=== PATIENT | female | born 1930 | race Caucasian/White ===

== ENCOUNTER 2016-12-17 07:30 | Inpatient (IN) | payer MEDICARE, OTHER ==
--- NOTE | 2016-11-11 16:07 | NUR ---
PMH, allergies, meds reviewed and documented. Preop and DOS instructions given including handouts of medications to stop before surgery, shower instructions with CHG soap, Surgical Services pamphlet, Guidebook, and my contact information.
--- NOTE | 2016-11-19 16:23 | NUR ---
JOINT REPLACEMENT PREOP CLASS PATIENT ATTENDED JOINT REPLACEMENT PREOP CLASS. CASE MANAGEMENT CONTACT INFORMATION PROVIDED. EDUCATION WAS PROVIDED REGARDING WHAT TO EXPECT BEFORE, DURING AND AFTER SURGERY. INCLUDING: OVERVIEW OF ANATOMY AND PHYSIOLOGY HOSPITAL TREATMENT SCHEDULE THERAPY DEMONSTRATION CASE MANAGEMENT RESPONSIBILITIES DISCHARGE PLANNING EQUIPMENT NEEDS JOINT REPLACEMENT WORKBOOK ANTI-COAGULATION SURGERY STRONG NUTRITIONAL PROTOCOL DISCHARGE INSTRUCTIONS [facility] PATIENT PORTAL, WITH INSTRUCTIONS CJR AND PREOP SURVERY PREOP BATHING- CHG GIVEN ALL PATIENT'S QUESTIONS ANSWERED TO THEIR SATISFACTION. PATIENTS AND COACHES ENCOURAGED TO CALL WITH ANY ADDITIONAL QUESTIONS OR CONCERNS. CM FOLLOWING FOR TRANSITIONAL CARE PLANNING NEEDS DURING HOSPITALIZATION.
[2016-12-17] VITALS (40 sets, daily range): BP systolic 122–213; BP diastolic 75–118; PULSE 63–100; RESP 11–18; TEMP 96.7–97.8; O2SAT 92–99; Ht 157.5 cm; Wt 76.7 kg
[~2016-12-17] VITALS: Ht 157.5 cm; Wt 76.7 kg
[~2016-12-17 07:30] MED LIST: ACET-62 PO; ACETAMINOPHEN 500 MG TABLET PO ONE; ASPI81TA2 PO; BETA1TAB22 PO; CALC-984 PO; CARV25TA PO; CLON0.1T PO; DEXAMETHASONE 4mg/ml - 1ml INJECTION IV ONE; FAMOTIDINE 20mg IVPB 50 ML IV ONE; FISH1CAP28 PO; FLUT9.9S EA NOSTRIL; FURO-153 PO; LEVO50TA11 PO; LIDOCAINE 1% (10mg/ml) 2ml SDV SQ ONE; LOSA50TA2 PO; LR 1,000 ML IV SCH; MAGN500C4 PO; MECL-103 PO; METOCLOPRAMIDE 10mg/2ml INJECTION IV ONE; MULT1TAB69 PO; NOZIN NASAL SWAB NS ONE; OMEP20CA10 PO; ONDANSETRON 4mg/2ml INJECTION IV ONE; POTA10TA16 PO
[2016-12-17] MEDS ORDERED: EPINEPHRINE 0.25 MG, BUPIVACAINE 0.25% 75 MG, MORPHINE SULFATE 15 MG in NORMAL SALINE 3... INJ ONE (08:00)
[2016-12-17] MEDS ORDERED: VANCOMYCIN 1 GRAM INJECTION ONE (08:41)
[2016-12-17 08:42] LABS: BASOPHILS % (AUTO) 0.5 % (0-2); EOSINOPHILS # (AUTO) 0.3 T/MM3 (0-0.5); EOSINOPHILS % (AUTO) 5.3 % (0-4); HCT - HEMATOCRIT 37.6 % (36-46); HGB - HEMOGLOBIN 12.2 GM/DL (12-16); IMMATURE GRANULOCYTE # (AUTO) 0.02 T/MM3 (0.00-0.03); IMMATURE GRANULOCYTE % (AUTO) 0.4 % (0.0-0.5); LYMPHOCYTES # (AUTO) 1.9 T/MM3 (1-4.8); LYMPHOCYTES % (AUTO) 35.2 % (23-45); MEAN CORPUSCULAR HGB CONC(MCHC 32.4 GM/DL (31-37); MEAN CORPUSCULAR VOLUME 89.5 UM3 (80-100); MEAN PLATELET VOLUME 9.2 UM3 (9.4-12.4); MONOCYTES # (AUTO) 0.5 T/MM3 (0-0.8); MONOCYTES % (AUTO) 8.8 % (0-9.0); NEUTROPHILS #(AUTO)-ABSOLUTE 2.7 T/MM3 (1.8-7.7); NEUTROPHILS % (AUTO) 49.8 % (33-66); WBC - WHITE BLOOD COUNT 5.5 T/MM3 (4.5-11.0)
[2016-12-17 08:51] LABS: ANION GAP 13 MEQ/L (5-15); BUN/CREATININE RATIO 47 RATIO (6-26); CALCIUM 10.3 MG/DL (8.4-10.2); CHLORIDE 102 MEQ/L (98-107); CO2 - CARBON DIOXIDE 28 MEQ/L (22-30); CREATININE 1.1 MG/DL (0.7-1.2); GLOMERULAR FILTRATION RATE 47; GLUCOSE 104 MG/DL (65-110); POTASSIUM 4.4 MEQ/L (3.6-5); SODIUM 143 MEQ/L (134-144)
--- NOTE | 2016-12-17 09:17 | NUR ---
STATUS ESTEFANIA YEN, CIRCULATING RN, NOTIFIED OF PATIENT BUN OF 52. DR. CHAMORRO TO BE NOTIFIED.
[2016-12-17] MEDS ORDERED: NORMAL SALINE 1,000 ML IV ONE (09:30)
--- NOTE | 2016-12-17 09:59 | NUR ---
CM CM ATTEMPTED VISIT. PT IS AT PROCEDURE. NO FAMILY PRESENT IN THE ROOM. CM CONTACT INFORMATION AND ADVANCED DIRECTIVE INFORMATION IS LEFT AT THE BEDSIDE.
--- NOTE | 2016-12-17 10:22 | ANESPREOP ---
Anesthesia Record Date and Time DATE: 12/17/16 TIME: 10:20 Proposed Surgical Procedure LT TKA NPO since: mn Allergies: Coded Allergies: labetalol (Verified Allergy, Unknown, RASH, 12/17/16) adhesive tape (Verified Adverse Reaction, Intermediate, RASH, 12/17/16) codeine (Verified Adverse Reaction, Intermediate, HYPERACTIVE, 12/17/16) Ht/Wt/BMI Height: 5 ' 2.00 " Weight: 72.600 kg BMI: 29.3 kg/m2 Vital Signs Date Time Temp Pulse Resp B/P Pulse Ox O2 Delivery O2 Flow Rate FiO2 12/17/16 09:35 63 12/17/16 08:31 97.8 15 178/78 94 Room Air Medications Inpatient Medications Current Medications Medications (Trade) Dose Ordered Sig/Patrick Start Time Stop Time Status Last Admin Dose Admin Lactated Ringer's (Lactated Ringers) 1,000 ml @ 50 mls/hr Q20H 12/17/16 07:00 12/17/16 09:31 DC Acetaminophen (Acetaminophen) 500 Mg Tablet, 2 TAB PO BID PRN for PAIN, ( Reported) Do not exceed 3,200 mg of acetaminophen in a 24 hours period. Last Taken: on 12/16/16 2130 Aspirin (Aspirin) 81 Mg Tab.chew, 1 TAB PO WS, (Reported) Last Taken: on 12/08/16 Calcium Carbonate/Vitamin D3 (Calcium 600 + Vit D 400 Caplet) 1 Each Tablet, 1 TAB PO DAILY, (Reported) Last Taken: on 12/16/16 1800 Carvedilol (Coreg) 25 Mg Tablet, 1 TAB PO BIDWM , (Reported) BEST WITH FOOD. Last Taken: on 12/17/16 0700 Clonidine HCl (Clonidine HCl) 0.1 Mg Tablet, 0.5 TAB PO BID, (Reported) 1 TAB IN AM AND 0.5 TAB PO IN PM Last Taken: on 12/17/16 0700 Fluticasone Propionate (Flonase Allergy Relief 50 mcg/actuation Nasal) 9.9 Ml [place].susp, 2 SPRAY EA NOSTRIL DAILY PRN for ALLERY SYMPTOMS, (Reported) Last Taken: on 12/16/16 1400 Furosemide (Lasix) 40 Mg Tablet, 0.5 TAB PO BID , (Reported) ONE HALF TABLET IN AM AND ONE HALF TABLET AT NOON Last Taken: on 12/16/16 1200 Levothyroxine Sodium (Levothyroxine Sodium) 50 Mcg Tablet, 50 MCG PO ACB, (Reported) Once daily before breakfast. Last Taken: on 12/15/16 Losartan Potassium (Cozaar) 50 Mg Tablet, 50 MG PO BID, (Reported) 1 TAB PO IN AM, AND 0.5 TAB IN PM Last Taken: on 12/16/16 1800 Magnesium Oxide (Magnesium) 500 Mg Capsule, 500 MG PO DAILY, (Reported) ON FRI, FRI, FRIDAY Last Taken: on 12/16/16 0700 Meclizine HCl (Meclizine HCl) 25 Mg Tablet, 1 TAB PO Q6HR PRN for dizziness, (Reported) Last Taken: on Unknown Date & Time Multivitamin (Multivitamins) 1 Each Tablet, 1 TAB PO DAILY, (Reported) Last Taken: on 12/16/16 1800 [place]-3 Fatty Acids/Fish Oil (Rosebush 3 1,000 mg Softgel) 1 Each Capsule, 2 CAP PO DAILY, (Reported) Last Taken: on 12/16/16 0700 Omeprazole (Omeprazole) 20 Mg Capsule.dr, 1 CAP PO ACB, (Reported) Last Taken: on 12/17/16 0700 Potassium Chloride (Klor-Con M10) 10 Meq Tablet , 2 TAB PO BID, (Reported) Last Taken: on 12/16/16 0700 Vit A/Vit C/Vit E/Zinc/Copper (Preservision Areds Tablet) 1 Each Tablet, 1 TAB PO DAILY, (Reported) Last Taken: on 12/16/16 1800 Currently on Beta Debbie: Yes Beta Debbie Last Taken: 12/17/16 0700 Medical/Surgical History Anesthesia PMH: Reports: *Hypertension, Arthritis (USES WALKER AT HOME), Cancer (SKIN CANCER-EXCISION), Other ([place]), Reflux (well controlled with meds), Thyroid Disease (LOW, SYNTHROID HOME USE) Smoking Status: Never smoker Use Chewing Tobacco?: No Second Hand Exposure: No Substance Use Type: does not use Alcohol Intake: none HX of Last Menstrual Period: POST MENOPAUSAL Past Surgical History Orthopedic Surgeries: Yes - RIGHT TOTAL SHOULDER Abdominal Surgeries: No Genitourinary Surgeries: Yes - BLADDER SLING Cardiac Surgeries: No Endocrine Surgeries: No Reproductive Surgeries: Yes - VAG HYSTERECTOMY; BREAST BIOPSIES Neurological Surgeries: Yes - LADI CTR Ear Surgeries: Yes - FOR DEAFNESS, LT EAR Nose Surgeries: No Throat Surgeries: No Other Surgeries: - CATARACT LADI; Anesthesia Adverse Reactions: FOUND none Family Hx of Anesthesia Advers: none Hx of Motion Sickness: No Pertinent Findings Laboratory Tests 12/17/16 08:35 Physical Exam Respiratory: Bilat breath sounds equal, Lungs clear Cardiovascular: FOUND Regular rate, rhythm Airway Assessment Mallampati Score: I TMD: 3 Fingerbreadths Neck Extension: Fair Teeth: Chipped Teeth/Crowns Overall Assessment: No Airway Concerns ASA: 3 Plan SAB with sedation vs. GA. Adductor canal block for post operative pain. Anesthesia Plan: TIVA, LMA, GETA Regional: Spinal Discussion Discussed risks/options/alternatives of anesthesia and questions answered. Patient consents. Nursing pain assessment noted. Present: Family Member Attestation Statement Prior to the delivery of any anesthetic medication, I examined the patient, developed the plan, obtained the patient's consent and discussed the risk and benefits of the procedure with the patient/guardian. DIEGO MARSHALL CRNA December 17, 2016 10:22
--- NOTE | 2016-12-17 10:25 | NUR ---
CM PER PT PRE-OP PREFERENCES, IRU SCREEN IS PLACED. CM SPOKE WITH SIOBHAN AT [facility] FOR POSSIBLE SNF PLACEMENT. PER SIOBHAN THEY ARE FULL AND WILL NOT BE ABLE TO TAKE PT FOR SNF PLACEMENT.
[2016-12-17] MEDS ORDERED: CEFAZOLIN 2 GM VIAL IV ONE (11:00)
[2016-12-17] MEDS ORDERED: TRANEXAMIC ACID 1,000 MG in NORMAL SALINE 100 ML IV ONE ×2 (11:00→12:00)
[2016-12-17] MEDS ORDERED: MIDAZOLAM 2mg/2ml INJECTION ONE (11:30)
[2016-12-17] MEDS ORDERED: CEFAZOLIN 1 GRAM INJECTION ONE (12:03)
--- NOTE | 2016-12-17 12:09 | PDHPBRIEF ---
History and Physical Update Date DATE: 12/17/16 TIME: 12:08 I evaluated this patient and found no changes in the history and clinical exam findings. The recommendations and treatment plan is also unchanged from the previous documentation. NICHOLE WEATHERS December 17, 2016 12:09
[2016-12-17] MEDS ORDERED: PROPOFOL 500mg 50 ML IV ONE (12:51)
[2016-12-17] MEDS ORDERED: ROPIVACAINE 0.5% (5mg/ml) 30ml INJ ONE (13:01)
--- NOTE | 2016-12-17 13:23 | PDOPERATE ---
Operative Report Date of Operation 12/17/16 Side: Right Preoperative Diagnosis: knee primary DJD Postoperative Diagnosis Same as preoperative diagnosis. Operation/Procedure: total knee arthroplasty (right) Surgeon Elsy Crowder MD Locksmith Apprentice RAHUL Chapman Complications None. Regional Block: Spinal Estimated Blood Loss See Anesthesia Record. Fluids Please See Anesthesia Record. Description of Operation Ms. Osorio and her right knee were identified and marked in the the preoperative holding area. She was then brought back to the operating suite and proper anesthesia was administered. She was then positioned supine on the operating table. The right lower extremity was then prepped and draped in my normal sterile fashion. Timeout was performed with all operating room personnel. She had a fixed valgus deformity. The leg was exsanguinated and tourniquet inflated 250 mmHg. A standard anterior incision followed by a medial parapatellar approach was utilized. She had damage in both compartments but more severely in the lateral tibial plateau. A distal femoral cut was made in 5 of valgus using intramedullary guide. The femur was sized at a 4 and rotation set using the epicondylar axis. Distal femoral cuts were performed. A proximal tibial cut was made using extramedullary guide. Remaining osteophytes and meniscus were removed. Gaps were checked and they were well balanced and rectangular after a lateral release of the IT band posterior lateral capsule. She was still tight so another 2 mm taken off the tibial cut. Trial components were placed with a 9 mm spacer. This allowed for full range of motion and the patella tracked well. The knee was stable throughout range of motion. The patella was resurfaced with the knee in extension to a size 29. The tibia rotation was then marked and the tibia stamped at the proper rotation at a size 4. The bone was prepared for cementing and all components cemented into place and allowed to cure in extension. Betadine solution was used for 3 minutes during the curing period and then fully irrigated out with 1 L of normal saline. The tourniquet was deflated and hemostasis obtained with electrocautery. After the cement had cured the knee was taken through range of motion check for balance and stability which were good. Vancomycin powder was placed into the wound. The arthrotomy was closed with #1 Vicryl. The remainder of the wound was then closed by my health care legal assistant utilizing 2-0 vycral in the subcutaneous tissue. 4-0 monocryl was used in the subcuticular layer followed by dermabond and a sterile dressing. After closure the patient will be transferred to the recovery room under the care of anesthesia. WAYLON CROWDER MD December 17, 2016 13:12
[2016-12-17] MEDS ORDERED: LORAZEPAM 1 MG TABLET PO PRN (13:45)
[2016-12-17] MEDS ORDERED: HYDROMORPHONE 2mg/ml INJECTION IV PRN (13:45)
[2016-12-17] MEDS ORDERED: ONDANSETRON 4mg/2ml INJECTION IV PRN (13:45)
[2016-12-17] MEDS ORDERED: DiphenhydrAMINE 25 MG CAPSULE PO PRN (13:45)
[2016-12-17] MEDS ORDERED: SENNOSIDES 8.6 MG TABLET PO PRN (13:45)
[2016-12-17] MEDS ORDERED: DiphenhydrAMINE 50 MG/ML INJECTION IV PRN (13:45)
[2016-12-17] MEDS ORDERED: FLUTICASONE NASAL SPRAY 50 MCG EA NOSTRIL PRN (13:45)
[2016-12-17] MEDS ORDERED: NOZIN NASAL SWAB NS ONE (13:45)
[2016-12-17] MEDS ORDERED: TRAMADOL 50 MG TABLET PO PRN (13:45)
[2016-12-17] MEDS ORDERED: MECLIZINE 25 MG TABLET PO PRN (13:45)
[2016-12-17] MEDS ORDERED: PRN ORDERS MC (13:45)
[2016-12-17] MEDS: NOZIN NASAL SWAB NS SCH ×2 (14:00→21:10)
--- NOTE | 2016-12-17 14:13 | ANESPD ---
Peripheral Nerve Blockade Physician: Esau Crowder MD Date: 12/17/16 Discussion Discussed risks/options/alternatives of anesthesia and questions answered. Patient consents. Nursing pain assessment noted. Block Start: 13:56 Block Stop: 14:01 Block Employed: Adductor Canal Indication: post-operative pain Approach: right side confirmed Position: supine Patient: Consent, risks/benefits discussed, Informed, post block act. discussed Monitors: EKG, SpO2, NIBP IV Sedation: No Sedation: Awake Initial Vital Signs First Documented Vital Signs Date Time Temp Pulse Resp B/P Pulse Ox O2 Delivery O2 Flow Rate FiO2 12/17/16 08:31 97.8 70 15 178/78 94 Room Air 12/17/16 13:35 6.00 Post Vital Signs Vital Signs Date Time Temp Pulse Resp B/P Pulse Ox O2 Delivery O2 Flow Rate FiO2 12/17/16 14:10 73 12 189/93 98 Nasal Cannula 2.00 12/17/16 14:05 96.8 Ultrasound Used?: Yes Injectate Ropivacaine (%): 0.5 Ropivacaine (mL): 20 Was Epi 1:200,000 Used?: No Injection Injection made incrementally with constant monitoring and aspiration every [3] ml. GUNNER LY December 17, 2016 14:13
--- NOTE | 2016-12-17 14:24 | ANESPO ---
Post-Op Note Date 12/17/16 Time: 14:20 Status Pt Participated in Evaluation: Pt participated in person Vital Signs Date Time Temp Pulse Resp B/P Pulse Ox O2 Delivery O2 Flow Rate FiO2 12/17/16 14:20 96.8 66 11 189/93 97 Nasal Cannula 2.00 Respiratory Function: Airway patent, Regular respirations Mental Status: Alert/oriented Pain Level Intensity: 5 Hydration: IV infusing Complications during Recovery None apparent Follow-Up Instructions Instructions Per Surgeon DIEGO MARSHALL CRNA December 17, 2016 14:24
--- NOTE | 2016-12-17 14:25 | NUR ---
ARRIVAL TO FLOOR THE PT ARRIVED BACK TO THE FLOOR AT THIS TIME. PT WAS TRANSFERRED FROM THE CART TO THE BED BY SLIDING BOARD WITH X3 ASSIST. THE PT DENIES PAIN AT THIS TIME. POST OP VITAL SIGNS STARTED, PT HAS ELEVATED BLOOD PRESSURE AT THIS TIME. DR. CHAMORRO AT BEDSIDE, UPDATED ON PT'S BLOOD PRESSURE. THIS RN INSTRUCTED TO CONTACT DIEGO MARSHALL CRNA FOR FURTHER INSTRUCTION. DIEGO MARSHALL CRNA NO LONGER IN THE BUILDING. THIS RN PAGED RAHUL RUSS AND RECEIVED ORDERS TO CONSULT THE HOSPITALIST AT THIS TIME FOR PT'S HTN. NO FURTHER ORDERS RECEIVED.
--- NOTE | 2016-12-17 14:35 | DI ---
Indication: ITS.REASON: POSTOP right knee replacement PROCEDURE: KNEE RIGHT 2 VIEW: Encounter: Initial Comparison: None Findings: Postoperative changes of right total knee replacement are seen. There is expected postoperative subcutaneous gas. No evidence of hardware failure or acute fracture. No retained radiopaque surgical instruments or sponges. Overlying material causing artifact. Impression: New right total knee prosthesis without evidence of immediate complication. .
[2016-12-17] MEDS: NORMAL SALINE 1,000 ML IV SCH (14:36)
--- NOTE | 2016-12-17 16:16 | NUR ---
PHYSICIAN NOTIFICATION INFORMED DR. ROBBINS OF PT'S ELEVATED BLOOD PRESSURES POST SURGERY. DR. ROBBINS CAME TO THE FLOOR AT THIS TIME TO SEE THE PT AND PLACED ORDERS FOR A ONE TIME DOSE OF ROXICODONE.
[2016-12-17] MEDS ORDERED: OXYCODONE I.R. 5 MG TABLET PO ONE (16:45)
--- NOTE | 2016-12-17 17:14 | CONSPD ---
TOMAS MELENDEZ PELLET PREPARATION OPERATOR 12/17/16 1634: Consultation Info Date DATE: 12/17/16 TIME: 16:33 Date of Consultation: December 17, 2016 Attending Physician: Dr. Husain Reason for Consultation: Elevated BP HPI - Adult Date DATE: 12/17/16 TIME: 16:33 General Chief Complaint: Elevated BP History of Present Illness Alessandra Osorio is an 86 y/o woman s/p Rt TKA per Dr. Crowder, seen in consultation for elevated postop BP. Her SBP exceeded 200 and she received hydralazine x2 in PACU. She carries a hx of uncontrolled HTN and is on multiple classes of antiHTN (Coreg, Clonidine, Lasix). She sees Dr. Liu for cardiac care. She otherwise reports being in her normal state of health - chronic knee pain but denies any recent illnesses, fever/chills, cough/congestion, dizziness, weakness , appetite changes, abdominal pain or GI complaints, dysuria, rashes, leg swelling. She notes a hx of constipation. She had a spinal and had b/l distal paresthesias, but these are resolving. Pain is under fair control, 4-5/10. Past Medical History Past Medical History Patient's Medical History: (1) Diastolic CHF, chronic (2) Hypertension (3) Hyperlipemia (4) Pulmonary HTN (5) Gout (6) GERD (gastroesophageal reflux disease) (7) Hypothyroidism (8) Obesity (BMI 30-39.9) Surgical History Patient's Surgical History: 05/09/15 Echo EF 63%, mild LVH, diastolic dysfunction, mild AV scl, tr AI/MR, thick MV, mod MAC, mild TR/PI, PAP 40 mmHg 05/09/15 Holter - sinus, ST, rare PACs & PVCs 05/04/15 Renal duplex normal 04/26/15 Stress test Normal Breast bx 1956 & 2000 - benign 1969 Vaginal hysterectomy, cystocele/rectocele MMK 1988 Rt shoulder hemiarthroplasty B/L cataracts Left ear Current Medications Home Meds Active Scripts Docusate Sodium (Colace) 100 Mg Capsule, 100 MG PO BID, #60 CAP Prov:NICHOLE WEATHERS 12/18/16 Polyethylene Glycol 3350 (Healthylax) 17 Gm Powd.pack, 17 G PO DAILY for 30 Days Prov:NICHOLE WEATHERS 12/18/16 Magnesium Hydroxide (Milk of Magnesia) 400 Mg/5 Ml Oral.susp, 30 ML PO 0800 for 30 Days Prov:JASIELNICHOLE PATEL RAHUL 12/18/16 Tramadol HCl (Ultram) 50 Mg Tablet, 50-100 MG PO Q6H Y for PAIN, #50 TAB Prov:JASIELNICHOLE PATEL RAHUL 12/18/16 Aspirin *EC* (Aspirin EC) 325 Mg Tablet.dr, 325 MG PO BID, #84 TAB Take this for blood clot prevention for 6 weeks. Prov:JASIELNICHOLE PATEL Regla KAY 12/18/16 Acetaminophen (Tylenol) 325 Mg Tablet, 650 MG PO QID, #50 TAB Prov:JASIEL,NICHOLE KAY 12/18/16 Reported Medications Losartan Potassium (Cozaar) 50 Mg Tablet, 50 MG PO BID, TAB 1 TAB PO IN AM, AND 0.5 TAB IN PM 11/28/16 Levothyroxine Sodium (Levothyroxine Sodium) 50 Mcg Tablet, 50 MCG PO ACB, TAB Once daily before breakfast. 11/11/16 Fluticasone Propionate (Flonase Allergy Relief 50 mcg/actuation Nasal) 9.9 Ml [place].susp, 2 SPRAY EA NOSTRIL DAILY Y for ALLERY SYMPTOMS 11/11/16 Vit A/Vit C/Vit E/Zinc/Copper (Preservision Areds Tablet) 1 Each Tablet, 1 TAB PO DAILY 11/11/16 [place]-3 Fatty Acids/Fish Oil ([place] 3 1,000 mg Softgel) 1 Each Capsule, 2 CAP PO DAILY 11/11/16 Magnesium Oxide (Magnesium) 500 Mg Capsule, 500 MG PO DAILY, CAP ON FRI, FRI, Friday11/11/16 Furosemide (Lasix) 40 Mg Tablet, 0.5 TAB PO BID, TAB ONE HALF TABLET IN AM AND ONE HALF TABLET AT NOON 11/11/16 Carvedilol (Coreg) 25 Mg Tablet, 1 TAB PO BIDWM, TAB BEST WITH FOOD. 11/11/16 Clonidine HCl (Clonidine HCl) 0.1 Mg Tablet, 0.5 TAB PO BID, TAB 1 TAB IN AM AND 0.5 TAB PO IN PM 11/11/16 Calcium Carbonate/Vitamin D3 (Calcium 600 + Vit D 400 Caplet) 1 Each Tablet, 1 TAB PO DAILY 04/08/15 Multivitamin (Multivitamins) 1 Each Tablet, 1 TAB PO DAILY 04/08/15 Omeprazole (Omeprazole) 20 Mg Capsule.dr, 1 CAP PO ACB 04/08/15 Potassium Chloride (Klor-Con M10) 10 Meq Tablet, 2 TAB PO BID 04/08/15 Meclizine HCl (Meclizine HCl) 25 Mg Tablet, 1 TAB PO Q6HR Y for dizziness, TAB 0300,0900,1500,2100 04/08/15 Discontinued Reported Medications Acetaminophen (Acetaminophen) 500 Mg Tablet, 2 TAB PO BID Y for PAIN, TAB Do not exceed 3,200 mg of acetaminophen in a 24 hours period. 11/11/16 Aspirin (Aspirin) 81 Mg Tab.chew, 1 TAB PO WS, TAB 04/08/15 Allergies: Coded Allergies: labetalol (Verified Allergy, Unknown, RASH, 12/18/16) adhesive tape (Verified Adverse Reaction, Intermediate, RASH, 12/18/16) codeine (Verified Adverse Reaction, Intermediate, HYPERACTIVE, 12/18/16) Family History Family History: Father - of aneurism at age 88 Mother - at age 86, unknown cause Sister - at age 65, heart disease and renal failure Social History Smoking Status: Never smoker Does patient use chewing tobac: No Second Hand Exposure: No Substance Use Type: does not use Sexuality: male partner Advance Directives: No DPOA for Healthcare Only Social History Comments PCP - Dr. Nava CV - Dr. Liu Review of Systems Constitutional: DENIES: appetite decrease, chills, dizziness, fever, weakness Eyes Vision: DENIES: vision changes ENMT Sinuses: NOT FOUND: congestion, rhinorrhea Mouth/Throat: DENIES: sore throat Cardiovascular DENIES: chest pain, dyspnea on exertion Vascular: DENIES: pedal edema Pulmonary Respiratory: DENIES: cough, dyspnea GI Upper Abdomen: DENIES: nausea, vomiting Lower Abdomen: constipation General: DENIES: dysuria Musculoskeletal General: see HPI Integumentary Skin: DENIES: rash Neurological General: DENIES: headache, seizures Psychiatric Psychiatric: DENIES: anxiety Hematologic/Lymphatic DENIES: anemia All Other Systems All Other Systems: Reviewed (remainder of 10-point ROS Neg.) Physical Exam General General Nourishment: well nourished, well developed, obese Vital Signs Vital Signs Date Time Temp Pulse Resp B/P Pulse Ox O2 Delivery O2 Flow Rate FiO2 12/17/16 16:05 68 18 98 Nasal Cannula 1.50 12/17/16 16:00 211/94 12/17/16 14:31 97.6 Height (Feet): 5 Height (Inches): 2.00 Eyes Brief: FOUND: PERRL, NOT FOUND: scleral icterus ENMT Brief: NOT FOUND: lesions, mucosa moist (slightly dry) Neck Brief: NOT FOUND: adenopathy, nuchal rigidity Respiratory Auscultation: FOUND: normal, NOT FOUND: rales, rhonchi, wheezes Cardiovascular Auscultation: FOUND: S1, S2, regular Peripheral Pulses: 2+: Dorasalis Pedis (L), Dorsalis Pedis (R), Radial (L), Radial (R) Edema: 0: Anasarca, Arm (L), Arm (R), Face, Leg (L), Leg (R) Abdomen Inspection: NOT FOUND: distention Palpation: FOUND: soft, NOT FOUND: involuntary guarding, rebound, tender, voluntary guarding Auscultation: FOUND: normo active Lymphatic (brief) Lymphatic Brief: NOT FOUND: adenopathy Musculoskeletal (brief) Musculoskeletal Brief: FOUND: other (dressing + polar pack on right knee) Integumentary (brief) Integumentary Brief: FOUND: dry, pink, warm Neurologic (brief) Neurological Brief: FOUND: sensory (intact to light touch - plantar surfaces of feet), NOT FOUND: facial droop, ptosis Neurologic RN Documented GCS Eye Opening: Verbal: Motor: Total: Psychiatric (brief) FOUND: alert, attentive, normal affect, oriented Laboratory Laboratory Tests Test 12/17/16 08:35 White Blood Count 5.5T/MM3 Red Blood Count 4.20M/MM3 Hemoglobin 12.2GM/DL Hematocrit 37.6% Mean Corpuscular Volume 89.5UM3 Mean Corpuscular Hemoglobin 29.0UUG Mean Corpuscular Hemoglobin Concent 32.4GM/DL RDW Standard Deviation 43.2FL Platelet Count 297T/MM3 Mean Platelet Volume 9.2UM3 Immature Granulocyte % (Auto) 0.4% Neutrophils (%) (Auto) 49.8% Lymphocytes (%) (Auto) 35.2% Monocytes (%) (Auto) 8.8% Eosinophils (%) (Auto) 5.3% Basophils (%) (Auto) 0.5% Absolute Immature Granulocyte (auto 0.02T/MM3 Absolute Neutrophils (auto) 2.7T/MM3 Absolute Lymphocytes (auto) 1.9T/MM3 Absolute Monocytes (auto) 0.5T/MM3 Absolute Eosinophils (auto) 0.3T/MM3 Absolute Basophils (auto) 0.0T/MM3 Turbidity < 20 Sodium Level 143MEQ/L Potassium Level 4.4MEQ/L Chloride Level 102MEQ/L Carbon Dioxide Level 28MEQ/L Anion Gap 13MEQ/L Blood Urea Nitrogen 52.0MG/DL Creatinine 1.1MG/DL Glomerular Filtration Rate Calc 47 BUN/Creatinine Ratio 47RATIO Glucose Level 104MG/DL Calculated Osmolality 289MOSM/KG Calcium Level 10.3MG/DL Icterus Index < 2 Chemistry Specimen Hemolysis < 15 Impression/Recommendation Problems: (1) Hypertension Status: Chronic Assessment & Plan: Acute post op elevations (2) Degenerative arthritis of right knee Status: Chronic Qualifiers: Osteoarthritis type: primary Qualified Codes: M17.11 - Unilateral primary osteoarthritis, right knee Assessment & Plan: s/p right TKA 12/17/16 Dr. Crowder (3) Gout Status: Chronic (4) Diastolic CHF, chronic Status: Chronic (5) Pulmonary HTN Status: Chronic (6) GERD (gastroesophageal reflux disease) Status: Chronic (7) Hyperlipemia Status: Chronic (8) Hypothyroidism Status: Chronic (9) Obesity (BMI 30-39.9) Status: Chronic Impression Acute postop elevations in BP with underlying hx of HTN - sees Dr. Liu Preop assessments reviewed - labs on 11/27/16 showed BUN 39 and cr 1.27 eGFR was 40; K 5.2; EKG NSR; CXR showed clear lungs Recommendation Patient was seen and examined along with Dr. Husain. Plan was discussed and formulated with Dr. Husain: 1. BP has marginally improved, with most systolics <200 mmHg or just above. 2. Start with trying to achieve better pain control - Roxicodone x1. 3. Monitor breathing and sats with combination of narcotics + propofol, suspect at-risk for sleep apnea/hypoxia d/t body habitus 4. If BP does not decrease with additional pain control, will increase evening Cozaar to 50 mg. IV Hydralazine PRN. Could also consider clonidine patch. Coreg dose is at upper dose limits and she's due to get evening dose soon. HR is in the 70s. 5. Recheck BMP in am to check electrolytes given she's been NPO and on diuretics /ARB, plus likely hx of CKD. 6. Postop orders per attending. 7. Discharge plans briefly discussed - pt would like to go to IRU if possible. Thank you for this consult - we will follow Mrs. Osorio along with you during her hospital course. AMRITA HUSAIN MD 12/23/16 0944: Past Medical History Current Medications Home Meds Active Scripts Docusate Sodium (Colace) 100 Mg Capsule, 100 MG PO BID, #60 CAP Prov:NICHOLE WEATHERS 12/18/16 Polyethylene Glycol 3350 (Healthylax) 17 Gm Powd.pack, 17 G PO DAILY for 30 Days Prov:NICHOLE WEATHERS 12/18/16 Magnesium Hydroxide (Milk of Magnesia) 400 Mg/5 Ml Oral.susp, 30 ML PO 0800 for 30 Days Prov:NICHOLE WEATHERS 12/18/16 Tramadol HCl (Ultram) 50 Mg Tablet, 50-100 MG PO Q6H Y for PAIN, #50 TAB Prov:NICHOLE WEATHERS 12/18/16 Aspirin *EC* (Aspirin EC) 325 Mg Tablet.dr, 325 MG PO BID, #84 TAB Take this for blood clot prevention for 6 weeks. Prov:NICHOLE WEATHERS 12/18/16 Acetaminophen (Tylenol) 325 Mg Tablet, 650 MG PO QID, #50 TAB Prov:NICHOLE WEATHERS 12/18/16 Reported Medications Losartan Potassium (Cozaar) 50 Mg Tablet, 50 MG PO BID, TAB 1 TAB PO IN AM, AND 0.5 TAB IN PM 11/28/16 Levothyroxine Sodium (Levothyroxine Sodium) 50 Mcg Tablet, 50 MCG PO ACB, TAB Once daily before breakfast. 11/11/16 Fluticasone Propionate (Flonase Allergy Relief 50 mcg/actuation Nasal) 9.9 Ml [place].susp, 2 SPRAY EA NOSTRIL DAILY Y for ALLERY SYMPTOMS 11/11/16 Vit A/Vit C/Vit E/Zinc/Copper (Preservision Areds Tablet) 1 Each Tablet, 1 TAB PO DAILY 11/11/16 [place]-3 Fatty Acids/Fish Oil ([place] 3 1,000 mg Softgel) 1 Each Capsule, 2 CAP PO DAILY 11/11/16 Magnesium Oxide (Magnesium) 500 Mg Capsule, 500 MG PO DAILY, CAP ON FRI, FRI, Friday11/11/16 Furosemide (Lasix) 40 Mg Tablet, 0.5 TAB PO BID, TAB ONE HALF TABLET IN AM AND ONE HALF TABLET AT NOON 11/11/16 Carvedilol (Coreg) 25 Mg Tablet, 1 TAB PO BIDWM, TAB BEST WITH FOOD. 11/11/16 Clonidine HCl (Clonidine HCl) 0.1 Mg Tablet, 0.5 TAB PO BID, TAB 1 TAB IN AM AND 0.5 TAB PO IN PM 11/11/16 Calcium Carbonate/Vitamin D3 (Calcium 600 + Vit D 400 Caplet) 1 Each Tablet, 1 TAB PO DAILY 04/08/15 Multivitamin (Multivitamins) 1 Each Tablet, 1 TAB PO DAILY 04/08/15 Omeprazole (Omeprazole) 20 Mg Capsule.dr, 1 CAP PO ACB 04/08/15 Potassium Chloride (Klor-Con M10) 10 Meq Tablet, 2 TAB PO BID 04/08/15 Meclizine HCl (Meclizine HCl) 25 Mg Tablet, 1 TAB PO Q6HR Y for dizziness, TAB 0300,0900,1500,2100 04/08/15 Discontinued Reported Medications Acetaminophen (Acetaminophen) 500 Mg Tablet, 2 TAB PO BID Y for PAIN, TAB Do not exceed 3,200 mg of acetaminophen in a 24 hours period. 11/11/16 Aspirin (Aspirin) 81 Mg Tab.chew, 1 TAB PO WS, TAB 04/08/15 Allergies: Coded Allergies: labetalol (Verified Allergy, Unknown, RASH, 12/18/16) adhesive tape (Verified Adverse Reaction, Intermediate, RASH, 12/18/16) codeine (Verified Adverse Reaction, Intermediate, HYPERACTIVE, 12/18/16) Impression/Recommendation Impression Seen and examined by me same day as nurse practitioner Tomas Melendez. Agree with her above histories system reviews physical exam assessment and plan. Minor modifications to medications of her home regimen an initial short acting anti- adrenergic medications will be given. TOMAS MELENDEZ APRN December 17, 2016 16:34 AMRITA HUSAIN MD December 23, 2016 09:44
--- NOTE | 2016-12-17 17:30 | NUR ---
PT NOTE: Attempted PT eval, pt feeling nauseous. Will attempt evaluation in AM. Call [phone] with questions.
[2016-12-17] MEDS: ONDANSETRON 4mg/2ml INJECTION IV PRN (17:34)
[2016-12-17] MEDS: POTASSIUM CHLORIDE 10 MEQ TABLET PO SCH (17:35)
[2016-12-17] MEDS: ACETAMINOPHEN 325 MG TABLET PO SCH ×2 (17:35→21:10)
[2016-12-17] MEDS: CARVEDILOL 25 MG TABLET PO SCH (17:41)
[2016-12-17] MEDS: FUROSEMIDE 20 MG TABLET PO SCH (17:41)
--- NOTE | 2016-12-17 18:30 | NUR ---
PHYSICIAN NOTIFICATION NOTIFIED DR. ROBBINS THAT PT'S BLOOD PRESSURE REMAINS ELEVATED AFTER ADMINISTRATION OF ROXICODONE. RECEIVED ORDER TO GIVE THE SCHEDULED CATAPRES DOSE AT 2100 EARLY AND TO RE-EVALUATE IN ONE HOUR. WILL CONTINUE TO MONITOR.
--- NOTE | 2016-12-17 18:35 | NUR ---
NAUSEA/EMESIS PT NAUSEATED AT THIS TIME. PT HAD OUTPUT OF 85 CC OF CLEAR EMESIS. PT REPORTS FEELING BETTER AFTER VOMITING. WILL CONTINUE TO MONITOR.
[2016-12-17] MEDS: CLONIDINE 0.1 MG TABLET PO SCH (18:48)
[2016-12-17] MEDS: CEFAZOLIN 2 G in NORMAL SALINE 100 ML IV SCH (19:30)
--- NOTE | 2016-12-17 19:43 | NUR ---
PHYSICIAN NOTIFICATION INFORMED DR. ROBBINS OF PT STATUS AND UPDATED PT BLOOD PRESSURES POST ADMINISTRATION OF THE CATAPRES. RECEIVED INSTRUCTION TO CONTINUE TO MONITOR PT STATUS AND FOR CALL PARAMETERS FOLLOWS: CALL DOCTOR AFTER TWO CONSECTUTIVE READINGS WITH A SYSTOLIC PRESSURE >200.
[2016-12-17] MEDS: LOSARTAN 50 MG TABLET PO SCH (21:09)
[2016-12-17] MEDS: ASPIRIN *EC* 325mg TABLET PO SCH (21:10)
[2016-12-17] MEDS ORDERED: SENNOSIDES 8.6 MG TABLET PO SCH (22:00)
[2016-12-18] MEDS: NORMAL SALINE 1,000 ML IV SCH (02:01)
[2016-12-18] MEDS: CEFAZOLIN 2 G in NORMAL SALINE 100 ML IV SCH (03:26)
[2016-12-18] MEDS: ONDANSETRON 4mg/2ml INJECTION IV PRN (03:45)
[2016-12-18 03:51] VITALS: BP 150/78; PULSE 108; RESP 18; TEMP 97.2; O2SAT 93
--- NOTE | 2016-12-18 04:26 | NUR ---
SHIFT SUMMARY PT IS ALERT AND ORIENTED X3. PT HAS BEEN WEANED TO ROOM AIR AND MAINTAINS O2 IN THE LOW 90S. BP HAS CAME DOWN SINCE EARLIER IN THE SHIFT WITH A DOSE OF PRN HYDRALAZINE GIVEN. PT HAS DENIED NEED FOR PRN PAIN MEDICATION, SCHEDULED TYLENOL HAS BEEN SUFFICIENT AT THIS TIME. A DOSE OF ZOFRAN WAS GIVEN TO DECREASE NAUSEA. PT TRANSFERS TO THE [facility] WITH 1 ASSIST, WITH ADEQUATE URINE OUTPUT. WILL CONTINUE TO MONITOR.
[2016-12-18 04:48] LABS: HCT - HEMATOCRIT 35.2 % (36-46); HGB - HEMOGLOBIN 11.7 GM/DL (12-16); MEAN CORPUSCULAR HGB 28.9 UUG (26-34); MEAN CORPUSCULAR HGB CONC(MCHC 33.2 GM/DL (31-37); MEAN CORPUSCULAR VOLUME 86.9 UM3 (80-100); MEAN PLATELET VOLUME 9.7 UM3 (9.4-12.4); RED BLOOD COUNT 4.05 M/MM3 (4.00-5.20); WBC - WHITE BLOOD COUNT 11.2 T/MM3 (4.5-11.0)
[2016-12-18 04:54] LABS: ANION GAP 16 MEQ/L (5-15); BUN/CREATININE RATIO 39 RATIO (6-26); CHLORIDE 104 MEQ/L (98-107); CO2 - CARBON DIOXIDE 25 MEQ/L (22-30); CREATININE 0.9 MG/DL (0.7-1.2); GLOMERULAR FILTRATION RATE 59; GLUCOSE 132 MG/DL (65-110); POTASSIUM 3.6 MEQ/L (3.6-5); SODIUM 145 MEQ/L (134-144)
[2016-12-18] MEDS: NOZIN NASAL SWAB NS SCH ×2 (05:56→14:54)
[2016-12-18] MEDS ORDERED: OMEPRAZOLE 20 MG CAPSULE PO SCH (06:30)
[2016-12-18] MEDS ORDERED: LEVOTHYROXINE 50 MCG TABLET PO SCH (06:30)
[2016-12-18 07:37] VITALS: BP 135/71; PULSE 99; RESP 18; TEMP 98.3; O2SAT 90
[2016-12-18] MEDS ORDERED: SCOPOLAMINE 1.5 MG PATCH TD ONE (07:45)
[2016-12-18 07:54] VITALS: PULSE 99; RESP 18
--- NOTE | 2016-12-18 07:56 | PDORTHOPN ---
Subjective Date DATE: 12/18/16 TIME: 07:45 Subjective Alessandra looks good this AM Pain is "less than I thought it was going to be". Has some n/v with moving too much. Denies CP, cough or SOA. Using a low dose of oxygen. Objective Vital Signs Vital signs Vital Signs 12/17/16 12/17/16 12/18/16 12/18/16 20:49 23:36 03:51 07:37 Temp 96.7 97.2 98.3 Pulse 90 100 108 99 Resp 18 18 18 18 B/P 181/91 152/75 150/78 135/71 Pulse Ox 96 97 93 90 O2 Delivery Nasal Cannula Room Air Nasal Cannula O2 Flow Rate 1.00 1.00 0.50 12/18/16 07:54 Pulse 99 Resp 18 Height (Feet): 5 Height (Inches): 2.00 Weight (Kilograms): 76.700 General General Appearance: No Acute Distress Respiratory (Brief) Respiratory Brief: FOUND: non-labored Cardiovascular (Brief) Cardiac: FOUND: calf soft, nontender, pedal pulses intact Surgical Site Incision: FOUND: Mepilex dressing intact, no drainage Neurologic (Brief) Neurological Brief: FOUND: extremities w/o deficits, neuro intact Psychiatric (Brief) Psychiatric Brief: FOUND: alert, no acute distress Laboratory Laboratory Laboratory Tests 12/17/16 08:35 12/18/16 04:14 Laboratory Tests 12/17/16 08:35 12/18/16 04:14 Assessment & Plan Problems: (1) Degenerative arthritis of right knee Status: Chronic Qualifiers: Osteoarthritis type: primary Qualified Codes: M17.11 - Unilateral primary osteoarthritis, right knee Assessment & Plan: Current anti-coagulation protocol for VTE prophylaxis. SCD's and early mobilization for added DVT coverage. BPs improved. Hospitalist consult noted. WBC elevation is likely a stress response. Pt is afebrile and has no S/SX of infection. Scopolamine patch for n/v. IRU consult in place. PT/OT services to improve independent function. Discharge Planning per Case Management. Hospital Course Summary Disclaimer The visit summary below is not to be considered part of the above Progress Note. NICHOLE WEATHERS December 18, 2016 07:56 Hospital Course Summary Disclaimer The visit summary below is not to be considered part of the above Progress Note. NICHOLE WEATHERS December 18, 2016 07:56
--- NOTE | 2016-12-18 08:20 | NUR ---
CM CM IN TO VISIT WITH PT. SHE IS ALERT AND ORIENTED. HER FIRST CHOICE IS TO GO TO IRU. SHE IS MADE AWARE THAT IRU SCREEN WAS PLACED. SHE IS MADE AWARE THAT [facility] IS FULL AND CAN'T ACCOMMODATE SNF STAY. HER SECOND CHOICE IS [facility]. SHE GIVES PERMISSION FOR REFERRAL TO [facility] IS [facility] IS FULL. PT IS GIVEN CM CONTACT INFORMATION. Addendum: 12/18/16 at 0821 by LOS UPTON RN Amended: Links added.
--- NOTE | 2016-12-18 08:28 | NUR ---
CM REFERRALS FOR [facility] AND [facility] ARE LEFT IN VM FOR JOHNATHAN. PORTALS ARE OPENED.
[2016-12-18 08:45] VITALS: BP 150/68; PULSE 86
[2016-12-18] MEDS: CLONIDINE 0.1 MG TABLET PO SCH (08:46)
[2016-12-18] MEDS: POTASSIUM CHLORIDE 10 MEQ TABLET PO SCH (08:46)
[2016-12-18] MEDS: CARVEDILOL 25 MG TABLET PO SCH (08:46)
[2016-12-18] MEDS: LOSARTAN 50 MG TABLET PO SCH (08:47)
[2016-12-18] MEDS: FUROSEMIDE 20 MG TABLET PO SCH (08:47)
[2016-12-18] MEDS: ACETAMINOPHEN 325 MG TABLET PO SCH ×2 (08:47→12:24)
[2016-12-18] MEDS: ASPIRIN *EC* 325mg TABLET PO SCH (08:47)
[2016-12-18] MEDS ORDERED: MAGNESIUM OXIDE 400 MG TABLET PO SCH (09:00)
[2016-12-18] MEDS ORDERED: DOCUSATE SODIUM 100 MG CAPSULE PO SCH (09:00)
[2016-12-18] MEDS ORDERED: POLYETHYL.GLYCOL 3350 PACKET 17gm PO SCH (09:00)
[2016-12-18] MEDS ORDERED: CALCIUM 600mg + VIT D 400 TABLET PO SCH (09:00)
--- NOTE | 2016-12-18 09:07 | NUR ---
CM PER PHONE CONVERSATION WITH JOHNATHAN FROM [employer]. [facility] IS FULL. [facility] HAS A SEMI-PRIVATE ROOM AVAILABLE. CM WILL MAKE PT AWARE.
--- NOTE | 2016-12-18 11:19 | PNPDOC ---
PATRIA MELENDEZ RIVET HOLE MACHINE OPERATOR 12/18/16 1114: Subjective Date DATE: 12/18/16 TIME: 11:10 Subjective Alessandra is doing well this morning. Her pain is under fairly good control, though she adds that PT is here so it will probably be more painful soon. She denies any chest pain or difficulty breathing. She is off oxygen and her bp has improved. She feels denies abdominal bloating or pain. She felt a little nauseated before breakfast but that has resolved after eating. She is hopeful to go to IRU. Objective Vital Signs Vital signs Vital Signs Date Time Temp Pulse Resp B/P Pulse Ox O2 Delivery O2 Flow Rate FiO2 12/18/16 08:45 86 150/68 12/18/16 07:54 18 12/18/16 07:37 98.3 90 Nasal Cannula 0.50 Height (Feet): 5 Height (Inches): 2.00 Weight (Kilograms): 76.700 General General Appearance: Alert, Obese, Orientated x 3, Well Nourished, Well Developed, No Acute Distress Eyes (Brief) Eyes: FOUND: PERRL, NOT FOUND: scleral icterus ENMT (Brief) ENMT: FOUND: mucosa moist, NOT FOUND: pharnyx erythema Respiratory (Brief) Respiratory: FOUND: clear all lozano, equal bilaterally Cardiovascular (Brief) Cardiac: FOUND: regular rate, regular rhythm Abdomen (Brief) Abdominal: FOUND: BS normo active x4, soft, NOT FOUND: distended, tender Extremities (Brief) Extremity : Extremity Finding: FOUND: pain (knee - postop) Comments dressing to right knee Musculoskeletal (Brief) Musculoskeletal: FOUND: loss of motion (postop limitations) Integumentary (Brief) Integumentary: FOUND: dry, pink, warm Psychiatric (Brief) Psychiatric: FOUND: alert, attentive, normal affect, oriented Laboratory Laboratory Laboratory Tests 12/17/16 08:35 12/18/16 04:14 Laboratory Tests 12/17/16 08:35 12/18/16 04:14 Assessment & Plan Problems: (1) Hypertension Status: Chronic Assessment & Plan: Acute post op elevations (2) Hypernatremia Status: Acute (3) Leukocytosis Status: Acute (4) Normocytic anemia Status: Acute (5) Degenerative arthritis of right knee Status: Chronic Qualifiers: Osteoarthritis type: primary Qualified Codes: M17.11 - Unilateral primary osteoarthritis, right knee Assessment & Plan: s/p right TKA 12/17/16 Dr. Crowder (6) Gout Status: Chronic (7) Diastolic CHF, chronic Status: Chronic (8) Pulmonary HTN Status: Chronic (9) GERD (gastroesophageal reflux disease) Status: Chronic (10) Hyperlipemia Status: Chronic (11) Hypothyroidism Status: Chronic (12) Obesity (BMI 30-39.9) Status: Chronic Plan/Intensity of Service BP much improved - continue routine home meds. Labs reviewed - renal function stable, BUN improved from 52 to 35. Cr. 0.9. Na slightly elevated at 145. Mild leukocytosis - suspect stress response. Pt is afebrile and has been weaned off oxygen. mild postop anemia - monitor. Medically stable for transfer when she meets ortho criteria. Code Status Full Code Hospital Course Summary Disclaimer The hospital course summary below is not to be considered part of the above Progress Note. AMRITA ROBBINS MD 12/18/16 1746: Assessment & Plan Problems: (1) Hypertension Status: Chronic Assessment & Plan: Acute post op elevations (2) Hypernatremia Status: Acute (3) Leukocytosis Status: Acute (4) Normocytic anemia Status: Acute (5) Degenerative arthritis of right knee Status: Chronic Qualifiers: Osteoarthritis type: primary Qualified Codes: M17.11 - Unilateral primary osteoarthritis, right knee Assessment & Plan: s/p right TKA 12/17/16 Dr. Crowder (6) Gout Status: Chronic (7) Diastolic CHF, chronic Status: Chronic (8) Pulmonary HTN Status: Chronic (9) GERD (gastroesophageal reflux disease) Status: Chronic (10) Hyperlipemia Status: Chronic (11) Hypothyroidism Status: Chronic (12) Obesity (BMI 30-39.9) Status: Chronic Assessment & Plan: Read and agree with above note physical findings in assessment and plan from nurse practitioner Patria Melendez. Hypertension appears adequately improve without rebound hypotension. Would continue home medications at current dosages. Consider clonidine as a patch form to reduce rebound hypertension. From a medical standpoint patient is able to discharge when surgery sees PATRIA Cedeño APRN December 18, 2016 11:14 AMRITA ROBBINS MD December 18, 2016 17:46
[2016-12-18 12:04] VITALS: BP 140/69; PULSE 83; RESP 16; TEMP 95.3; O2SAT 97
--- NOTE | 2016-12-18 12:14 | NUR ---
IRU referral received. Met with patient and reviewed programmatic expectations of IRU. Patient acknowledged expectation of need for 3 hours of therapy, 5 days/week. Patient stated she will do whatever she needs to in order to return home. She reports she was Mod I at home prior to surgery. Notes is gone 2-3 days/nights per week for his job and she cannot manage at home in her current condition. PT/OT notes recommend IRU. Reviewed case with Dr. Balderas and he accepted patient for IRU. CM notified.
--- NOTE | 2016-12-18 12:50 | NUR ---
DEMETRIS PT IS MADE AWARE OF HER ACCEPTANCE TO IRU. SHE AND HER SPOUSE ARE IN AGREEMENT TO THIS DC PLAN. NICHOLE SOMMER IS IN ROOM. HE PLAN TO DC PT TODAY. YAMILE ON IRU ARE MADE AWARE.
--- NOTE | 2016-12-18 12:51 | DSPDOC ---
General Date Date DATE: 12/18/16 TIME: 12:49 Attending Physician Esau Crowder MD Admitting Physician Esau Crowder MD Consulting Physician Burke Ford Admitting Diagnosis PRIMARY DEGENERATIVE JOINT DISEASE RIGHT KNEE Discharge Diagnosis Primary DJD right knee Procedures Rr total knee arthroplasty History of Present Illness HPI Elements This patient was admitted for elective surgical tx of end stage degenerative joint disease that failed to respond to conservative treatment. Further details of this is found in the admission H&P. Hospital Course After appropriate preoperative clearance and signing of operative consent, the patient was given IV antibiotics, according to orthopedic protocol. The patient was taken to the operating room and underwent elective right total knee arthroplasty. Following surgery, antibiotics were discontinued less than 24 hours according to joint protocol. Aspirin was initiated and SCDs added for DVT prevention. She developed some hypertension and the hospitalist was consulted to manage this. Her BPs have returned to normal at discharge. The dressing was clean, dry , and intact. Pain control was obtained via multimodal approach. Bowel motivation addressed with scheduled and PRN medications. Early mobilization was initiated through PT services. Discharge arrangements made by a collaborative effort between the patient and Case Management. Follow-up is scheduled in 2-3 weeks. Discharge instructions given by orthopedic providers and nursing staff at discharge. Discharge condition was good. She is going to IRU at [facility] for continued rehab. Problems: (1) Degenerative arthritis of right knee Status: Chronic Assessment & Plan: Current anti-coagulation protocol for VTE prophylaxis. SCD's and early mobilization for added DVT coverage. BPs improved. Hospitalist consult noted. WBC elevation is likely a stress response. Pt is afebrile and has no S/SX of infection. Scopolamine patch for n/v. IRU consult in place. PT/OT services to improve independent function. Discharge Planning per Case Management. Ongoing Care Required?: No Laboratory Laboratory Tests Test 12/18/16 04:14 White Blood Count 11.2T/MM3 Red Blood Count 4.05M/MM3 Hemoglobin 11.7GM/DL Hematocrit 35.2% Mean Corpuscular Volume 86.9UM3 Mean Corpuscular Hemoglobin 28.9UUG Mean Corpuscular Hemoglobin Concent 33.2GM/DL RDW Standard Deviation 40.9FL Platelet Count 328T/MM3 Mean Platelet Volume 9.7UM3 Turbidity < 20 Sodium Level 145MEQ/L Potassium Level 3.6MEQ/L Chloride Level 104MEQ/L Carbon Dioxide Level 25MEQ/L Anion Gap 16MEQ/L Blood Urea Nitrogen 35.0MG/DL Creatinine 0.9MG/DL Glomerular Filtration Rate Calc 59 BUN/Creatinine Ratio 39RATIO Glucose Level 132MG/DL Calculated Osmolality 289MOSM/KG Calcium Level 9.0MG/DL Icterus Index < 2 Chemistry Specimen Hemolysis < 15 Home Meds Reported Medications Losartan Potassium (Cozaar) 50 Mg Tablet, 50 MG PO BID, TAB 1 TAB PO IN AM, AND 0.5 TAB IN PM 11/28/16 Levothyroxine Sodium (Levothyroxine Sodium) 50 Mcg Tablet, 50 MCG PO ACB, TAB Once daily before breakfast. 11/11/16 Fluticasone Propionate (Flonase Allergy Relief 50 mcg/actuation Nasal) 9.9 Ml [place].susp, 2 SPRAY EA NOSTRIL DAILY Y for ALLERY SYMPTOMS 11/11/16 Acetaminophen (Acetaminophen) 500 Mg Tablet, 2 TAB PO BID Y for PAIN, TAB Do not exceed 3,200 mg of acetaminophen in a 24 hours period. 11/11/16 Vit A/Vit C/Vit E/Zinc/Copper (Preservision Areds Tablet) 1 Each Tablet, 1 TAB PO DAILY 11/11/16 [place]-3 Fatty Acids/Fish Oil ([place] 3 1,000 mg Softgel) 1 Each Capsule, 2 CAP PO DAILY 11/11/16 Magnesium Oxide (Magnesium) 500 Mg Capsule, 500 MG PO DAILY, CAP ON FRI, FRI, Friday11/11/16 Furosemide (Lasix) 40 Mg Tablet, 0.5 TAB PO BID, TAB ONE HALF TABLET IN AM AND ONE HALF TABLET AT NOON 11/11/16 Carvedilol (Coreg) 25 Mg Tablet, 1 TAB PO BIDWM, TAB BEST WITH FOOD. 11/11/16 Clonidine HCl (Clonidine HCl) 0.1 Mg Tablet, 0.5 TAB PO BID, TAB 1 TAB IN AM AND 0.5 TAB PO IN PM 11/11/16 Calcium Carbonate/Vitamin D3 (Calcium 600 + Vit D 400 Caplet) 1 Each Tablet, 1 TAB PO DAILY 04/08/15 Aspirin (Aspirin) 81 Mg Tab.chew, 1 TAB PO WS, TAB 04/08/15 Multivitamin (Multivitamins) 1 Each Tablet, 1 TAB PO DAILY 04/08/15 Omeprazole (Omeprazole) 20 Mg Capsule.dr, 1 CAP PO ACB 04/08/15 Potassium Chloride (Klor-Con M10) 10 Meq Tablet, 2 TAB PO BID 04/08/15 Meclizine HCl (Meclizine HCl) 25 Mg Tablet, 1 TAB PO Q6HR Y for dizziness, TAB 04/08/15 Discharge Disposition IRU at [facility]. Estimated Blood Loss NICHOLE WEATHERS December 18, 2016 12:51
[2016-12-18] MEDS ORDERED: DOCU-168 PO (12:55)
[2016-12-18] MEDS ORDERED: MAGN400O4 PO (12:55)
[2016-12-18] MEDS ORDERED: POLY17PO18 PO (12:55)
[2016-12-18] MEDS ORDERED: TRAM50TA53 PO (12:55)
[2016-12-18] MEDS ORDERED: ASPI-917 PO (12:55)
[2016-12-18] MEDS ORDERED: ACET-2321 PO (12:55)
[2016-12-18 15:51] VITALS: BP 122/62; PULSE 82; RESP 18; TEMP 96.1; O2SAT 94
--- NOTE | 2016-12-18 16:11 | NUR ---
DISCHARGE PT DISCHARGED TO IRU. VS STABLE. TOLERATING REGULAR DIET WELL. REPORT CALLED TO RYANN NICHOLS. PACKET GIVEN TO RYANN NICHOLS., PT TRANSFERRED WITH WHEELCHAIR WITH NURSING STAFF. BELONGINGS SENT WITH PT.
[2016-12-19] MEDS ORDERED: MILK OF MAGNESIA 30 ML SUSP PO SCH (08:00)
[2016-12-19] MEDS ORDERED: BISACODYL 10 MG SUPPOSITORY RECTALLY SCH (20:00)
[2016-12-21] MEDS ORDERED: SCOPOLAMINE PATCH REMOVAL TD ONE (07:45)
== END 2016-12-18 16:00 | DRG 470 ==
LOC: SRG 07:59
PROVIDERS: ADMIT Orthopaedic Surgery; ATTEND Orthopaedic Surgery
PROC: 0SRC0J9 Replacement of Right Knee Joint with Synthetic Substitute, Cemented, Open Approach (ICD-10-PCS; principal; 2016-12-17 12:12)
DX: M17.0 Bilateral primary osteoarthritis of knee (principal); Z96.611 Presence of right artificial shoulder joint; I10 Essential (primary) hypertension; I50.9 Heart failure, unspecified; Z79.82 Long term (current) use of aspirin
CPT/HCPCS: 36415; 80048; 85025; 85027

== ENCOUNTER 2016-12-18 16:05 | Inpatient (IN) | payer MEDICARE, OTHER ==
[~2016-12-18] VITALS: Ht 157.5 cm; Wt 74.0 kg
[~2016-12-18 16:05] MED LIST changes: +ACET-2321 PO; -ACETAMINOPHEN 500 MG TABLET PO ONE; +ASPI-917 PO; -DEXAMETHASONE 4mg/ml - 1ml INJECTION IV ONE; +DOCU-168 PO; -FAMOTIDINE 20mg IVPB 50 ML IV ONE; -LIDOCAINE 1% (10mg/ml) 2ml SDV SQ ONE; -LR 1,000 ML IV SCH; +MAGN400O4 PO; -METOCLOPRAMIDE 10mg/2ml INJECTION IV ONE; -NOZIN NASAL SWAB NS ONE; -ONDANSETRON 4mg/2ml INJECTION IV ONE; +POLY17PO18 PO; +TRAM50TA53 PO
--- NOTE | 2016-12-18 16:05 | NUR ---
ADMISSION NOTE PT WAS ADMITTED TO IRU FROM [facility]. PT WAS BROUGHT VIA WHEELCHAIR, ACCOMPANIED BY DAUGHTER AND SON-IN-LAW. 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
[2016-12-18 16:11] VITALS: BP 135/71; PULSE 77; RESP 18; TEMP 97.1; O2SAT 95
--- OUTSIDE RECORDS SUMMARY | 2016-12-18 16:28 | XMS REPORT | Continuity of Care Document ---
Author Author [facility] Organization [facility] Address Unknown Phone Unavailable Support Name Relationship Address Phone WAYLON CROWDER MD Caregiver [address] [place] [address] Unavailable WAYLON CROWDER MD Caregiver [address] [place] [address] Unavailable VAUGHN OLMSTEAD Caregiver [address] [place] [address] Unavailable RAFI MENEZES Next Of Kin [address] [place] [phone] Insurance Providers Guarantor JwLan bucsh E Address [address], [place] [address] Email [email or web address] Payer Everence Policy Number [id number] Subscriber's Name Lan Menezes Relationship 18 Self Group Number [id number] Effective Date 00 Payer Medicare Policy Number [id number] Subscriber's Name Lan Menezes Relationship 18 Self Effective Date 94 Advance Directives Directive Response Recorded Date/Time Ordered Resuscitation Status Full Code 12/16/16 11:27am Resuscitation Documents on File No 12/17/16 9:06am DPOA for Healthcare Only No 12/17/16 5:14pm Living Will No 12/17/16 9:06am Advanced Directive or Resuscitation Comments PAMPHLET PROVIDED 12/17/16 9: 06am Advance Directive Consult Information Given 12/17/16 10:00am Problems Active Problems Medical Problem Onset Date Status Degenerative arthritis of right knee Unknown Chronic Diastolic CHF, chronic Unknown Chronic GERD (gastroesophageal reflux disease) Unknown Chronic Gout Unknown Chronic Hyperlipemia Unknown Chronic Hypernatremia Unknown Acute Hypertension Unknown Chronic Hypothyroidism Unknown Chronic Leukocytosis Unknown Acute Normocytic anemia Unknown Acute Obesity (BMI 30-39.9) Unknown Chronic Pulmonary HTN Unknown Chronic Past Problems Medical Problem Onset Date Dizziness Unknown Dizziness Unknown Dizziness Unknown Hypertension Unknown Hypertension Unknown Hypokalemia Unknown Medications Current Home Medications Medication Dose Units Route Directions Days Qty Instructions Start Date Acetaminophen (Tylenol) 325 Mg Tablet 650 Mg Oral Four Times Daily 50 Tablet 12/18/16 Aspirin (Aspirin Ec) 325 Mg Tablet. 325 Mg Oral Twice A Day 84 Tablet Take this for blood clot prevention for 6 weeks. 12/18/16 Calcium Carbonate/Vitamin D3 (Calcium 600 + Vit D 400 Caplet) 1 Each Tablet 1 Tab Oral Daily 04/08/15 Carvedilol (Coreg) 25 Mg Tablet 1 Tab Oral Twice Daily With Meals BEST WITH FOOD. 11/11/16 Clonidine Hcl 0.1 Mg Tablet 0.5 Tab Oral Twice A Day 1 TAB IN AM AND 0.5 TAB PO IN PM 11/11/16 Docusate Sodium (Colace) 100 Mg Capsule 100 Mg Oral Twice A Day 60 Capsule 12/18/16 Fluticasone Propionate (Flonase Allergy Relief 50 Mcg/Actuation Nasal) 9.9 Ml [place].susp 2 [place] Each Nostril Daily as needed for Allery Symptoms 11/11/16 Furosemide (Lasix) 40 Mg Tablet 0.5 Tab Oral Twice A Day ONE HALF TABLET IN AM AND ONE HALF TABLET AT NOON 11/11/16 Levothyroxine Sodium 50 Mcg Tablet 50 Mcg Oral Before Breakfast Once daily before breakfast. 11/11/16 Losartan Potassium (Cozaar) 50 Mg Tablet 50 Mg Oral Twice A Day 1 TAB PO IN AM, AND 0.5 TAB IN PM 11/28/16 Magnesium Hydroxide (Milk Of Magnesia) 400 Mg/5 Ml Oral.susp 30 Ml Oral 0800 30 Days 12/18/16 Magnesium Oxide (Magnesium) 500 Mg Capsule 500 Mg Oral Daily ON FRI , FRI, Friday11/11/16 Meclizine Hcl 25 Mg Tablet 1 Tab Oral Q6h/0300,0900,1500,2100 as needed for Dizziness 04/08/15 Multivitamin (Multivitamins) 1 Each Tablet 1 Tab Oral Daily 04/08 [place]-3 Fatty Acids/Fish Oil ([place] 3 1,000 Mg Softgel) 1 Each Capsule 2 Cap Oral Daily 11/11/16 Omeprazole 20 Mg Capsule. 1 Cap Oral Before Breakfast 04/08/15 Polyethylene Glycol 3350 (Healthylax) 17 Gm Powd.pack 17 G Oral Daily 30 Days 12/18/16 Potassium Chloride (Klor-Con M10) 10 Meq Tablet 2 Tab Oral Twice A Day 04/08/15 Tramadol Hcl (Ultram) 50 Mg Tablet 50-100 Mg Oral Every 6 Hours as needed for Pain 50 Tablet 12/18/16 Vit A/Vit C/Vit E/Zinc/Copper (Preservision Areds Tablet) 1 Each Tablet 1 Tab Oral Daily 11/11/16 Past Home Medications Medication Directions Ordered Status Acetaminophen 500 Mg Tablet, 2 Tab Oral Twice A Day as needed for Pain Discontinued Aspirin 81 Mg Tab.chew, 1 Tab Oral Give With Supper 04/08/15 Discontinued Social History Social History Problem Response Recorded Date/Time Onset Date Status Reason for Hospitalization TKA 12/18/2016 1:25pm Not Applicable Not Applicable Chewing Tobacco Status No 11/11/2016 3:04pm Not Applicable Not Applicable Hx Substance Use No 11/11/2016 3:04pm Not Applicable Not Applicable Hx Alcohol Use Y TWICE A YEAR 12/17/2016 9:27am Not Applicable Not Applicable Has the pt used tobacco in the last 12 months No 12/17/2016 9:27am Not Applicable Not Applicable Tobacco Usage none 01/30/2015 6:44am Not Applicable Not Applicable Query Response Start Date Stop Date Smoking Status Never smoker Hospital Discharge Instructions Instructions: Care Instructions: Reason for Hospitalization: TKA I was in the hospital because (patient own words): "FIX RIGHT KNEE" Discharge Diet: Resume normal diet as tolerated Discharge Activity: Continue the exercises you were given in the hospital three times a day. Your therapist will provide you with a home therapy program prior to your hospital discharge. As you feel stronger, increase the number of repetitions you do in each session. Please check with us before you swim, use a whirlpool, drive or ride a bicycle. Follow Up Appointments: Follow up as scheduled Pending Lab / Results: No Pending Lab Patient Instructions: Driving may be resumed once you are no longer taking narcotic medications and feel you can safely operate the vehicle. You may wish to practice in an empty parking lot at first. Keep in mind that your reaction time will be delayed for up to 6 weeks after surgery. Contact your surgeon for antibiotics to take before having dental work. Wound/Incision Care: In most cases, a Mepilex dressing will be placed at the time of surgery. This dressing will not need to be covered while showering. Leave dressing in place until your follow-up appointment as long as it remains clean, dry and stuck down well around the edges. Call your Doctor if you encounter a problem with your dressing. Please avoid submerging your incision until it is completely healed, once the Mepilex dressing is removed. This includes bathtubs, swimming pools, and hot tubs. DO NOT USE ALCOHOL, PEROXIDE, OR OINTMENTS of any kind on your incision. Pain Scale Utilized to Educate Patient: 0-10 Pain Scale Pain Management/Treatment: Ice packs may be used, and will also help with the pain. You will be given a prescription for pain. Expected Signs/Symptoms: Some swelling around the incision, as well as in your feet and legs is normal. To help with this, elevate your feet on a footstool when sitting in a chair, and do the ankle pumps and circles whenever you are sitting still. Muscle action helps to move collected fluid out of the tissues and improve circulation. Ice packs may be used, and will also help with the pain. Report any persistent swelling, calf tenderness, increase in pain, or pain in the calf with warmth, or redness to your doctor. Notify Physician If: Report any complications to my office immmediately. This includes excessive bleeding, wound breakdown, redness around the wound, uncontrolled pain, or fever over 101 on 3 different measurements. Eat a balanced diet and get plenty of rest. During Business Hours:: If you have any questions or concerns, please call during regular office hours ([phone]). After Business Hours:: If you have any problems or need to reach a physician after hours or on the weekend please call the hospital's main number [phone] to have your physician paged. Condition at time of discharge: Good Plan of Care Discharge Date 12/18/16 4:00pm Disposition 62 TO REHAB UNIT/FACILITY Instructions/Education Provided [facility] Postop Instructions NMJaspal Crowder General Instructions Prescriptions See Medication Section Additional Instructions/Education FOLLOWUP APT WITH DR CROWDER ON JANUARY 06 AT 9:45 AM Care Plan and Goals See Discharge Instructions Section Functional Status Query Response Date Recorded Mobility Status Ambulatory December 18, 2016 1:25pm Assistive Devices Four Wheeled Walker December 18, 2016 1:25pm Activity Limitations None December 18, 2016 1:25pm Feeding Ability Independent December 18, 2016 1:25pm Toileting Ability Independent December 17, 2016 2:43pm Grooming Ability Independent December 18, 2016 1:25pm Dressing Ability Independent December 18, 2016 1:25pm Driving Ability Independent December 18, 2016 1:25pm Housework Ability Independent December 18, 2016 1:25pm Meal Preparation Ability Independent December 18, 2016 1:25pm Stair Climbing Ability Independent December 18, 2016 1:25pm Ability to complete ADL's impeded by Impaired Mobility December 18, 2016 1:25pm Cognitive/Perceptual Impairments Impaired vision Impaired hearing December 18, 2016 1:25pm Visual Assistive Devices Glasses With patient December 17, 2016 2:43pm Hearing Assistive Devices Left hearing aid Right hearing aid December 17, 2016 2:43pm Allergies, Adverse Reactions, Alerts Allergen Type Severity Reaction Status Last Updated Codeine Adverse Reaction Intermediate HYPERACTIVE Active 12/17/16 Labetalol Allergy Unknown RASH Active 12/17/16 adhesive tape Adverse Reaction Intermediate RASH Active 12/17/16 Immunizations Query Response on File Recorded Date/Time Hx Influenza Vaccination Y fall 201512/17/16 9:27am Hx Pneumococcal Vaccination Yes 12/17/16 9:27am Hx Tetanus, Diptheria, Pertussis [place] 04/16/15 9:40pm Hx Influenza Vaccination Y fall 201512/17/16 9:27am Hx Tetanus Diptheria [place] 04/16/15 9:40pm Hx Tetanus, Diptheria, Pertussis [place] 04/16/15 9:40pm Vital Signs Acute Vital Signs Vital Response Date/Time Temperature (Fahrenheit) 96.1 deg F (96.8 - 99.1) 12/18/2016 3:51pm Temperature (Calculated Celsius) 35.30000 degrees C (36.0 - 37.3) 12/18/2016 3:51pm Temperature Source Oral 12/18/2016 3:51pm Pulse Rate (adult) 82 bpm (60 - 100) 12/18/2016 3:51pm Respiratory Rate 18 breaths/min (10 - 20) 12/18/2016 3:51pm O2 Sat by Pulse Oximetry 94 % (90 - 100) 12/18/2016 3:51pm Oxygen Delivery Method Room Air 12/18/2016 3:51pm Oxygen Delivery Method Nasal Cannula 12/17/2016 4:05pm Oxygen Flow Rate 0.50 L/min 12/18/2016 7:37am Blood Pressure 122/62 mm Hg 12/18/2016 3:51pm Blood Pressure Source Automatic Cuff 12/18/2016 12:04pm Height (Feet) 5 feet 12/18/2016 11:19am Height (Inches) 2.00 inches 12/18/2016 11:19am Weight (Kilograms) 76.700 kg 12/18/2016 7:44am Body Mass Index (BMI) 29.3 12/17/2016 8:30am Results Laboratory Results Test Name Result Units Flags Reference Collection Date/Time Result Date/ Time Comments White Blood Count 11.2 T/MM3 D H 4.5-11.0 12/18/2016 4:14am 12/18/2016 5: 29am Red Blood Count 4.05 M/MM3 4.00-5.20 12/18/2016 4:14am 12/18/2016 5: 29am Hemoglobin 11.7 GM/DL L 12-16 12/18/2016 4:1412/18/2016 5:29am Hematocrit 35.2 % L 36-46 12/18/2016 4:1412/18/2016 5:29am Mean Corpuscular Volume 86.9 UM3 80-100 12/18/2016 4:14am 12/18/2016 5: 29am Mean Corpuscular Hemoglobin 28.9 UUG 26-34 12/18/2016 4:142016 5:29am Mean Corpuscular Hemoglobin Concent 33.2 GM/DL 31-37 12/18/2016 4:1412/18/2016 5:29am RDW Standard Deviation 40.9 FL 36.9-50.2 12/18/2016 4:1412/18/2016 5 :29am Platelet Count 328 T/MM3 130-400 12/18/2016 4:1412/18/2016 5:29am Mean Platelet Volume 9.7 UM3 9.4-12.4 12/18/2016 4:1412/18/2016 5: 29am Neutrophils (%) (Auto) 49.8 % 33-66 12/17/2016 8:35am 12/17/2016 8: 42am Lymphocytes (%) (Auto) 35.2 % 23-45 12/17/2016 8:35am 12/17/2016 8: 42am Monocytes (%) (Auto) 8.8 % 0-9.0 12/17/2016 8:35am 12/17/2016 8:42am Eosinophils (%) (Auto) 5.3 % H 0-4 12/17/2016 8:35am 12/17/2016 8:42am Basophils (%) (Auto) 0.5 % 0-2 12/17/2016 8:3512/17/2016 8:42am Immature Granulocyte % (Auto) 0.4 % 0.0-0.5 12/17/2016 8:352016 8:42am Absolute Neutrophils (auto) 2.7 T/MM3 1.8-7.7 12/17/2016 8:35am 2016 8:42am Absolute Lymphocytes (auto) 1.9 T/MM3 1-4.8 12/17/2016 8:352016 8:42am Absolute Monocytes (auto) 0.5 T/MM3 0-0.8 12/17/2016 8:3512/17/2016 8:42am Absolute Eosinophils (auto) 0.3 T/MM3 0-0.5 12/17/2016 8:352016 8:42am Absolute Basophils (auto) 0.0 T/MM3 0-0.2 12/17/2016 8:3512/17/2016 8:42am Absolute Immature Granulocyte (auto 0.02 T/MM3 0.00-0.03 12/17/2016 8: 3512/17/2016 8:42am Icterus Index < 2 0-7 12/18/2016 4:12/18/2016 4:54am Chemistry Specimen Hemolysis < 15 0-25 12/18/2016 4:12/18/2016 4 :54am 0-25: Specimen Exhibited No Hemolysis. Turbidity < 20 0-20 12/18/2016 4:12/18/2016 4:54am Sodium Level 145 MEQ/L H 134-144 12/18/2016 4:12/18/2016 4:54am Potassium Level 3.6 MEQ/L D 3.6-5 12/18/2016 4:12/18/2016 5:28am Chloride Level 104 MEQ/L 98-107 12/18/2016 4:12/18/2016 4:54am Carbon Dioxide Level 25 MEQ/L 22-30 12/18/2016 4:12/18/2016 4: 54am Anion Gap 16 MEQ/L H 5-15 12/18/2016 4:14am 12/18/2016 4:54am Blood Urea Nitrogen 35.0 MG/DL H 7-17 12/18/2016 4:1412/18/2016 4: 54am Creatinine 0.9 MG/DL D 0.7-1.2 12/18/2016 4:14am 12/18/2016 5:28am BUN/Creatinine Ratio 39 RATIO H 6-26 12/18/2016 4:14am 12/18/2016 4: 54am Glomerular Filtration Rate Calc 59 12/18/2016 4:1412/18/2016 4: 54am Glucose Level 132 MG/DL H 65-110 12/18/2016 4:1412/18/2016 4:54am Calculated Osmolality 289 MOSM/KG H 261-280 12/18/2016 4:14am 2016 4:54am Calcium Level 9.0 MG/DL D 8.4-10.2 12/18/2016 4:14am 12/18/2016 5:28am Name: LAN MENEZES Unit #: [id number] : [id number] Sex: F Admit Date: 12/17/16 Loc / Svc: SRG Discharge Date: DIAGNOSTIC IMAGING REPORT Report #: [id number] [facility]SEF Indication: ITS.REASON: POSTOP right knee replacement PROCEDURE: KNEE RIGHT 2 VIEW: Encounter: Initial Comparison: None Findings: Postoperative changes of right total knee replacement are seen. There is expected postoperative subcutaneous gas. No evidence of hardware failure or acute fracture. No retained radiopaque surgical instruments or sponges. Overlying material causing artifact. Impression: New right total knee prosthesis without evidence of immediate complication. . Procedures Procedure Status Date Provider(s) Total replacement of right knee joint Completed 12/17/16 WAYLON CROWDER MD Encounters Encounter Location Arrival/Admit Date Discharge/Depart Date Attending Provider Admitted Inpatient [facility] 12/17/16 7:59am WAYLON CROWDER MD
[2016-12-18 16:48] VITALS: Ht 157.5 cm; Wt 74.0 kg
--- NOTE | 2016-12-18 17:35 | NUR ---
Call received from Gary KAY prior to patient arrival on unit. Advised that Scopolamine patch was applied today. Patient may wear patch through 12/20. Patch may be removed earlier if patient desires due to side effects. No new patch to be applied after that date. Pharmacy notified and will update medication list.
[2016-12-18] MEDS ORDERED: MECLIZINE 25 MG TABLET PO PRN (18:00)
[2016-12-18] MEDS ORDERED: FLUTICASONE NASAL SPRAY 50 MCG EA NOSTRIL PRN (18:00)
--- NOTE | 2016-12-18 18:58 | NUR ---
SHIFT SUMMARY PT HAS BEEN PLEASANT AND COOPERATIVE. PT ATE DINNER IN HER ROOM. PT IS UP WITH 1 FWW AND GAIT BELT, PT IS SLOW BUT IS ABLE TO AMBULATE TO BATHROOM. PT IS CURRENTLY RESTING IN RECLINER.
[2016-12-18] MEDS: TRAMADOL 50 MG TABLET PO PRN (19:31)
[2016-12-18] MEDS: ASPIRIN *EC* 325mg TABLET PO SCH (20:40)
[2016-12-18] MEDS: POTASSIUM CHLORIDE 10 MEQ TABLET PO SCH (20:41)
[2016-12-18] MEDS: DOCUSATE SODIUM 100 MG CAPSULE PO SCH (20:42)
[2016-12-18] MEDS: CLONIDINE 0.1 MG TABLET PO SCH (20:45)
[2016-12-18] MEDS: LOSARTAN 50 MG TABLET PO SCH (20:46)
[2016-12-18] MEDS: ACETAMINOPHEN 325 MG TABLET PO SCH (20:47)
[2016-12-18] MEDS ORDERED: DOCUSATE SODIUM 100 MG CAPSULE PO SCH (21:00)
[2016-12-18] MEDS ORDERED: FUROSEMIDE 40 MG TABLET PO SCH (21:00)
[2016-12-18 21:15] VITALS: BP 141/74; PULSE 89; RESP 18; TEMP 98.1; O2SAT 91
[2016-12-18 22:17] VITALS: PULSE 89; RESP 18
--- NOTE | 2016-12-19 02:10 | NUR ---
Status Patient has been alert and oriented times three, pleasant and cooperative. She is sleeping in her recliner with the chair alarm on, and reports that she sleeps in her recliner at home. She brushed her teeth and changed her upper half with set up only, but needed assist pulling down her shorts while she held on to the walker. She had a lot of pain upon standing, but this was much better when she sat back down. She had two Tramadols at the beginning of this shift. She is wearing her polar pack to her knees and SCDs to bilateral lower extremities. Addendum: 12/19/16 at 0619 by ROSIE FIORE RN Summary Patient continued to sleep well in chair. She got up to commode this morning and took maximum assist to pivot transfer. She was very unsteady and unable to stand and manage clothes. SCDs and Polar pack on.
[2016-12-19 04:57] LABS: BASOPHILS % (AUTO) 0.2 % (0-2); EOSINOPHILS % (AUTO) 0.2 % (0-4); HCT - HEMATOCRIT 31.8 % (36-46); HGB - HEMOGLOBIN 10.5 GM/DL (12-16); IMMATURE GRANULOCYTE # (AUTO) 0.02 T/MM3 (0.00-0.03); IMMATURE GRANULOCYTE % (AUTO) 0.2 % (0.0-0.5); LYMPHOCYTES # (AUTO) 1.7 T/MM3 (1-4.8); LYMPHOCYTES % (AUTO) 15.4 % (23-45); MEAN CORPUSCULAR VOLUME 87.8 UM3 (80-100); MEAN PLATELET VOLUME 9.7 UM3 (9.4-12.4); MONOCYTES # (AUTO) 1.2 T/MM3 (0-0.8); MONOCYTES % (AUTO) 10.8 % (0-9.0); NEUTROPHILS #(AUTO)-ABSOLUTE 8.1 T/MM3 (1.8-7.7); NEUTROPHILS % (AUTO) 73.2 % (33-66); RED BLOOD COUNT 3.62 M/MM3 (4.00-5.20)
[2016-12-19] MEDS: OMEPRAZOLE 20 MG CAPSULE PO SCH (05:12)
[2016-12-19] MEDS: LEVOTHYROXINE 50 MCG TABLET PO SCH (05:12)
[2016-12-19] MEDS: TRAMADOL 50 MG TABLET PO PRN ×3 (05:22→20:36)
[2016-12-19 05:48] LABS: ANION GAP 11 MEQ/L (5-15); BUN/CREATININE RATIO 32 RATIO (6-26); CALCIUM 9.3 MG/DL (8.4-10.2); CHLORIDE 102 MEQ/L (98-107); CO2 - CARBON DIOXIDE 25 MEQ/L (22-30); CREATININE 1.1 MG/DL (0.7-1.2); GLOMERULAR FILTRATION RATE 47; GLUCOSE 119 MG/DL (65-110); SODIUM 138 MEQ/L (134-144)
[2016-12-19] MEDS: LOSARTAN 50 MG TABLET PO SCH ×2 (08:26→20:34)
[2016-12-19] MEDS: ACETAMINOPHEN 325 MG TABLET PO SCH ×4 (08:26→21:00)
[2016-12-19] MEDS: MAGNESIUM OXIDE 400 MG TABLET PO SCH (08:27)
[2016-12-19] MEDS: CARVEDILOL 25 MG TABLET PO SCH ×2 (08:27→17:45)
[2016-12-19] MEDS: CLONIDINE 0.1 MG TABLET PO SCH ×2 (08:27→20:34)
[2016-12-19] MEDS: MILK OF MAGNESIA 30 ML SUSP PO SCH (08:28)
[2016-12-19] MEDS: ASPIRIN *EC* 325mg TABLET PO SCH ×2 (08:28→20:34)
[2016-12-19] MEDS: POLYETHYL.GLYCOL 3350 PACKET 17gm PO SCH (08:29)
[2016-12-19] MEDS: OMEGA-3 ACID ESTERS 1 G CAPSULE PO SCH (08:29)
[2016-12-19] MEDS: MULTIVIT + MINERALS (OPTI-GEN) PO SCH (08:29)
[2016-12-19] MEDS: MULTIVITAMIN + MINERAL TABLET PO SCH (08:29)
[2016-12-19 08:30] VITALS: BP 133/65; PULSE 88; RESP 16; TEMP 97.5; O2SAT 91
[2016-12-19] MEDS ORDERED: FUROSEMIDE 20 MG TABLET PO SCH (09:00)
[2016-12-19] MEDS: CALCIUM 600mg + VIT D 400 TABLET PO SCH (09:28)
[2016-12-19] MEDS: POTASSIUM CHLORIDE 10 MEQ TABLET PO SCH ×2 (09:28→17:44)
[2016-12-19] MEDS: DOCUSATE SODIUM 100 MG CAPSULE PO SCH ×2 (09:29→20:34)
[2016-12-19 09:46] VITALS: PULSE 88
[2016-12-19] MEDS ORDERED: FUROSEMIDE 40 MG/4 ML PO ONE (10:45)
[2016-12-19] MEDS ORDERED: ONDANSETRON ODT 4 MG TAB PO PRN (10:45)
--- NOTE | 2016-12-19 11:04 | CONSPD ---
MARIALUISA VALENCIA 12/19/16 1016: Consultation Info Date DATE: 12/19/16 TIME: 10:12 Date of Consultation: December 19, 2016 Attending Physician: Dr. Petersen Reason for Consultation: Medical management HPI - Adult Date DATE: 12/19/16 TIME: 10:12 General Chief Complaint: S/P right TKA; HTN History of Present Illness Alessandra Osorio is a pleasant 86-year-old female who underwent an elective right total knee arthroplasty on 12/17/[address] Crowder for end stage degenerative joint disease. She was admitted to IRU on 12/18/16 for continuation of her rehabilitation and strengthening. During her hospital admission following her surgery the hospitalist service was consulted for medical evaluation of acute postop hypertension in which her systolic pressures exceeded 200. She has a history of uncontrolled hypertension and is on multiple classes of antihypertensives including Coreg, Clonidine, Lasix and Cozaar. She sees Dr. Liu for cardiac care but reports that she is otherwise at her normal state of health. She denies any recent illness, fevers, chills, headaches, chest pain , shortness of breath, abdominal pain, nausea, vomiting or dysuria. She admits to a history of chronic constipation as well as urinary incontinence. No numbness, tingling or weakness. She states that her pain is fairly well controlled if she isn't moving, rating it 5/10 but states that her pain increases significantly with movement to 10/10 and causes her to become nauseous. Due to her nausea, she was started on a scopolamine patch which is to be discontinued on 12/20/16. Her appetite has been good and she denies any other concerns. Past Medical History Past Medical History Patient's Medical History: (1) Allergic rhinitis (2) Osteoarthritis (3) Incontinence (4) Constipation (5) History of skin cancer (6) Diastolic CHF, chronic (7) Hypertension (8) GERD (gastroesophageal reflux disease) (9) Obesity (BMI 30-39.9) (10) Hyperlipemia (11) Hypothyroidism (12) Pulmonary HTN Surgical History Patient's Surgical History: 05/09/15 Echo EF 63%, mild LVH, diastolic dysfunction, mild AV scl, tr AI/MR, thick MV, mod MAC, mild TR/PI, PAP 40 mmHg. 05/09/15 Holter - sinus, ST, rare PACs & PVCs. 05/04/15 Renal duplex normal. 04/26/15 Stress test Normal. Breast bx 1956 & 2000 - benign. 1969 Vaginal hysterectomy, cystocele/rectocele. MMK 1988. Rt shoulder hemiarthroplasty 2011. B/L cataracts. Left ear. Right TKA 2017. Current Medications Home Meds Active Scripts Docusate Sodium (Colace) 100 Mg Capsule, 100 MG PO BID, #60 CAP Prov:NICHOLE WEATHERS 12/18/16 Polyethylene Glycol 3350 (Healthylax) 17 Gm Powd.pack, 17 G PO DAILY for 30 Days Prov:NICHOLE WEATHERS 12/18/16 Magnesium Hydroxide (Milk of Magnesia) 400 Mg/5 Ml Oral.susp, 30 ML PO 0800 for 30 Days Prov:NICHOLE WEATHERS 12/18/16 Tramadol HCl (Ultram) 50 Mg Tablet, 50-100 MG PO Q6H Y for PAIN, #50 TAB Prov:NICHOLE WEATHERS 12/18/16 Aspirin *EC* (Aspirin EC) 325 Mg Tablet.dr, 325 MG PO BID, #84 TAB Take this for blood clot prevention for 6 weeks. Prov:NICHOLE WEATHERS 12/18/16 Acetaminophen (Tylenol) 325 Mg Tablet, 650 MG PO QID, #50 TAB Prov:NICHOLE WEATHERS 12/18/16 Reported Medications Losartan Potassium (Cozaar) 50 Mg Tablet, 50 MG PO BID, TAB 1 TAB PO IN AM, AND 0.5 TAB IN PM 11/28/16 Levothyroxine Sodium (Levothyroxine Sodium) 50 Mcg Tablet, 50 MCG PO ACB, TAB Once daily before breakfast. 11/11/16 Fluticasone Propionate (Flonase Allergy Relief 50 mcg/actuation Nasal) 9.9 Ml [place].susp, 2 SPRAY EA NOSTRIL DAILY Y for ALLERY SYMPTOMS 11/11/16 Vit A/Vit C/Vit E/Zinc/Copper (Preservision Areds Tablet) 1 Each Tablet, 1 TAB PO DAILY 11/11/16 [place]-3 Fatty Acids/Fish Oil ([place] 3 1,000 mg Softgel) 1 Each Capsule, 2 CAP PO DAILY 11/11/16 Magnesium Oxide (Magnesium) 500 Mg Capsule, 500 MG PO DAILY, CAP ON MON, WED, Friday11/11/16 Furosemide (Lasix) 40 Mg Tablet, 0.5 TAB PO BID, TAB ONE HALF TABLET IN AM AND ONE HALF TABLET AT NOON 11/11/16 Carvedilol (Coreg) 25 Mg Tablet, 1 TAB PO BIDWM, TAB BEST WITH FOOD. 11/11/16 Clonidine HCl (Clonidine HCl) 0.1 Mg Tablet, 0.5 TAB PO BID, TAB 1 TAB IN AM AND 0.5 TAB PO IN PM 11/11/16 Calcium Carbonate/Vitamin D3 (Calcium 600 + Vit D 400 Caplet) 1 Each Tablet, 1 TAB PO DAILY 04/08/15 Multivitamin (Multivitamins) 1 Each Tablet, 1 TAB PO DAILY 04/08/15 Omeprazole (Omeprazole) 20 Mg Capsule.dr, 1 CAP PO ACB 04/08/15 Potassium Chloride (Klor-Con M10) 10 Meq Tablet, 2 TAB PO BID 04/08/15 Meclizine HCl (Meclizine HCl) 25 Mg Tablet, 1 TAB PO Q6HR Y for dizziness, TAB 0300,0900,1500,2100 04/08/15 Discontinued Reported Medications Acetaminophen (Acetaminophen) 500 Mg Tablet, 2 TAB PO BID Y for PAIN, TAB Do not exceed 3,200 mg of acetaminophen in a 24 hours period. 11/11/16 Aspirin (Aspirin) 81 Mg Tab.chew, 1 TAB PO WS, TAB 04/08/15 Allergies: Coded Allergies: labetalol (Verified Allergy, Unknown, RASH, 12/18/16) adhesive tape (Verified Adverse Reaction, Intermediate, RASH, 12/18/16) codeine (Verified Adverse Reaction, Intermediate, HYPERACTIVE, 12/18/16) Family History Family History: Father - of aneurism at age 88 Mother - at age 86, unknown cause Sister - at age 65, heart disease and renal failure Social History Smoking Status: Never smoker Does patient use chewing tobac: No Second Hand Exposure: No Substance Use Type: does not use Alcohol Intake: none Marital Status: Sexuality: male partner Current Occupational Status: retired Advance Directives: No DPOA for Healthcare Only Social History Comments PCP - Dr. Nava. Cardio - Dr. Liu. Review of Systems Constitutional: DENIES: appetite decrease, chills, fatigue, fever, syncope, weakness Eyes General: DENIES: photophobia Vision: DENIES: blurring, double vision ENMT Hearing: REPORTS: hearing loss (left ear - chronic) Sinuses: NOT FOUND: congestion Nose: FOUND: allergies, NOT FOUND: nosebleeds Mouth/Throat: DENIES: change in swallowing, sore throat Cardiovascular DENIES: chest pain, dyspnea on exertion Rhythm/Rate: DENIES: irregular beat, palpitations, tachycardia Vascular: pedal edema, DENIES: pallor of an extremity, unilateral swelling Pulmonary Respiratory: DENIES: cough, dyspnea, pleuritic chest pain, sputum, tachypnea GI Upper Abdomen: DENIES: dysphagia, heartburn/indigestion, nausea, pain, vomiting Lower Abdomen: constipation, DENIES: diarrhea, pain General: incontinence, DENIES: burning, dysuria, frequency, pain, urgency Musculoskeletal General: joint pain (right knee), pain (right knee) Neurological General: DENIES: headache, memory disturbances, numbness, seizures, syncope Psychiatric Psychiatric: DENIES: anxiety, depression Hematologic/Lymphatic anemia All Other Systems All Other Systems: Reviewed (remainder of 10-point ROS Neg.) Physical Exam General General Nourishment: well nourished, well developed, obese, adult General Body Habitus: well groomed Vital Signs Vital Signs Date Time Temp Pulse Resp B/P Pulse Ox O2 Delivery O2 Flow Rate FiO2 12/19/16 09:46 88 12/19/16 08:30 97.5 16 133/65 91 Room Air Height (Feet): 5 Height (Inches): 2.00 Comments very pleasant Eyes Brief: FOUND: PERRL, NOT FOUND: scleral icterus ENMT Brief: FOUND: mucosa moist, normal dentition Neck Brief: FOUND: midline, NOT FOUND: nuchal rigidity, tracheal deviation Respiratory Brief: FOUND: equal bilaterally, symmetrical, NOT FOUND: wheezes Comments bibasilar crackles noted; no cough, wheezing or distress. Cardiovascular (brief) Cardiac Brief: FOUND: regular rate, regular rhythm, NOT FOUND: pedal edema Abdomen (brief) Abdominal Brief: FOUND: BS normo active x4, soft, NOT FOUND: distended, tender Lymphatic (brief) Lymphatic Brief: NOT FOUND: lymphedema Musculoskeletal (brief) Musculoskeletal Brief: NOT FOUND: deformity, loss of motion Comments limited ROM to right knee secondary to pain. N/V intact. 2+ pedal pulses bilaterally. Integumentary (brief) Integumentary Brief: FOUND: dry, pink, warm Comments right knee dressing clean, dry and intact. Neurologic (brief) Neurological Brief: NOT FOUND: facial droop Neurologic RN Documented GCS Eye Opening: Verbal: Motor: Total: Psychiatric (brief) FOUND: alert, attentive, oriented Psychiatric Attitude: FOUND: cooperative Laboratory Laboratory Tests Test 12/19/16 04:14 White Blood Count 11.0T/MM3 Red Blood Count 3.62M/MM3 Hemoglobin 10.5GM/DL Hematocrit 31.8% Mean Corpuscular Volume 87.8UM3 Mean Corpuscular Hemoglobin 29.0UUG Mean Corpuscular Hemoglobin Concent 33.0GM/DL RDW Standard Deviation 41.8FL Platelet Count 290T/MM3 Mean Platelet Volume 9.7UM3 Immature Granulocyte % (Auto) 0.2% Neutrophils (%) (Auto) 73.2% Lymphocytes (%) (Auto) 15.4% Monocytes (%) (Auto) 10.8% Eosinophils (%) (Auto) 0.2% Basophils (%) (Auto) 0.2% Absolute Immature Granulocyte (auto 0.02T/MM3 Absolute Neutrophils (auto) 8.1T/MM3 Absolute Lymphocytes (auto) 1.7T/MM3 Absolute Monocytes (auto) 1.2T/MM3 Absolute Eosinophils (auto) 0.0T/MM3 Absolute Basophils (auto) 0.0T/MM3 Turbidity < 20 Sodium Level 138MEQ/L Potassium Level 4.0MEQ/L Chloride Level 102MEQ/L Carbon Dioxide Level 25MEQ/L Anion Gap 11MEQ/L Blood Urea Nitrogen 35.0MG/DL Creatinine 1.1MG/DL Glomerular Filtration Rate Calc 47 BUN/Creatinine Ratio 32RATIO Glucose Level 119MG/DL Calculated Osmolality 275MOSM/KG Calcium Level 9.3MG/DL Icterus Index < 2 Chemistry Specimen Hemolysis < 15 Impression/Recommendation Problems: (1) Status post total right knee replacement Status: Acute Assessment & Plan: 12/17/[address] Crowder. (2) Normocytic anemia Status: Acute Assessment & Plan: most likely post-op related. stable at 10.5. (3) Pulmonary HTN Status: Chronic (4) Diastolic CHF, chronic Status: Chronic (5) Hypertension Status: Chronic Qualifiers: Hypertension type: essential hypertension Qualified Codes: I10 - Essential (primary) hypertension (6) Hyperlipemia Status: Chronic (7) Hypothyroidism Status: Chronic (8) GERD (gastroesophageal reflux disease) Status: Chronic Qualifiers: Esophagitis presence: esophagitis presence not specified Qualified Codes: K21.9 - Gastro-esophageal reflux disease without esophagitis (9) Osteoarthritis Status: Chronic Qualifiers: Osteoarthritis location: multiple joints Osteoarthritis type: primary Qualified Codes: M15.0 - Primary generalized (osteo)arthritis (10) Incontinence Status: Chronic (11) Constipation Status: Chronic Qualifiers: Constipation type: slow transit constipation Qualified Codes: K59.01 - Slow transit constipation (12) Allergic rhinitis Status: Chronic Qualifiers: Allergic rhinitis trigger: unspecified Allergic rhinitis seasonality: unspecified seasonality Qualified Codes: J30.9 - Allergic rhinitis, unspecified (13) Obesity (BMI 30-39.9) Status: Chronic Impression 86-year-old female admitted to IRU following right TKA on 12/17/[address] Crowder for continued rehab. Hospitalist consulted for medical management of hypertension and other chronic medical conditions. Fair pain control but continues to have severe pain with movement. Recommendation 12/19/16.MIRAKIAN: ADMIT. Agree with admission to IRU for continued rehabilitation for strengthening and improvement in functional ability. Therapy and pain medication orders per Dr. Balderas. Provide as safe and supportive environment. Encourage participation in therapies. Monitor blood pressure closely and continue home medications as directed. Normocytic anemia noted at 10.5 most likely related to recent surgery. Continue to monitor periodically with labs and monitor closely for signs of acute bleed as BUN remains elevated. Will recheck CBC and BMP on 12/20 for evaluation of blood counts, electrolytes and renal function. Nausea with severe pain - scopolamine patch placed and scheduled to be removed on 12/20. Will try and manage pain. Zofran as needed for additional nausea relief. History of constipation - encourage fiber rich foods (prunes) and bowel motivation with miralax, milk of magnesia and colace. Bibasilar crackles noted on exam - history of pulmonary hypertension and CHF; no signs of respiratory distress. Encourage incentive spirometry and monitor saturations closely. Will give an additional dose of Lasix 20mg po now and monitor closely. Monitor daily weights closely for signs of fluid overload. Upon discharge, patient's care will be returned to her PCP. CANDY PETERSEN MD 12/19/16 1450: Past Medical History Current Medications Home Meds Active Scripts Docusate Sodium (Colace) 100 Mg Capsule, 100 MG PO BID, #60 CAP Prov:NICHOLE WEATHERS 12/18/16 Polyethylene Glycol 3350 (Healthylax) 17 Gm Powd.pack, 17 G PO DAILY for 30 Days Prov:NICHOLE WEATHERS 12/18/16 Magnesium Hydroxide (Milk of Magnesia) 400 Mg/5 Ml Oral.susp, 30 ML PO 0800 for 30 Days Prov:NICHOLE WEATHERS 12/18/16 Tramadol HCl (Ultram) 50 Mg Tablet, 50-100 MG PO Q6H Y for PAIN, #50 TAB Prov:NICHOLE WEATHERS 12/18/16 Aspirin *EC* (Aspirin EC) 325 Mg Tablet.dr, 325 MG PO BID, #84 TAB Take this for blood clot prevention for 6 weeks. Prov:NICHOLE WEATHERS 12/18/16 Acetaminophen (Tylenol) 325 Mg Tablet, 650 MG PO QID, #50 TAB Prov:NICHOLE WEATHERS 12/18/16 Reported Medications Losartan Potassium (Cozaar) 50 Mg Tablet, 50 MG PO BID, TAB 1 TAB PO IN AM, AND 0.5 TAB IN PM 11/28/16 Levothyroxine Sodium (Levothyroxine Sodium) 50 Mcg Tablet, 50 MCG PO ACB, TAB Once daily before breakfast. 11/11/16 Fluticasone Propionate (Flonase Allergy Relief 50 mcg/actuation Nasal) 9.9 Ml [place].susp, 2 SPRAY EA NOSTRIL DAILY Y for ALLERY SYMPTOMS 11/11/16 Vit A/Vit C/Vit E/Zinc/Copper (Preservision Areds Tablet) 1 Each Tablet, 1 TAB PO DAILY 11/11/16 [place]-3 Fatty Acids/Fish Oil ([place] 3 1,000 mg Softgel) 1 Each Capsule, 2 CAP PO DAILY 11/11/16 Magnesium Oxide (Magnesium) 500 Mg Capsule, 500 MG PO DAILY, CAP ON MON, FRI, Friday11/11/16 Furosemide (Lasix) 40 Mg Tablet, 0.5 TAB PO BID, TAB ONE HALF TABLET IN AM AND ONE HALF TABLET AT NOON 11/11/16 Carvedilol (Coreg) 25 Mg Tablet, 1 TAB PO BIDWM, TAB BEST WITH FOOD. 11/11/16 Clonidine HCl (Clonidine HCl) 0.1 Mg Tablet, 0.5 TAB PO BID, TAB 1 TAB IN AM AND 0.5 TAB PO IN PM 11/11/16 Calcium Carbonate/Vitamin D3 (Calcium 600 + Vit D 400 Caplet) 1 Each Tablet, 1 TAB PO DAILY 04/08/15 Multivitamin (Multivitamins) 1 Each Tablet, 1 TAB PO DAILY 04/08/15 Omeprazole (Omeprazole) 20 Mg Capsule.dr, 1 CAP PO ACB 04/08/15 Potassium Chloride (Klor-Con M10) 10 Meq Tablet, 2 TAB PO BID 04/08/15 Meclizine HCl (Meclizine HCl) 25 Mg Tablet, 1 TAB PO Q6HR Y for dizziness, TAB 0300,0900,1500,2100 04/08/15 Discontinued Reported Medications Acetaminophen (Acetaminophen) 500 Mg Tablet, 2 TAB PO BID Y for PAIN, TAB Do not exceed 3,200 mg of acetaminophen in a 24 hours period. 11/11/16 Aspirin (Aspirin) 81 Mg Tab.chew, 1 TAB PO WS, TAB 04/08/15 Allergies: Coded Allergies: labetalol (Verified Allergy, Unknown, RASH, 12/18/16) adhesive tape (Verified Adverse Reaction, Intermediate, RASH, 12/18/16) codeine (Verified Adverse Reaction, Intermediate, HYPERACTIVE, 12/18/16) Impression/Recommendation Problems: (1) Status post total right knee replacement Status: Acute Assessment & Plan: 12/17/[address] Crowder. (2) Normocytic anemia Status: Acute Assessment & Plan: most likely post-op related. stable at 10.5. (3) Pulmonary HTN Status: Chronic (4) Diastolic CHF, chronic Status: Chronic (5) Hypertension Status: Chronic Qualifiers: Hypertension type: essential hypertension Qualified Codes: I10 - Essential (primary) hypertension (6) Hyperlipemia Status: Chronic (7) Hypothyroidism Status: Chronic (8) GERD (gastroesophageal reflux disease) Status: Chronic Qualifiers: Esophagitis presence: esophagitis presence not specified Qualified Codes: K21.9 - Gastro-esophageal reflux disease without esophagitis (9) Osteoarthritis Status: Chronic Qualifiers: Osteoarthritis location: multiple joints Osteoarthritis type: primary Qualified Codes: M15.0 - Primary generalized (osteo)arthritis (10) Incontinence Status: Chronic (11) Constipation Status: Chronic Qualifiers: Constipation type: slow transit constipation Qualified Codes: K59.01 - Slow transit constipation (12) Allergic rhinitis Status: Chronic Qualifiers: Allergic rhinitis trigger: unspecified Allergic rhinitis seasonality: unspecified seasonality Qualified Codes: J30.9 - Allergic rhinitis, unspecified (13) Obesity (BMI 30-39.9) Status: Chronic Recommendation Have independently interviewed and examined pt. Chart reviewed. Case discussed with my PA. Above care plan developed with my supervision; agree with above. Doing okay. Post op pain worse with movements, medications are helping discomfort. Tolerating pain medication well. Notes some nausea when pain severe. Appetite slightly decreased. Did have large stool today - 'a blow out.' Breathing well. No chest pain. Lungs: clear bilaterally CV: regular AB; soft nt/nd +BS MSE: awake alert appropriate Plan: Agree with admission of pt to IRU to maximize functional status. Continue with pain control. Encourage pulmonary toilet. Continue bowel motivation. Monitor hemoglobin due to post op anemia. Continue home medications. Continue SCD for DVT prevention. MARIALUISA VALENCIA December 19, 2016 10:16 CANDY PETERSEN MD December 19, 2016 14:50
--- NOTE | 2016-12-19 11:33 | NUR ---
DEMETRIS GARCIA IS 9. Addendum: 12/19/16 at 1133 by [address]A SH[address] SW Amended: Links added.
[2016-12-19] MEDS ORDERED: FUROSEMIDE 20 MG TABLET PO ONE (11:45)
--- NOTE | 2016-12-19 15:26 | HPPDOC ---
HPI Date DATE: 12/19/16 TIME: 15:18 General Chief Complaint: S/P right TKA; HTN History of Present Illness 86-year-old female admitted status post right total knee replacement. She is in need of strengthening due to the surgery and conditioning before hand. However she did have uncontrolled hypertension after her surgery was completed. She is requiring 4 different blood pressure medication and is still being adjusted by medical. She is not appropriate to be discharged due to the instability of her blood pressure. She is appropriate to be admitted to IRU for continued therapy and control blood pressure. Past Medical History Past Medical History Patient's Medical History: (1) Allergic rhinitis (2) Osteoarthritis (3) Incontinence (4) Constipation (5) History of skin cancer (6) Diastolic CHF, chronic (7) Hypertension (8) GERD (gastroesophageal reflux disease) (9) Obesity (BMI 30-39.9) (10) Hyperlipemia (11) Hypothyroidism (12) Pulmonary HTN Surgical History Patient's Surgical History: 05/09/15 Echo EF 63%, mild LVH, diastolic dysfunction, mild AV scl, tr AI/MR, thick MV, mod MAC, mild TR/PI, PAP 40 mmHg. 05/09/15 Holter - sinus, ST, rare PACs & PVCs. 05/04/15 Renal duplex normal. 04/26/15 Stress test Normal. Breast bx 1956 & 2000 - benign. 1968 Vaginal hysterectomy, cystocele/rectocele. MMK 1988. Rt shoulder hemiarthroplasty 2011. B/L cataracts. Left ear. Right TKA 2017. Current Medications Home Meds Active Scripts Docusate Sodium (Colace) 100 Mg Capsule, 100 MG PO BID, #60 CAP Prov:NICHOLE WEATHERS 12/18/16 Polyethylene Glycol 3350 (Healthylax) 17 Gm Powd.pack, 17 G PO DAILY for 30 Days Prov:NICHOLE WEATHERS 12/18/16 Magnesium Hydroxide (Milk of Magnesia) 400 Mg/5 Ml Oral.susp, 30 ML PO 0800 for 30 Days Prov:NICHOLE WEATHERS 12/18/16 Tramadol HCl (Ultram) 50 Mg Tablet, 50-100 MG PO Q6H Y for PAIN, #50 TAB Prov:NICHOLE WAETHERS 12/18/16 Aspirin *EC* (Aspirin EC) 325 Mg Tablet.dr, 325 MG PO BID, #84 TAB Take this for blood clot prevention for 6 weeks. Prov:NICHOLE WEATHERS 12/18/16 Acetaminophen (Tylenol) 325 Mg Tablet, 650 MG PO QID, #50 TAB Prov:NICHOLE WEATHERS 12/18/16 Reported Medications Losartan Potassium (Cozaar) 50 Mg Tablet, 50 MG PO BID, TAB 1 TAB PO IN AM, AND 0.5 TAB IN PM 11/28/16 Levothyroxine Sodium (Levothyroxine Sodium) 50 Mcg Tablet, 50 MCG PO ACB, TAB Once daily before breakfast. 11/11/16 Fluticasone Propionate (Flonase Allergy Relief 50 mcg/actuation Nasal) 9.9 Ml [place].susp, 2 SPRAY EA NOSTRIL DAILY Y for ALLERY SYMPTOMS 11/11/16 Vit A/Vit C/Vit E/Zinc/Copper (Preservision Areds Tablet) 1 Each Tablet, 1 TAB PO DAILY 11/11/16 [place]-3 Fatty Acids/Fish Oil ([place] 3 1,000 mg Softgel) 1 Each Capsule, 2 CAP PO DAILY 11/11/16 Magnesium Oxide (Magnesium) 500 Mg Capsule, 500 MG PO DAILY, CAP ON FRI, FRI, Friday11/11/16 Furosemide (Lasix) 40 Mg Tablet, 0.5 TAB PO BID, TAB ONE HALF TABLET IN AM AND ONE HALF TABLET AT NOON 11/11/16 Carvedilol (Coreg) 25 Mg Tablet, 1 TAB PO BIDWM, TAB BEST WITH FOOD. 11/11/16 Clonidine HCl (Clonidine HCl) 0.1 Mg Tablet, 0.5 TAB PO BID, TAB 1 TAB IN AM AND 0.5 TAB PO IN PM 11/11/16 Calcium Carbonate/Vitamin D3 (Calcium 600 + Vit D 400 Caplet) 1 Each Tablet, 1 TAB PO DAILY 04/08/15 Multivitamin (Multivitamins) 1 Each Tablet, 1 TAB PO DAILY 04/08/15 Omeprazole (Omeprazole) 20 Mg Capsule.dr, 1 CAP PO ACB 04/08/15 Potassium Chloride (Klor-Con M10) 10 Meq Tablet, 2 TAB PO BID 04/08/15 Meclizine HCl (Meclizine HCl) 25 Mg Tablet, 1 TAB PO Q6HR Y for dizziness, TAB 0300,0900,1500,2100 04/08/15 Discontinued Reported Medications Acetaminophen (Acetaminophen) 500 Mg Tablet, 2 TAB PO BID Y for PAIN, TAB Do not exceed 3,200 mg of acetaminophen in a 24 hours period. 11/11/16 Aspirin (Aspirin) 81 Mg Tab.chew, 1 TAB PO WS, TAB 04/08/15 Allergies: Coded Allergies: labetalol (Verified Allergy, Unknown, RASH, 12/18/16) adhesive tape (Verified Adverse Reaction, Intermediate, RASH, 12/18/16) codeine (Verified Adverse Reaction, Intermediate, HYPERACTIVE, 12/18/16) Family History Family History: Father - of aneurism at age 88 Mother - at age 86, unknown cause Sister - at age 65, heart disease and renal failure Social History Smoking Status: Never smoker Does patient use chewing tobac: No Second Hand Exposure: No Substance Use Type: does not use Alcohol Intake: none Marital Status: Sexuality: male partner Current Occupational Status: retired Advance Directives: No DPOA for Healthcare Only Review of Systems Musculoskeletal General: see HPI All Other Systems All Other Systems: Reviewed Physical Exam General General Nourishment: well nourished, well developed General Body Habitus: well groomed Vital Signs Vital Signs Date Time Temp Pulse Resp B/P Pulse Ox O2 Delivery O2 Flow Rate FiO2 12/19/16 09:46 88 12/19/16 08:30 97.5 16 133/65 91 Room Air Height (Feet): 5 Height (Inches): 2.00 Eyes Brief: FOUND: EOMI, PERRL ENMT Brief: FOUND: TM clear, TM good light reflex Neck Brief: NOT FOUND: adenopathy, spasm, thyromegaly Respiratory Brief: FOUND: clear all [place], equal bilaterally, NOT FOUND: rales , wheezes Cardiovascular (brief) Cardiac Brief: FOUND: regular rate, regular rhythm Abdomen (brief) Abdominal Brief: FOUND: BS normo active x4, soft, tender Neurologic (brief) Neurological Brief: FOUND: cranial 2-12 intact, motor, sensory Neurologic RN Documented GCS Eye Opening: Verbal: Motor: Total: Psychiatric (brief) FOUND: alert, normal affect, oriented Laboratory Laboratory Tests Test 12/19/16 04:14 White Blood Count 11.0T/MM3 Red Blood Count 3.62M/MM3 Hemoglobin 10.5GM/DL Hematocrit 31.8% Mean Corpuscular Volume 87.8UM3 Mean Corpuscular Hemoglobin 29.0UUG Mean Corpuscular Hemoglobin Concent 33.0GM/DL RDW Standard Deviation 41.8FL Platelet Count 290T/MM3 Mean Platelet Volume 9.7UM3 Immature Granulocyte % (Auto) 0.2% Neutrophils (%) (Auto) 73.2% Lymphocytes (%) (Auto) 15.4% Monocytes (%) (Auto) 10.8% Eosinophils (%) (Auto) 0.2% Basophils (%) (Auto) 0.2% Absolute Immature Granulocyte (auto 0.02T/MM3 Absolute Neutrophils (auto) 8.1T/MM3 Absolute Lymphocytes (auto) 1.7T/MM3 Absolute Monocytes (auto) 1.2T/MM3 Absolute Eosinophils (auto) 0.0T/MM3 Absolute Basophils (auto) 0.0T/MM3 Turbidity < 20 Sodium Level 138MEQ/L Potassium Level 4.0MEQ/L Chloride Level 102MEQ/L Carbon Dioxide Level 25MEQ/L Anion Gap 11MEQ/L Blood Urea Nitrogen 35.0MG/DL Creatinine 1.1MG/DL Glomerular Filtration Rate Calc 47 BUN/Creatinine Ratio 32RATIO Glucose Level 119MG/DL Calculated Osmolality 275MOSM/KG Calcium Level 9.3MG/DL Icterus Index < 2 Chemistry Specimen Hemolysis < 15 Assessment & Plan Problems: (1) Hypertension Status: Chronic Qualifiers: Hypertension type: essential hypertension Qualified Codes: I10 - Essential (primary) hypertension Assessment & Plan: Medical to manage. Patient has been uncontrolled and is currently on 4 blood pressure medications. (2) Status post total right knee replacement Status: Acute Assessment & Plan: Physical therapy and occupational therapy are consulted. (3) Hypernatremia Status: Acute Assessment & Plan: Medical to manage. DVT Prophylaxis: SCD'S Code Status Full Code Interventions to Obtain Goals PT Treatment Plan: Therapeutic Exercise, Gait Training, Functional Activities , Patient/Family Education OT Treatment Plan: ADL's (basic care), Ther. Exercise for ADL's, UE Functional Training, Balance Training, Pt./Family Education, IADL's Hospital Course Summary Disclaimer The hospital course summary below is not to be considered part of the above Progress Note. ANITA LEE MD December 19, 2016 15:22
--- NOTE | 2016-12-19 15:28 | IRU24PDOC ---
24 Hour Post Admission Eval Relevant Changes Relevant Changes: No I have reviewed the patient's information and concur with the finding and results of the pre-admission screen. Certification I certify the patient for rehabilitation. Patient Condition Prior Medical Conditions: (1) Hypertension Status: Chronic Additional Information: Medical to manage. Patient has been uncontrolled and is currently on 4 blood pressure medications. (2) Status post total right knee replacement Status: Acute Additional Information: Physical therapy and occupational therapy are consulted. (3) Hypernatremia Status: Acute Additional Information: Medical to manage. Current Medical Conditions: (1) Hypertension Status: Chronic Additional Information: Medical to manage. Patient has been uncontrolled and is currently on 4 blood pressure medications. (2) Status post total right knee replacement Status: Acute Additional Information: Physical therapy and occupational therapy are consulted. (3) Hypernatremia Status: Acute Additional Information: Medical to manage. Prior Functional Condition Lives With: Spouse Residence Type: Private home/apartment Assistive Devices: Straight Cane, 4-Wheeled Walker Prior Functional Status: Indep. at home or school Current Functional Status Patient Requirements * Patient has been determined to have significant functional limitations requiring at least two therapy disciplines. * Rehabilitation medical practitioner will provide admission approval, assessment and oversight and program coordination at least daily. * Intensive rehabilitative nursing services on site and available 24 hours a day. * The treatment plan will be developed within 24 hours of admission. * Interdisciplinary and goal oriented treatment by professional nursing, social insurance analyst, and rehabilitation therapist. * Interdisciplinary team meeting weekly inclusive of ongoing comprehensive discharge planning. First team meeting by day seven. Weekly meetings to follow. * Rehab Physician is the team meeting leader. * Pharmacy and diagnostic services will be available. * Ongoing comprehensive rehab program with at least 2 disciplines and greater than or equal to 3 hours a day, 5 days a week. Physical Therapy Minutes: 90 Occupational Therapy Minutes: 90 Therapy The patient is to receive therapy at least 5 days a week. Current Functional Status: Using assistive device PT Treatment Plan: Therapeutic Exercise, Gait Training, Functional Activities , Patient/Family Education Treatment Plan Frequency: five times per week Treatment Plan Duration: two weeks Plan of Care Comment: 6x/week x 1 week, then 5x/week x 2 weeks OT Treatment Plan: ADL's (basic care), Ther. Exercise for ADL's, UE Functional Training, Balance Training, Pt./Family Education, IADL's OT Treatment Plan Frequency: five times per week OT Treatment Plan Duration: three weeks ROM Deficit: Right Upper Extremity, Right Lower Extremity ROM Comment: limited R knee range with -10 and 75 knee flexion. Muscle Weakness Location: Right Lower Extremity Complication/Comorbidities Patient Complication Risk: (1) Hypertension Status: Chronic Comments: Medical to manage. Patient has been uncontrolled and is currently on 4 blood pressure medications. (2) Status post total right knee replacement Status: Acute Comments: Physical therapy and occupational therapy are consulted. (3) Hypernatremia Status: Acute Comments: Medical to manage. Impact on Functional Outcomes Delayed healing and strengthening Barriers to Discharge: weakness, endurance, balance Plan to Avoid Complications Plan to Avoid Complications The patient cannot receive this care in a lesser intensive setting such as [facility] or Outpatient Therapy due to the patient requiring the following uncontrolled hypertension. The patient requires oversight by a rehabilitation physician to manage their rehabilitation treatment plan and the multidisciplinary approach to care that can only be provided in an IRF and requires a multidisciplinary approach to care , provided by professional PTs, OTs, STs, dieticians, RTs, rehabilitation nurses and is not available in lesser levels of care. The frequency and duration for therapy, as recommended by the professional Rehabilitation therapists, meet the patient's initial rehabilitation treatment plan needs and will be further evaluated on a weekly basis for progress and/or changes needed. Problem Qualifiers (1) Hypertension: Hypertension type: essential hypertension Qualified Codes: I10 - Essential ( primary) hypertension ANITA LEE MD December 19, 2016 15:28
[2016-12-19 16:13] VITALS: BP 111/59; PULSE 70; RESP 18; TEMP 98; O2SAT 94
--- NOTE | 2016-12-19 16:57 | NUR ---
CM THIS WORKER SPOKE WITH PT AND SPOUSE. INTRODUCED SELF, EXPLAINED ROLE, PROVIDED CONTACT INFO. PT AND SPOUSE SAID [place] L[place], AND PT'S DC PLAN IS TO RETURN HOME. SPOUSE SAID HE TRAVELS FOR WORK, SO PT WILL NEED TO BE ABLE TO BE FAIRLY INDEPENDENT. THEY HAD NO QUESTIONS/NEEDS FOR THIS WORKER. Addendum: 12/19/16 at 1659 by SARANYA KENNEDY Amended: Links added.
[2016-12-19] MEDS: FUROSEMIDE 20 MG TABLET PO SCH (17:45)
--- NOTE | 2016-12-19 18:09 | NUR ---
SHIFT SUMMARY PT HAS BEEN PLEASANT AND COOPERATIVE. HAS BEEN OUT TO DINING ROOM FOR MEALS, EXCEPT FOR DINNER DUE TO STORM WATCH. PT REQUIRES OCCASIONAL CUEING TO KEEP HANDS ON WALKER UNTIL LINED UP WITH TOILET OR CHAIR. PT HAS WORKED WITH THERAPY. CURRENTLY RESTING IN RECLINER.
[2016-12-19 19:53] VITALS: BP 111/57; PULSE 64; RESP 16; TEMP 98.2; O2SAT 92
[2016-12-19 22:32] VITALS: PULSE 64; RESP 16
--- NOTE | 2016-12-19 23:50 | NUR ---
Chart Check 24 hour chart check completed
--- NOTE | 2016-12-20 02:29 | NUR ---
Status Patient is alert and oriented times three, pleasant and cooperative. She ambulated very slowly with FWW and steadying assist from bathroom to chair on this shift. Then at 0231 patient pivoted from chair to commode with two person assist and total assist hygiene and clothing management. She just doesn't seem to do as well after a long sleep. She reports she has been sleeping very well. She is sleeping in her recliner with SCDs on, polar pack to right knee and chair alarm on.
[2016-12-20 05:28] LABS: BASOPHILS % (AUTO) 0.2 % (0-2); EOSINOPHILS # (AUTO) 0.1 T/MM3 (0-0.5); EOSINOPHILS % (AUTO) 1.2 % (0-4); HCT - HEMATOCRIT 31.9 % (36-46); HGB - HEMOGLOBIN 10.5 GM/DL (12-16); IMMATURE GRANULOCYTE # (AUTO) 0.03 T/MM3 (0.00-0.03); IMMATURE GRANULOCYTE % (AUTO) 0.3 % (0.0-0.5); LYMPHOCYTES # (AUTO) 1.6 T/MM3 (1-4.8); LYMPHOCYTES % (AUTO) 15.1 % (23-45); MEAN CORPUSCULAR HGB 29.4 UUG (26-34); MEAN CORPUSCULAR HGB CONC(MCHC 32.9 GM/DL (31-37); MEAN CORPUSCULAR VOLUME 89.4 UM3 (80-100); MEAN PLATELET VOLUME 9.8 UM3 (9.4-12.4); MONOCYTES # (AUTO) 1.6 T/MM3 (0-0.8); MONOCYTES % (AUTO) 14.8 % (0-9.0); NEUTROPHILS #(AUTO)-ABSOLUTE 7.4 T/MM3 (1.8-7.7); NEUTROPHILS % (AUTO) 68.4 % (33-66); RED BLOOD COUNT 3.57 M/MM3 (4.00-5.20); WBC - WHITE BLOOD COUNT 10.7 T/MM3 (4.5-11.0)
[2016-12-20 05:42] LABS: ANION GAP 11 MEQ/L (5-15); BUN/CREATININE RATIO 33 RATIO (6-26); CALCIUM 9.3 MG/DL (8.4-10.2); CHLORIDE 99 MEQ/L (98-107); CO2 - CARBON DIOXIDE 28 MEQ/L (22-30); CREATININE 1.4 MG/DL (0.7-1.2); GLOMERULAR FILTRATION RATE 36; GLUCOSE 119 MG/DL (65-110); POTASSIUM 4.9 MEQ/L (3.6-5); SODIUM 138 MEQ/L (134-144)
[2016-12-20] MEDS: LEVOTHYROXINE 50 MCG TABLET PO SCH (06:47)
[2016-12-20] MEDS: OMEPRAZOLE 20 MG CAPSULE PO SCH (06:47)
--- NOTE | 2016-12-20 07:47 | NUR ---
Summary Patient up to restroom once during the rest of this shift. She transfers to a comode during the night and reports this is what she did at home, but she has a difficult time doing it, needing a lot of direction, especially on hand placement and safety. It takes her a very long time and we used two assist for this. She does much better during the day. No other issues the rest of the night.
[2016-12-20] MEDS: MILK OF MAGNESIA 30 ML SUSP PO SCH (08:00)
[2016-12-20 08:08] VITALS: BP 125/66; PULSE 75; RESP 16; TEMP 98.8; O2SAT 95
[2016-12-20] MEDS: DOCUSATE SODIUM 100 MG CAPSULE PO SCH ×2 (08:10→21:00)
[2016-12-20] MEDS: POLYETHYL.GLYCOL 3350 PACKET 17gm PO SCH (08:10)
[2016-12-20] MEDS: MULTIVITAMIN + MINERAL TABLET PO SCH (08:12)
[2016-12-20] MEDS: ASPIRIN *EC* 325mg TABLET PO SCH ×2 (08:12→21:59)
[2016-12-20] MEDS: CALCIUM 600mg + VIT D 400 TABLET PO SCH (08:12)
[2016-12-20] MEDS: OMEGA-3 ACID ESTERS 1 G CAPSULE PO SCH (08:12)
[2016-12-20] MEDS: FUROSEMIDE 20 MG TABLET PO SCH ×2 (08:13→17:00)
[2016-12-20] MEDS: CARVEDILOL 25 MG TABLET PO SCH ×2 (08:13→19:15)
[2016-12-20] MEDS: LOSARTAN 50 MG TABLET PO SCH ×2 (08:13→21:59)
[2016-12-20] MEDS: MULTIVIT + MINERALS (OPTI-GEN) PO SCH (08:13)
[2016-12-20] MEDS: POTASSIUM CHLORIDE 10 MEQ TABLET PO SCH (08:14)
[2016-12-20] MEDS: CLONIDINE 0.1 MG TABLET PO SCH ×2 (08:15→21:58)
[2016-12-20] MEDS: ACETAMINOPHEN 325 MG TABLET PO SCH ×4 (09:46→21:00)
[2016-12-20] MEDS: TRAMADOL 50 MG TABLET PO PRN (12:18)
[2016-12-20 16:00] VITALS: BP 130/66; PULSE 80; RESP 16; TEMP 97.7; O2SAT 95
--- NOTE | 2016-12-20 18:44 | NUR ---
SUMMARY Patient transferred with the assist of 2 and walker today. She is incontinent of urine at times due to urgency. Did use the bathroom 2x without incident. She rates her pain 8-10 during activity. Received her scheduled tyenol with breakfast. Tramadol 2 tabs for total of 100mg given with her lunch. Patient sleeping at 1345 with next scheduled tylenol ti be given they were held due to patient sleeping in her chair. She states that the Tramadol was very helpful with her activity when assisted to wheel chair for supper. Polar pack intact to her right knee when in her room sitting in her wheel chair or lying in bed. She has good sensation in her right toes and denies numbness. Dressing is dry and intact.
[2016-12-20 20:12] VITALS: BP 141/76; PULSE 75; RESP 18; TEMP 98.3; O2SAT 97
[2016-12-20 22:00] VITALS: PULSE 75; RESP 18
--- NOTE | 2016-12-21 04:02 | NUR ---
Chart Check 24 hour chart check completed
[2016-12-21] MEDS: LEVOTHYROXINE 50 MCG TABLET PO SCH (05:24)
[2016-12-21] MEDS: OMEPRAZOLE 20 MG CAPSULE PO SCH (05:24)
[2016-12-21] MEDS: TRAMADOL 50 MG TABLET PO PRN ×2 (05:24→21:24)
[2016-12-21 07:30] VITALS: PULSE 73; RESP 18
[2016-12-21] MEDS ORDERED: SCOPOLAMINE PATCH REMOVAL TD SCH (07:45)
[2016-12-21 08:00] VITALS: BP 149/67; PULSE 73; RESP 18; TEMP 98.3; O2SAT 95
[2016-12-21] MEDS: MILK OF MAGNESIA 30 ML SUSP PO SCH (08:00)
--- NOTE | 2016-12-21 08:46 | NUR ---
Summary Alessandra is a pleasant and cooperative patient.She is alert and oriented x three.She was medicated with Ultram 100 mg x one for report of pain .She has a polar pack that was placed to her right knee for a period in the evening.The mepilex to her right knee is intact. She wore her SCD's bilaterally through the night.She slept most of the night in her recliner per her request then moved to the bed for her daily weight and decided to stay for the morning.She is a stand and pivot to the bedside commode for voiding with assist of two staff. Hygiene per self.She is incontinent of bladder with the need of staff to manage her clothes.Appropriate use of call light.SR up x two when in bed and bed alarms engaged.
[2016-12-21] MEDS: DOCUSATE SODIUM 100 MG CAPSULE PO SCH ×2 (09:00→21:23)
[2016-12-21] MEDS: ASPIRIN *EC* 325mg TABLET PO SCH ×2 (09:00→21:23)
[2016-12-21] MEDS: FUROSEMIDE 20 MG TABLET PO SCH ×2 (09:00→17:00)
[2016-12-21] MEDS: OMEGA-3 ACID ESTERS 1 G CAPSULE PO SCH (09:00)
[2016-12-21] MEDS: POLYETHYL.GLYCOL 3350 PACKET 17gm PO SCH (09:00)
[2016-12-21] MEDS: LOSARTAN 50 MG TABLET PO SCH ×2 (09:00→21:22)
[2016-12-21] MEDS: MULTIVITAMIN + MINERAL TABLET PO SCH (09:00)
[2016-12-21] MEDS: CARVEDILOL 25 MG TABLET PO SCH ×2 (09:01→17:26)
[2016-12-21] MEDS: MAGNESIUM OXIDE 400 MG TABLET PO SCH (09:01)
[2016-12-21] MEDS: CALCIUM 600mg + VIT D 400 TABLET PO SCH (09:01)
[2016-12-21] MEDS: CLONIDINE 0.1 MG TABLET PO SCH ×2 (09:01→21:22)
[2016-12-21] MEDS: MULTIVIT + MINERALS (OPTI-GEN) PO SCH (09:01)
[2016-12-21] MEDS: ACETAMINOPHEN 325 MG TABLET PO SCH ×4 (09:02→21:00)
--- NOTE | 2016-12-21 13:22 | PDIRUOPC ---
Overall Plan of Care Date DATE: 12/21/16 TIME: 13:17 Relevant Changes Relevant Changes: No I have reviewed the patient's information and concur with the finding and results of the pre-admission screen. Certification I certify the patient for rehabilitation. Patient Impairments Prior Medical Conditions: (1) Hypertension Status: Chronic Additional Information: Medical to manage. Patient has been uncontrolled and is currently on 4 blood pressure medications. (2) Status post total right knee replacement Status: Acute Additional Information: Physical therapy and occupational therapy are consulted. (3) Hypernatremia Status: Acute Additional Information: Medical to manage. Current Medical Conditions: (1) Hypertension Status: Chronic Additional Information: Medical to manage. Patient has been uncontrolled and is currently on 4 blood pressure medications. (2) Status post total right knee replacement Status: Acute Additional Information: Physical therapy and occupational therapy are consulted. (3) Hypernatremia Status: Acute Additional Information: Medical to manage. Medical Prognosis Fair IRF Tx That Should Address Dx: (1) Status post total right knee replacement Dx Requiring Medical FU: (1) Hypernatremia (2) Hypertension Vital Signs Vital Signs Date Time Temp Pulse Resp B/P Pulse Ox O2 Delivery O2 Flow Rate FiO2 12/21/16 08:00 98.3 73 18 149/67 95 Room Air Laboratory Laboratory Tests Test 12/20/16 04:49 White Blood Count 10.7T/MM3 Red Blood Count 3.57M/MM3 Hemoglobin 10.5GM/DL Hematocrit 31.9% Mean Corpuscular Volume 89.4UM3 Mean Corpuscular Hemoglobin 29.4UUG Mean Corpuscular Hemoglobin Concent 32.9GM/DL RDW Standard Deviation 42.6FL Platelet Count 282T/MM3 Mean Platelet Volume 9.8UM3 Immature Granulocyte % (Auto) 0.3% Neutrophils (%) (Auto) 68.4% Lymphocytes (%) (Auto) 15.1% Monocytes (%) (Auto) 14.8% Eosinophils (%) (Auto) 1.2% Basophils (%) (Auto) 0.2% Absolute Immature Granulocyte (auto 0.03T/MM3 Absolute Neutrophils (auto) 7.4T/MM3 Absolute Lymphocytes (auto) 1.6T/MM3 Absolute Monocytes (auto) 1.6T/MM3 Absolute Eosinophils (auto) 0.1T/MM3 Absolute Basophils (auto) 0.0T/MM3 Turbidity < 20 Sodium Level 138MEQ/L Potassium Level 4.9MEQ/L Chloride Level 99MEQ/L Carbon Dioxide Level 28MEQ/L Anion Gap 11MEQ/L Blood Urea Nitrogen 46.0MG/DL Creatinine 1.4MG/DL Glomerular Filtration Rate Calc 36 BUN/Creatinine Ratio 33RATIO Glucose Level 119MG/DL Calculated Osmolality 279MOSM/KG Calcium Level 9.3MG/DL Icterus Index < 2 Chemistry Specimen Hemolysis < 15 Anticipated Interventions The patient requires inpatient IRF care for PT, OT, and/or ST for residuals remaining from [] resulting in muscular weakness and strength deficits. ROM Deficit: Right Lower Extremity Strength Deficits: Right Lower Extremity FIM Scores Ambulation Distance: 59 Wheelchair Propulsion Distance: 153 Ambulation Ability: 2 Maximum Assistance Ambulation Assistance Needed: 1 Person Walk FIM Score Reason: distance Wheelchair Propulsion Ability: 5 Supervision/Setup Wheelchair Propulsion [place]: 1 Person Stairs: 2 Maximum Assistance Stair Assistance Needed: 1 Person Eating Ability-FIM: 6 Modified [place] Grooming Ability: 5 Supervision/Setup Bathing Ability: 5 Supervision/Setup Upper Body Dressing Ability: 5 Supervision/Setup Lower Body Dressing Ability: 3 Moderate Assistance Lower Body Dressing Assistance: 1 Person Toileting Ability: 1 Total Assistance Toileting Assistance Needed: 1 Person Toileting FIM Score Reason: unsteady, needed steadying and assist Bed Transfer Ability: 5 Supervision/Setup Chair Transfer Ability: 4 Minimal Assistance Chair Transfer Assistance Need: 2 Persons Chair FIM Score Reason: REQUIRES CUEING TO MAINTAIN SAFETY Overall Wheelchair Transfer Ab: 4 Minimal Assistance Overall Toilet / Commode Trans: 4 Minimal Assistance Toilet / Commode Transfer Assi: 2 Persons Tub / Shower Transfer Ability: 3 Moderate Assistance Comprehension Ability: 6 Modified [place] Comprehension FIM Score Reason: hearing aids, [place] Social Interaction: 7+ Complete [place] Problem Solvin Supervision/Setup Expression Ability: 7+ Complete [place] Memory: 5 Supervision/Setup Current Functional Status Failed Alternative Therapy: Arrived from acute care Patient Requires * Patient has been determined to have significant functional limitations requiring at least two therapy disciplines. * Rehabilitation medical practitioner will provide admission approval, assessment and oversight and program coordination at least daily. * Intensive rehabilitative nursing services on site and available 24 hours a day. * The treatment plan will be developed within 24 hours of admission. * Interdisciplinary and goal oriented treatment by professional nursing, criminal justice social worker, and rehabilitation therapist. * Interdisciplinary team meeting weekly inclusive of ongoing comprehensive discharge planning. First team meeting by day seven. Weekly meetings to follow. * Rehab Physician is the team meeting leader. * Pharmacy and diagnostic services will be available. * Ongoing comprehensive rehab program with at least 2 disciplines and greater than or equal to 3 hours a day, 5 days a week. Limitations require: mobility impairment, limited mobility Physical Therapy Minutes: 90 Occupational Therapy Minutes: 90 Therapy The patient is to receive therapy at least 5 days a week. PT Treatment Plan: Therapeutic Exercise, Gait Training, Functional Activities , Patient/Family Education Treatment Plan Frequency: five times per week Treatment Plan Duration: two weeks Plan of Care Comment: 6x/week x 1 week, then 5x/week x 2 weeks OT Treatment Plan: ADL's (basic care), Ther. Exercise for ADL's, UE Functional Training, Balance Training, Pt./Family Education, IADL's OT Treatment Plan Frequency: five times per week OT Treatment Plan Duration: three weeks Anticapted LOS/Outcomes Anticipated Functional Outcome home with assist Anticipated DC Destination: Home Health Service Home Safety Plan The patient will be provided with the development of a Home Safety Plan for return to a home or home-like environment and to ensure safety post discharge. Complicating Conditions Complications since IRF admit: (1) Hypertension Status: Chronic Comments: Medical to manage. Patient has been uncontrolled and is currently on 4 blood pressure medications. (2) Status post total right knee replacement Status: Acute Comments: Physical therapy and occupational therapy are consulted. (3) Hypernatremia Status: Acute Comments: Medical to manage. Other Contributing Factors: Plan to Avoid Complications Barriers to Attaining Goals: weakness, balance, endurance, pain control Plan to Avoid Complications The patient cannot receive this care in a lesser intensive setting such as [facility]way or Outpatient Therapy due to the patient requiring the following Risk of injury with hypernatremia. The patient requires oversight by a rehabilitation physician to manage their rehabilitation treatment plan and the multidisciplinary approach to care that can only be provided in an IRF and requires a multidisciplinary approach to care , provided by professional PTs, OTs, STs, dieticians, RTs, rehabilitation nurses and is not available in lesser levels of care. The frequency and duration for therapy, as recommended by the professional Rehabilitation therapists, meet the patient's initial rehabilitation treatment plan needs and will be further evaluated on a weekly basis for progress and/or changes needed. Problem Qualifiers (1) Hypertension: Hypertension type: essential hypertension Qualified Codes: I10 - Essential ( primary) hypertension ANITA LEE MD December 21, 2016 13:21
[2016-12-21 15:34] VITALS: PULSE 73; RESP 18; O2SAT 95
[2016-12-21 16:32] VITALS: BP 132/66; PULSE 77; RESP 16; TEMP 97.9; O2SAT 96
--- NOTE | 2016-12-21 17:45 | NUR ---
SHIFT SUMMARY PT HAS BEEN PLEASANT AND COOPERATIVE. HAS BEEN OUT TO DINING ROOM FOR MEALS. PT AMBULATES TO BATHROOM WITH FWW AND GAIT BELT. WHEELCHAIR TO DINING ROOM. WAS INCONTINENT X1, WAS NOT AN ACCIDENT JUST INCONTINENT. PT HAS BEEN UP IN RECLINER MOST OF DAY.
[2016-12-21 21:30] VITALS: PULSE 72; RESP 16
[2016-12-21 22:27] VITALS: BP 145/62; PULSE 72; RESP 16; TEMP 98.3; O2SAT 96
--- NOTE | 2016-12-21 23:24 | NUR ---
Chart Check 24 hour chart check completed
--- NOTE | 2016-12-22 03:10 | NUR ---
Summary Alessandra is a pleasant patient. She is alert and oriented x three. She is able to make her needs known. Appropriate use of call light .She was medicated with Ultram 100 mg x one for report of pain .She has a polar pack that was placed to her right knee .The mepilex to her right knee is intact. She wore her SCD's bilaterally through the night. She slept most of the night in her recliner per her request. She is a stand and pivot to the bedside commode for voiding with assist of two staff. Hygiene per self. She is incontinent of bladder with the need of staff to manage her clothes.SR up x two when in bed and bed alarms engaged.
[2016-12-22] MEDS: TRAMADOL 50 MG TABLET PO PRN (04:57)
[2016-12-22] MEDS: OMEPRAZOLE 20 MG CAPSULE PO SCH (04:57)
[2016-12-22] MEDS: LEVOTHYROXINE 50 MCG TABLET PO SCH (05:00)
[2016-12-22 08:24] VITALS: BP 158/69; PULSE 82; RESP 16; TEMP 98.1; O2SAT 96
[2016-12-22] MEDS: MILK OF MAGNESIA 30 ML SUSP PO SCH (08:34)
[2016-12-22] MEDS: CLONIDINE 0.1 MG TABLET PO SCH ×2 (08:35→20:31)
[2016-12-22] MEDS: LOSARTAN 50 MG TABLET PO SCH ×2 (08:35→20:30)
[2016-12-22] MEDS: MAGNESIUM OXIDE 400 MG TABLET PO SCH (08:35)
[2016-12-22] MEDS: CARVEDILOL 25 MG TABLET PO SCH ×2 (08:36→17:22)
[2016-12-22] MEDS: ACETAMINOPHEN 325 MG TABLET PO SCH ×4 (08:36→20:31)
[2016-12-22] MEDS: ASPIRIN *EC* 325mg TABLET PO SCH ×2 (08:36→20:30)
[2016-12-22] MEDS: MULTIVIT + MINERALS (OPTI-GEN) PO SCH (08:36)
[2016-12-22] MEDS: OMEGA-3 ACID ESTERS 1 G CAPSULE PO SCH (08:36)
[2016-12-22] MEDS: POLYETHYL.GLYCOL 3350 PACKET 17gm PO SCH (08:36)
[2016-12-22] MEDS: MULTIVITAMIN + MINERAL TABLET PO SCH (08:36)
[2016-12-22] MEDS: DOCUSATE SODIUM 100 MG CAPSULE PO SCH ×2 (08:37→20:30)
[2016-12-22] MEDS: CALCIUM 600mg + VIT D 400 TABLET PO SCH (08:37)
[2016-12-22] MEDS: FUROSEMIDE 20 MG TABLET PO SCH ×2 (08:37→13:51)
[2016-12-22 09:30] VITALS: PULSE 82; RESP 16
[2016-12-22 09:52] LABS: ANION GAP 10 MEQ/L (5-15); BUN/CREATININE RATIO 31 RATIO (6-26); CALCIUM 9.2 MG/DL (8.4-10.2); CHLORIDE 98 MEQ/L (98-107); CO2 - CARBON DIOXIDE 30 MEQ/L (22-30); CREATININE 0.9 MG/DL (0.7-1.2); GLOMERULAR FILTRATION RATE 59; GLUCOSE 159 MG/DL (65-110); POTASSIUM 4.1 MEQ/L (3.6-5); SODIUM 138 MEQ/L (134-144)
[2016-12-22 16:23] VITALS: BP 140/66; PULSE 77; RESP 18; TEMP 98.5; O2SAT 96
--- NOTE | 2016-12-22 16:49 | PNPDOC ---
Subjective Date DATE: 12/22/16 TIME: 16:44 Subjective Alessandra is seen today in follow up while resting in her chair. She notes that her right lower extremity is more swollen with some mild erythema around her knee incision, however, she denies any drainage or increased pain. She reports mild to moderate knee discomfort with ambulation and weightbearing. No chest pain, shortness of breath or GI complaints. Appetite is good and bowels are moving regularly Objective Vital Signs Vital signs Vital Signs Date Time Temp Pulse Resp B/P Pulse Ox O2 Delivery O2 Flow Rate FiO2 12/22/16 16:23 98.5 77 18 140/66 96 Room Air Height (Feet): 5 Height (Inches): 2.00 Weight (Kilograms): 75.000 General General Appearance: Alert, Orientated x 3, Cooperative, No Acute Distress Eyes (Brief) Eyes: FOUND: EOMI ENMT (Brief) ENMT: FOUND: mucosa moist, normal dentition, NOT FOUND: pharnyx erythema Neck (Brief) Neck: FOUND: midline, NOT FOUND: adenopathy, carotid bruits, tracheal deviation Respiratory (Brief) Respiratory: FOUND: clear all lozano, equal bilaterally, NOT FOUND: wheezes Cardiovascular (Brief) Cardiac: FOUND: regular rate, regular rhythm, NOT FOUND: murmur, pedal edema Capillary Refill: <2 sec Abdomen (Brief) Abdominal: FOUND: BS normo active x4, soft, NOT FOUND: distended, tender Lymphatic (Brief) Lymphatic: NOT FOUND: adenopathy Musculoskeletal (Brief) Musculoskeletal: FOUND: tenderness (right knee, postoperative pain) Integumentary (Brief) Integumentary: FOUND: dry, pink, warm Neurologic (Brief) Neurological: FOUND: cranial 2-12 intact Psychiatric (Brief) Psychiatric: FOUND: alert, attentive, normal affect, oriented Laboratory Laboratory Laboratory Tests 12/22/16 09:10 Assessment & Plan Problems: (1) Status post total right knee replacement Status: Acute Assessment & Plan: 12/17/[address] Crowder. (2) Normocytic anemia Status: Acute Assessment & Plan: most likely post-op related. stable at 10.5. (3) Pulmonary HTN Status: Chronic (4) Diastolic CHF, chronic Status: Chronic (5) Hypertension Status: Chronic Qualifiers: Hypertension type: essential hypertension Qualified Codes: I10 - Essential (primary) hypertension (6) Hyperlipemia Status: Chronic (7) Hypothyroidism Status: Chronic (8) GERD (gastroesophageal reflux disease) Status: Chronic Qualifiers: Esophagitis presence: esophagitis presence not specified Qualified Codes: K21.9 - Gastro-esophageal reflux disease without esophagitis (9) Osteoarthritis Status: Chronic Qualifiers: Osteoarthritis location: multiple joints Osteoarthritis type: primary Qualified Codes: M15.0 - Primary generalized (osteo)arthritis (10) Incontinence Status: Chronic (11) Constipation Status: Chronic Qualifiers: Constipation type: slow transit constipation Qualified Codes: K59.01 - Slow transit constipation (12) Allergic rhinitis Status: Chronic Qualifiers: Allergic rhinitis trigger: unspecified Allergic rhinitis seasonality: unspecified seasonality Qualified Codes: J30.9 - Allergic rhinitis, unspecified (13) Obesity (BMI 30-39.9) Status: Chronic Plan/Intensity of Service 12/22/16 Overall, Alessandra is doing well. She does voice some mild concern about the right lower extremity swelling and erythema. Encouraged her to utilize ice packs. We will continue to monitor carefully. Does not appear to be acutely infected as there is no drainage. She is afebrile with a normal white count. Continue with postoperative anticoagulation of 325 milligrams aspirin twice a day Monitor blood pressure and continue on current regimen Catapres, Coreg Continue Lasix twice a day for ongoing diuresis Postoperative hemoglobin has remained stable at 10.5. Electrolytes reviewed this morning are normal. Take to encourage work with PT and OT for ongoing postoperative strengthening of improved function. Code Status Full Code Hospital Course Summary Disclaimer The hospital course summary below is not to be considered part of the above Progress Note. Hospital Course Summary 12/22/16 Overall, Alessandra is doing well. She does voice some mild concern about the right lower extremity swelling and erythema. Encouraged her to utilize ice packs. We will continue to monitor carefully. Does not appear to be acutely infected as there is no drainage. She is afebrile with a normal white count. Continue with postoperative anticoagulation of 325 milligrams aspirin twice a day Monitor blood pressure and continue on current regimen Catapres, Coreg Continue Lasix twice a day for ongoing diuresis Postoperative hemoglobin has remained stable at 10.5. Electrolytes reviewed this morning are normal. Take to encourage work with PT and OT for ongoing postoperative strengthening of improved function. EVANGELINA DYER APRN December 22, 2016 16:49
--- NOTE | 2016-12-22 17:42 | NUR ---
Summary Pt. is very pleasant. VS's stable. Pt. is on RA. She has denied n/v. Pt. is a moderate assist pivot transfer x1 with FWW and gait belt. She is incontinent at times. I/O adequate. Pt. has been rating pain in right knee a 3-11/11. She is on scheduled Tylenol. Please see eMAR. Re-positioning and polar pack encouraged. Right knee mepilex dressing C/D/I. Bilateral pedal pulses palpable. Will pass on report to clinical coder.
[2016-12-22 19:18] VITALS: BP 133/72; PULSE 80; RESP 18; TEMP 98.6; O2SAT 95
[2016-12-22 22:00] VITALS: PULSE 77; RESP 18
--- NOTE | 2016-12-22 22:27 | NUR ---
Chart Check 24 hour chart check completed
--- NOTE | 2016-12-23 00:10 | PNPDOC ---
IRU Subjective Date DATE: 12/22/16 TIME: 1444 Subjective Working with PT and OT to increase stamina. Therapies report that she is putting in good effort. IRU Objective Vital Signs Vital signs Vital Signs Date Time Temp Pulse Resp B/P Pulse Ox O2 Delivery O2 Flow Rate FiO2 12/22/16 22:00 77 18 12/22/16 19:18 98.6 133/72 95 Room Air Telemetry Rhythm: Sinus Rhythm Height (Feet): 5 Height (Inches): 2.00 Weight (Kilograms): 75.000 General General Appearance: Alert, Orientated x 2 Respiratory (Brief) Respiratory: FOUND: clear all lozano, equal bilaterally Cardiovascular (Brief) Cardiac: FOUND: regular rate, regular rhythm, NOT FOUND: pedal edema Laboratory Laboratory Laboratory Tests Test 12/22/16 09:10 Turbidity < 20 Sodium Level 138MEQ/L Potassium Level 4.1MEQ/L Chloride Level 98MEQ/L Carbon Dioxide Level 30MEQ/L Anion Gap 10MEQ/L Blood Urea Nitrogen 28.0MG/DL Creatinine 0.9MG/DL Glomerular Filtration Rate Calc 59 BUN/Creatinine Ratio 31RATIO Glucose Level 159MG/DL Calculated Osmolality 275MOSM/KG Calcium Level 9.2MG/DL Icterus Index < 2 Chemistry Specimen Hemolysis < 15 Assessment & Plan Problems: (1) Hypertension Status: Chronic Qualifiers: Hypertension type: essential hypertension Qualified Codes: I10 - Essential (primary) hypertension Assessment & Plan: medical to manage. (2) Status post total right knee replacement Status: Acute Assessment & Plan: Incresing distance walked and showing increase in strength. See FIMS on friday. (3) Hypernatremia Status: Acute Assessment & Plan: medical to manage DVT Prophylaxis: SCD'S Code Status Full Code Interventions to Obtain Goals PT Treatment Plan: Therapeutic Exercise, Gait Training, Functional Activities , Patient/Family Education OT Treatment Plan: ADL's (basic care), Ther. Exercise for ADL's, UE Functional Training, Balance Training, Pt./Family Education, IADL's Hospital Course Summary Disclaimer The hospital course summary below is not to be considered part of the above Progress Note. Hospital Course Summary 12/22/16 Overall, Alessandra is doing well. She does voice some mild concern about the right lower extremity swelling and erythema. Encouraged her to utilize ice packs. We will continue to monitor carefully. Does not appear to be acutely infected as there is no drainage. She is afebrile with a normal white count. Continue with postoperative anticoagulation of 325 milligrams aspirin twice a day Monitor blood pressure and continue on current regimen Catapres, Coreg Continue Lasix twice a day for ongoing diuresis Postoperative hemoglobin has remained stable at 10.5. Electrolytes reviewed this morning are normal. Take to encourage work with PT and OT for ongoing postoperative strengthening of improved function. ANITA LEE MD December 23, 2016 00:10
[2016-12-23] MEDS: TRAMADOL 50 MG TABLET PO PRN ×2 (01:49→12:53)
[2016-12-23] MEDS: LEVOTHYROXINE 50 MCG TABLET PO SCH (04:55)
[2016-12-23] MEDS: OMEPRAZOLE 20 MG CAPSULE PO SCH (04:56)
--- NOTE | 2016-12-23 05:05 | NUR ---
SUMMARY. PT CALLS FOR BR ASSIST. USING FWW AND GAITBELT WITH 1 ASSIST. PT MAKES NEEDS KNOWN. SLEPT IN RECLINER FOR PART OF THE NIGHT AND THEN THE BED. POLAR PACK TO RT KNEE FOR COMFORT AND EDEMA. DRSG IN PLACE. TAKES MEDS WHOLE. SCHEDULED TYLENOL GIVEN AND THEN ULTRAM 1 TAB GIVEN AT 0150 FOR 6/10 PAIN LEVEL. PT HAS INCONT OF BLADDER AT TIMES. ASSIST WITH INCONT CARE. DAILY WT OBTAIN AND CHARTED.
[2016-12-23 05:09] LABS: ANION GAP 8 MEQ/L (5-15); BUN/CREATININE RATIO 31 RATIO (6-26); CALCIUM 9.1 MG/DL (8.4-10.2); CHLORIDE 100 MEQ/L (98-107); CO2 - CARBON DIOXIDE 31 MEQ/L (22-30); CREATININE 0.9 MG/DL (0.7-1.2); GLOMERULAR FILTRATION RATE 59; GLUCOSE 117 MG/DL (65-110); POTASSIUM 4.2 MEQ/L (3.6-5); SODIUM 139 MEQ/L (134-144)
[2016-12-23 08:00] VITALS: BP 164/88; PULSE 77; RESP 16; TEMP 96.7; O2SAT 93
[2016-12-23] MEDS: MILK OF MAGNESIA 30 ML SUSP PO SCH (08:00)
[2016-12-23 08:40] VITALS: PULSE 76; RESP 16
[2016-12-23] MEDS: DOCUSATE SODIUM 100 MG CAPSULE PO SCH ×2 (08:43→20:56)
[2016-12-23] MEDS: LOSARTAN 50 MG TABLET PO SCH ×2 (08:43→20:53)
[2016-12-23] MEDS: OMEGA-3 ACID ESTERS 1 G CAPSULE PO SCH (08:43)
[2016-12-23] MEDS: MULTIVIT + MINERALS (OPTI-GEN) PO SCH (08:43)
[2016-12-23] MEDS: CARVEDILOL 25 MG TABLET PO SCH ×2 (08:43→17:26)
[2016-12-23] MEDS: CALCIUM 600mg + VIT D 400 TABLET PO SCH (08:44)
[2016-12-23] MEDS: POLYETHYL.GLYCOL 3350 PACKET 17gm PO SCH (08:44)
[2016-12-23] MEDS: MAGNESIUM OXIDE 400 MG TABLET PO SCH (08:44)
[2016-12-23] MEDS: CLONIDINE 0.1 MG TABLET PO SCH ×2 (08:44→20:53)
[2016-12-23] MEDS: ASPIRIN *EC* 325mg TABLET PO SCH ×2 (08:44→20:53)
[2016-12-23] MEDS: FUROSEMIDE 20 MG TABLET PO SCH ×2 (08:44→14:00)
[2016-12-23] MEDS: MULTIVITAMIN + MINERAL TABLET PO SCH (08:44)
[2016-12-23] MEDS: ACETAMINOPHEN 325 MG TABLET PO SCH ×4 (08:47→20:59)
[2016-12-23 16:21] VITALS: BP 149/71; PULSE 82; RESP 12; TEMP 98.1; O2SAT 94
--- NOTE | 2016-12-23 18:01 | NUR ---
SHIFT SUMMARY PT HAS BEEN PLEASANT AND COOPERATIVE. PT AMBULATES WITH FWW AND GAIT BELT, WITH WHEELCHAIR FOLLOWING BEHIND. 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 PT WORKED WITH THERAPY.
[2016-12-23 20:32] VITALS: BP 129/69; PULSE 81; RESP 14; TEMP 98.4; O2SAT 92
[2016-12-24] MEDS: OMEPRAZOLE 20 MG CAPSULE PO SCH (06:34)
[2016-12-24] MEDS: LEVOTHYROXINE 50 MCG TABLET PO SCH (06:34)
--- NOTE | 2016-12-24 07:33 | NUR ---
Summary Pt stated Friday afternoon would be a good time to do vehicle transfer. Pt slept in bed for the first part of the night and then the recliner after getting up to the BR. Pt states she slept well last night and was in her room in recliner resting at time of report.
[2016-12-24 08:44] VITALS: BP 151/70; PULSE 83; RESP 16; TEMP 98.2; O2SAT 93
[2016-12-24] MEDS: CLONIDINE 0.1 MG TABLET PO SCH ×2 (08:46→20:43)
[2016-12-24] MEDS: CALCIUM 600mg + VIT D 400 TABLET PO SCH (08:46)
[2016-12-24] MEDS: LOSARTAN 50 MG TABLET PO SCH ×2 (08:46→20:42)
[2016-12-24] MEDS: CARVEDILOL 25 MG TABLET PO SCH ×2 (08:46→17:23)
[2016-12-24] MEDS: ASPIRIN *EC* 325mg TABLET PO SCH ×2 (08:47→20:42)
[2016-12-24] MEDS: DOCUSATE SODIUM 100 MG CAPSULE PO SCH ×2 (08:47→20:44)
[2016-12-24] MEDS: POLYETHYL.GLYCOL 3350 PACKET 17gm PO SCH (08:48)
[2016-12-24] MEDS: FUROSEMIDE 20 MG TABLET PO SCH ×2 (08:48→12:19)
[2016-12-24] MEDS: OMEGA-3 ACID ESTERS 1 G CAPSULE PO SCH (08:48)
[2016-12-24] MEDS: MAGNESIUM OXIDE 400 MG TABLET PO SCH (08:48)
[2016-12-24] MEDS: MULTIVIT + MINERALS (OPTI-GEN) PO SCH (08:49)
[2016-12-24] MEDS: MULTIVITAMIN + MINERAL TABLET PO SCH (08:49)
[2016-12-24] MEDS: ACETAMINOPHEN 325 MG TABLET PO SCH ×4 (08:52→20:43)
[2016-12-24] MEDS: MILK OF MAGNESIA 30 ML SUSP PO SCH (08:54)
--- NOTE | 2016-12-24 11:30 | NUR ---
CM SPOKE WITH PT. PROVIDED ADVANCED DIRECTIVES. OFFERED TO ARRANGE NOT[employer] SERVICES FOR THIS, IF SHE WANTS TO COMPLETE IT WHILE SHE IS HERE. SHE SAID SHE WANTS TO HAVE HER REVIEW IT AND THEN SHE WILL DECIDE. THIS WORKER ASKED HER TO CALL IF SHE DOES WANT [employer]; REVIEWED CONTACT INFO. ALSO REVIEWED DC PLAN; IT IS STILL HOME WITH SPOUSE. Addendum: 12/24/16 at 1132 by SARANYA KENNEDY Amended: Links added.
[2016-12-24] MEDS: TRAMADOL 50 MG TABLET PO PRN ×2 (11:42→20:44)
--- NOTE | 2016-12-24 11:43 | NUR ---
PAIN PT RATES 7/10 PAIN IN HER RIGHT KNEE. TRAMADOL 100MG PO GIVEN PER PT REQUEST.
--- NOTE | 2016-12-24 12:33 | PDIRUTEAM ---
Multidisciplinary Team Meeting Nursing Hx Incontinence: Yes (at times) Bladder Goal: 5 Supervision/Setup Pedraza Y/N: No Bladder Continent or Incontine: Continent Incontinent Product Used: Pull-up Number of Times Incontinent of: 0 Cleaning Ability-Bladder: 5 Supervision/Setup Bladder Incontinence Managemen: 3 Moderate Assistance Bowel Goal: 5 Supervision/Setup Colostomy Y/N: No Bowel Incontinent/Continent: Continent Bowel Number of Accidents: 0 Number of times Incontinent of: 0 Cleaning Ability-Bowel: 2 Maximum Assistance Bowel Incontinence Management: 1 Total Assistance Toileting Ability: 5 Supervision/Setup Vital Signs Vital Signs Date Time Temp Pulse Resp B/P Pulse Ox O2 Delivery O2 Flow Rate FiO2 12/24/16 08:44 98.2 83 16 151/70 93 Room Air Current Medications Current Medications Medications (Trade) Dose Ordered Sig/Patrick Route PRN Reason Start Time Stop Time Status Last Admin Dose Admin Acetaminophen (Tylenol Regular Strength) 650 mg QID PO 12/18/16 21:00 12/24/16 12:18 Aspirin (Ecotrin) 325 mg BID PO 12/18/16 21:00 12/24/16 08:47 Calcium/Vitamin D (Caltrate + D) 1 tab DAILY PO 12/19/16 09:00 12/24/16 08:46 Carvedilol (Coreg) 25 mg BIDWM PO 12/19/16 08:00 12/24/16 08:46 Clonidine HCl (Catapres) 0.05 mg BID PO 12/18/16 21:00 12/24/16 08:46 Docusate Sodium (Colace) 100 mg BID PO 12/18/16 21:00 12/23/16 08:43 Furosemide (Lasix) 20 mg BID PO 12/18/16 21:00 12/19/16 08:28 DC 12/18/16 20:46 Levothyroxine Sodium (Synthroid) 50 mcg ACB PO 12/19/16 06:30 12/24/16 06:34 Losartan Potassium (COZAAR 50 mg) 50 mg BID PO 12/18/16 21:00 12/24/16 08:46 Magnesium Hydroxide (Mom) 30 ml 0800 PO 12/19/16 08:00 12/22/16 08:34 Magnesium Oxide (Magox) 400 mg DAILY PO 12/19/16 09:00 12/24/16 08:48 Multivitamins/ Minerals (Therapeutic - M) 1 tab DAILY PO 12/19/16 09:00 12/24/16 08:49 Uqfkq-4-Plyd Ethyl Esters (Lovaza) 1 g DAILY PO 12/19/16 09:00 12/24/16 08:48 Omeprazole (Prilosec) 20 mg ACB PO 12/19/16 06:30 12/24/16 06:34 Polyethylene Glycol (Miralax) 17 g DAILY PO 12/19/16 09:00 12/23/16 08:44 Potassium Chloride (Kdur) 20 meq BIDWM PO 12/18/16 21:00 Future Hold 12/20/16 08:14 Tramadol HCl (Ultram) 1-2 TABLETS Q6H PRN PO PAIN 12/18/16 18:00 12/24/16 11:42 Multivitamins/ Minerals (Vision) 1 tab DAILY PO 12/19/16 09:00 12/24/16 08:49 Scopolamine HBr (Transderm-Scop Patch Removal) 1 removal Q3D TD 12/21/16 07:45 12/21/16 07:47 DC 12/21/16 09:11 Furosemide (Lasix) 20 mg BID PO 12/19/16 09:00 12/19/16 09:09 DC 12/19/16 08:32 Furosemide (Lasix) 20 mg BID. PO 12/19/16 17:00 12/22/16 10:52 DC 12/22/16 08:37 Furosemide (Lasix) 20 mg BID.. PO 12/22/16 14:00 12/24/16 12:00 DC 12/24/16 08:48 Furosemide (Lasix) 20 mg 0630,12 PO 12/24/16 12:00 12/24/16 12:19 Comments Pain managed with tylenol. Physical Therapy Bed Transfer Ability: 5 Supervision/Setup Bed Transfer Assistance Needed: 1 Person Chair Transfer Ability: 5 Supervision/Setup Chair Transfer Assistance Need: 1 Person Chair FIM Score Reason: REQUIRES CUEING TO MAINTAIN SAFETY Overall Wheelchair Transfer Ab: 5 Supervision/Setup Wheelchair Transfer Assistance: 1 Person Overall Toilet / Commode Trans: 5 Supervision/Setup Ambulation Ability: 2 Maximum Assistance Ambulation Assistance Needed: 1 Person Walk FIM Score Reason: distance Ambulation Distance: 59 Comments Stairs and ambulation low FIM. Fair, slow progress. Occupational Therapy Grooming Ability: 5 Supervision/Setup Bathing Ability: 5 Supervision/Setup Upper Body Dressing Ability: 5 Supervision/Setup Lower Body Dressing Ability: 3 Moderate Assistance Lower Body Dressing Assistance: 1 Person Toileting Assistance Needed: 1 Person Toileting FIM Score Reason: Comments Progressing for ADL tasks. May need wheelchair or walker. Care Plan Condition at time of discharge: Fair IRU Discharge Disposition: Home Health Service Interventions/Goals Plan one more week. Barriers to d/c: Pain, endurance, strength. Look to home health and front wheel walker. ANITA LEE MD December 24, 2016 12:32
--- NOTE | 2016-12-24 15:03 | NUR ---
CM CM IN TO VISIT WITH PT. POC DISCUSSED PT IS IN AGREEMENT WITH THE POC AND HAS SIGNED THE POC.
[2016-12-24 16:00] VITALS: BP 179/88; PULSE 84; RESP 12; TEMP 97.5; O2SAT 95
--- NOTE | 2016-12-24 17:45 | NUR ---
SHIFT SUMMARY PATIENT AMBULATES WITH FWW/GAIT BELT WITH ASSIST OF ONE STAFF AND TOLERATES WELL. SHE IS ABLE TO AMBULATE FROM HER ROOM TO THE DINING ROOM. HER PAIN HAS BEEN MANAGEABLE TODAY WITH USE OF POLAR DEQUAN, SCHEDULED TYLENOL AND ONE DOSE OF TRAMADOL. SHE HAS HAD ONE INCONTINENT VOID DUE TO URGENCY WHILE AMBULATING TO THE BATHROOM. hER DRESSING IS DRY AND INTACT TO HER LEFT KNEE. SHE IS COMPLIANT WITH ALL THERAPIES AND NURSING STAFF REQUESTS.
[2016-12-24 20:22] VITALS: BP 141/69; PULSE 73; RESP 16; TEMP 97.8; O2SAT 93
--- NOTE | 2016-12-25 06:37 | NUR ---
Summary Pt slept the night in her bed and voiced surprise that she slept most of the night. Pt states she slept well and feels good this morning. Pain to knee managed with PRN pain meds and polar pack. SCD's on through the night. Pt in recliner resting at this time.
[2016-12-25] MEDS: OMEPRAZOLE 20 MG CAPSULE PO SCH (07:44)
[2016-12-25] MEDS: LEVOTHYROXINE 50 MCG TABLET PO SCH (07:45)
[2016-12-25] MEDS: FUROSEMIDE 20 MG TABLET PO SCH ×2 (07:45→12:23)
[2016-12-25 08:00] VITALS: PULSE 73; RESP 16
[2016-12-25] MEDS: MILK OF MAGNESIA 30 ML SUSP PO SCH (08:00)
[2016-12-25] MEDS: DOCUSATE SODIUM 100 MG CAPSULE PO SCH ×2 (09:00→21:00)
[2016-12-25] MEDS: CALCIUM 600mg + VIT D 400 TABLET PO SCH (09:02)
[2016-12-25] MEDS: ASPIRIN *EC* 325mg TABLET PO SCH ×2 (09:03→21:06)
[2016-12-25] MEDS: MULTIVITAMIN + MINERAL TABLET PO SCH (09:03)
[2016-12-25] MEDS: OMEGA-3 ACID ESTERS 1 G CAPSULE PO SCH (09:03)
[2016-12-25] MEDS: MULTIVIT + MINERALS (OPTI-GEN) PO SCH (09:03)
[2016-12-25] MEDS: POLYETHYL.GLYCOL 3350 PACKET 17gm PO SCH (09:04)
[2016-12-25] MEDS: MAGNESIUM OXIDE 400 MG TABLET PO SCH (09:04)
[2016-12-25] MEDS: LOSARTAN 50 MG TABLET PO SCH ×2 (09:04→21:06)
[2016-12-25] MEDS: CLONIDINE 0.1 MG TABLET PO SCH ×2 (09:04→21:06)
[2016-12-25] MEDS: CARVEDILOL 25 MG TABLET PO SCH ×2 (09:05→17:47)
[2016-12-25 09:08] VITALS: BP 155/69; PULSE 82; RESP 12; TEMP 97.6; O2SAT 96
[2016-12-25] MEDS: ACETAMINOPHEN 325 MG TABLET PO SCH ×4 (09:12→21:07)
[2016-12-25] MEDS: TRAMADOL 50 MG TABLET PO PRN ×2 (12:23→21:07)
[2016-12-25 15:52] VITALS: BP 137/71; PULSE 87; RESP 16; TEMP 98.1; O2SAT 94
--- NOTE | 2016-12-25 18:01 | NUR ---
Shift summary Patient alert and oriented x3. Ambulating with FWW, gait belt, min assist. Patient has dressing to right knee. Uses scheduled tylenol, polar salvador and prn tramadol for discomfort. Transfers from surface to surface with min to stand by assist. Had one bowel accident and one bladder accident this shift. Patient wears glasses. Enjoys socializing with other patients in dining room during meal time.
[2016-12-25 19:41] VITALS: BP 130/66; PULSE 84; RESP 16; TEMP 97.9; O2SAT 94
--- NOTE | 2016-12-25 23:30 | NUR ---
Status Patient has been pleasant and cooperative. Up to restroom ambulating with FWW and gait belt. She was incontinent of urine on the way to the toilet, but finished in the toilet. She asked for pain medication this evening, rating her pain at 2/10. She is laying in her bed now with SCDs on, polar pack to knee, side rails up times two and bed alarm on.
--- NOTE | 2016-12-25 23:35 | NUR ---
Chart Check 24 hour chart check completed
--- NOTE | 2016-12-26 04:06 | PNPDOC ---
IRU Subjective Date DATE: 12/24/16 TIME: 1600 Subjective Pt working with PT and OT, pain managed. Feels like she is improving strength. IRU Objective Vital Signs Vital signs Vital Signs Date Time Temp Pulse Resp B/P Pulse Ox O2 Delivery O2 Flow Rate FiO2 12/25/16 19:41 97.9 84 16 130/66 94 Room Air Telemetry Rhythm: Sinus Rhythm Height (Feet): 5 Height (Inches): 2.00 Weight (Kilograms): 75.600 General General Appearance: Alert, Orientated x 2 Respiratory (Brief) Respiratory: FOUND: clear all lozano, equal bilaterally Cardiovascular (Brief) Cardiac: FOUND: regular rate, regular rhythm Assessment & Plan Problems: (1) Hypertension Status: Chronic Qualifiers: Hypertension type: essential hypertension Qualified Codes: I10 - Essential (primary) hypertension Assessment & Plan: managed by medical. (2) Status post total right knee replacement Status: Acute Assessment & Plan: PT and OT per care plan. Cont to work with patient and plan reeval next team meeting. (3) Hypernatremia Status: Acute Assessment & Plan: managed by medical. Code Status Full Code Interventions to Obtain Goals PT Treatment Plan: Therapeutic Exercise, Gait Training, Functional Activities , Patient/Family Education OT Treatment Plan: ADL's (basic care), Ther. Exercise for ADL's, UE Functional Training, Balance Training, Pt./Family Education, IADL's Hospital Course Summary Disclaimer The hospital course summary below is not to be considered part of the above Progress Note. Hospital Course Summary 12/22/16 Overall, Alessandra is doing well. She does voice some mild concern about the right lower extremity swelling and erythema. Encouraged her to utilize ice packs. We will continue to monitor carefully. Does not appear to be acutely infected as there is no drainage. She is afebrile with a normal white count. Continue with postoperative anticoagulation of 325 milligrams aspirin twice a day Monitor blood pressure and continue on current regimen Catapres, Coreg Continue Lasix twice a day for ongoing diuresis Postoperative hemoglobin has remained stable at 10.5. Electrolytes reviewed this morning are normal. Take to encourage work with PT and OT for ongoing postoperative strengthening of improved function. ANITA LEE MD December 26, 2016 04:03
[2016-12-26] MEDS: OMEPRAZOLE 20 MG CAPSULE PO SCH (04:48)
[2016-12-26] MEDS: LEVOTHYROXINE 50 MCG TABLET PO SCH (04:49)
[2016-12-26] MEDS: FUROSEMIDE 20 MG TABLET PO SCH ×2 (04:49→12:54)
[2016-12-26] MEDS: TRAMADOL 50 MG TABLET PO PRN ×3 (04:49→22:02)
--- NOTE | 2016-12-26 05:51 | NUR ---
Summary Alessandra slept very well in her bed again last night. She awoke about 0430 to use restroom then transferred to her recliner. She has her feet elevated and Polar pack to her left knee. She reported 8/10 pain when walking and about 2/10 pain when sitting this morning and took another Tramadol with her mineral surveyor medications.
[2016-12-26 07:30] VITALS: PULSE 78
[2016-12-26 08:00] VITALS: BP 179/75; PULSE 78; RESP 18; TEMP 97.9; O2SAT 96
[2016-12-26] MEDS: MILK OF MAGNESIA 30 ML SUSP PO SCH (08:00)
[2016-12-26] MEDS: ACETAMINOPHEN 325 MG TABLET PO SCH ×4 (08:54→22:01)
[2016-12-26] MEDS: POLYETHYL.GLYCOL 3350 PACKET 17gm PO SCH (09:00)
[2016-12-26] MEDS: MULTIVITAMIN + MINERAL TABLET PO SCH (09:09)
[2016-12-26] MEDS: OMEGA-3 ACID ESTERS 1 G CAPSULE PO SCH (09:09)
[2016-12-26] MEDS: ASPIRIN *EC* 325mg TABLET PO SCH ×2 (09:09→22:02)
[2016-12-26] MEDS: DOCUSATE SODIUM 100 MG CAPSULE PO SCH ×2 (09:09→22:00)
[2016-12-26] MEDS: CLONIDINE 0.1 MG TABLET PO SCH ×2 (09:09→22:02)
[2016-12-26] MEDS: LOSARTAN 50 MG TABLET PO SCH ×2 (09:09→22:01)
[2016-12-26] MEDS: CALCIUM 600mg + VIT D 400 TABLET PO SCH (09:09)
[2016-12-26] MEDS: CARVEDILOL 25 MG TABLET PO SCH ×2 (09:10→18:27)
[2016-12-26] MEDS: MAGNESIUM OXIDE 400 MG TABLET PO SCH (09:10)
[2016-12-26] MEDS: MULTIVIT + MINERALS (OPTI-GEN) PO SCH (09:10)
[2016-12-26 16:00] VITALS: BP 153/70; PULSE 82; RESP 18; TEMP 98.3; O2SAT 90
--- NOTE | 2016-12-26 16:13 | PNPDOC ---
EVANGELINA DYER V KINDERGARTNER 12/26/16 1613: Subjective Date DATE: 12/26/16 TIME: 16:08 Subjective Teo seen while ambulating out of the restroom this afternoon. She reports had a difficulty with pain in the right knee, following therapy. He was able to lay down and take a nap and now is feeling better following tramadol and Tylenol. He needs to have increased swelling to the right lower extremity and worsening ecchymosis to the last 2 days. She denies any calf tenderness on examination. Denies feeling short of breath or having chest pain. Appetite is good. Objective Vital Signs Vital signs Vital Signs Date Time Temp Pulse Resp B/P Pulse Ox O2 Delivery O2 Flow Rate FiO2 12/26/16 08:00 97.9 78 18 179/75 96 Room Air Telemetry Rhythm: Sinus Rhythm Height (Feet): 5 Height (Inches): 2.00 Weight (Kilograms): 75.600 General General Appearance: Alert, Orientated x 3, Cooperative, No Acute Distress Eyes (Brief) Eyes: FOUND: EOMI ENMT (Brief) ENMT: FOUND: mucosa moist, normal dentition, NOT FOUND: pharnyx erythema Neck (Brief) Neck: FOUND: midline, NOT FOUND: adenopathy, carotid bruits, tracheal deviation Respiratory (Brief) Respiratory: FOUND: clear all lozano, equal bilaterally, NOT FOUND: wheezes Cardiovascular (Brief) Cardiac: FOUND: regular rate, regular rhythm, NOT FOUND: murmur, pedal edema Capillary Refill: <2 sec Abdomen (Brief) Abdominal: FOUND: BS normo active x4, soft, NOT FOUND: distended, tender Extremities (Brief) Extremity : Side: Right Extremity: other Extremity Finding: FOUND: discoloration (ecchymosis to the right lower extremity), edema, pain (knee) Lymphatic (Brief) Lymphatic: NOT FOUND: adenopathy Musculoskeletal (Brief) Musculoskeletal: NOT FOUND: tenderness Integumentary (Brief) Integumentary: FOUND: dry, pink, warm Neurologic (Brief) Neurological: FOUND: cranial 2-12 intact Psychiatric (Brief) Psychiatric: FOUND: alert, attentive, normal affect, oriented Assessment & Plan Problems: (1) Status post total right knee replacement Status: Acute Assessment & Plan: 12/17/[address] Crowder. (2) Normocytic anemia Status: Acute Assessment & Plan: most likely post-op related. stable at 10.5. (3) Pulmonary HTN Status: Chronic (4) Diastolic CHF, chronic Status: Chronic (5) Hypertension Status: Chronic (6) Hyperlipemia Status: Chronic (7) Hypothyroidism Status: Chronic (8) GERD (gastroesophageal reflux disease) Status: Chronic Qualifiers: Esophagitis presence: esophagitis presence not specified Qualified Codes: K21.9 - Gastro-esophageal reflux disease without esophagitis (9) Osteoarthritis Status: Chronic Qualifiers: Osteoarthritis location: multiple joints Osteoarthritis type: primary Qualified Codes: M15.0 - Primary generalized (osteo)arthritis (10) Incontinence Status: Chronic (11) Constipation Status: Chronic Qualifiers: Constipation type: slow transit constipation Qualified Codes: K59.01 - Slow transit constipation (12) Allergic rhinitis Status: Chronic Qualifiers: Allergic rhinitis trigger: unspecified Allergic rhinitis seasonality: unspecified seasonality Qualified Codes: J30.9 - Allergic rhinitis, unspecified (13) Obesity (BMI 30-39.9) Status: Chronic Plan/Intensity of Service 12/26/16 She continues to have moderate pain to the right lower extremity along with increasing swelling and ecchymosis. To rule out an acute DVT. We will obtain a venous Doppler of the right lower extremity. She continues on aspirin 325 milligrams twice a day for postoperative anticoagulation. Tylenol and tramadol for pain control Recheck CBC tomorrow morning to follow. Postoperative blood counts. In today to encourage work with PT and OT for ongoing strengthening Code Status Full Code Hospital Course Summary Disclaimer The hospital course summary below is not to be considered part of the above Progress Note. Hospital Course Summary 12/22/16 Overall, Alessandra is doing well. She does voice some mild concern about the right lower extremity swelling and erythema. Encouraged her to utilize ice packs. We will continue to monitor carefully. Does not appear to be acutely infected as there is no drainage. She is afebrile with a normal white count. Continue with postoperative anticoagulation of 325 milligrams aspirin twice a day Monitor blood pressure and continue on current regimen Catapres, Coreg Continue Lasix twice a day for ongoing diuresis Postoperative hemoglobin has remained stable at 10.5. Electrolytes reviewed this morning are normal. Take to encourage work with PT and OT for ongoing postoperative strengthening of improved function. 12/26/16 She continues to have moderate pain to the right lower extremity along with increasing swelling and ecchymosis. To rule out an acute DVT. We will obtain a venous Doppler of the right lower extremity. She continues on aspirin 325 milligrams twice a day for postoperative anticoagulation. Tylenol and tramadol for pain control Recheck CBC tomorrow morning to follow. Postoperative blood counts. In today to encourage work with PT and OT for ongoing strengthening CANDY SONG MD 12/26/16 2409: Assessment & Plan Plan/Intensity of Service Have independently interviewed and examined pt. Chart reviewed. Case discussed with my KINDERGARTNER. Above care plan developed with my supervision; agree with above. Doing okay. Did have increased pain earlier today-didn't get pain med soon enough. Tolerating therapy. Breathing well. Bowels moving well (refusing MOM and Miralax) Lungs: clear CV: regular MSE: awake alert appropriate Plan: Doppler done-report not back. Will check BMP in am with CBC to monitor potassium (oral KCL on hold) and renal status. Change MiraLAX and MOM to as needed. Encourage continued therapy. Medically stable for IRU floor activities. EVANGELINA DYER APRN December 26, 2016 16:13 CANDY SONG MD December 26, 2016 18:53
[2016-12-26] MEDS ORDERED: MILK OF MAGNESIA 30 ML SUSP PO PRN (18:30)
[2016-12-26] MEDS ORDERED: POLYETHYL.GLYCOL 3350 PACKET 17gm PO PRN (18:30)
--- NOTE | 2016-12-26 19:29 | NUR ---
SHIFT SUMMARY PT HAS BEEN PLEASANT AND COOPERATIVE. HAS BEEN OUT TO DINING ROOM FOR MEALS. AMBULATES WITH FWW AND GAIT BELT. PT WAS INCONTINENT TIMES 2. PT IS ABLE TO MANAGE CLOTHING WITH INCONTINENCE, PT ONLY REQUIRES BRIEF TO BE GIVEN TO HER. ONE OF THOSE INCONTINENCE WAS ALSO AN ACCIDENT.
[2016-12-26 20:59] VITALS: BP_SYST 131; BP_SYST 142; BP_DIAS 69; BP_DIAS 81; PULSE 70; PULSE 82; RESP 16; RESP 18; TEMP 97.8; TEMP 98.3; O2SAT 92; O2SAT 95
[2016-12-26 21:58] VITALS: BP 141/81; PULSE 85; O2SAT 85
[2016-12-26 22:00] VITALS: PULSE 82; RESP 16
--- NOTE | 2016-12-27 03:14 | NUR ---
Chart Check 24 hour chart check completed
--- NOTE | 2016-12-27 05:35 | NUR ---
Summary Alessandra is a pleasant and cooperative patient. She is alert and oriented x three.She reports pain to her right knee which was managed with prn Ultram and farzad Tylenol .She was asleep at reassessment.Polar pack to right knee prior to going to bed.She was continent of bladder and bowel . She was able to manage her clothes and hygiene. Mepilex to her right knee C/D/I.When in bed her siderails are up x two and bed alarms intact.
[2016-12-27 05:57] LABS: BASOPHILS % (AUTO) 0.5 % (0-2); EOSINOPHILS # (AUTO) 0.4 T/MM3 (0-0.5); EOSINOPHILS % (AUTO) 5.3 % (0-4); HCT - HEMATOCRIT 29.7 % (36-46); HGB - HEMOGLOBIN 9.3 GM/DL (12-16); IMMATURE GRANULOCYTE # (AUTO) 0.11 T/MM3 (0.00-0.03); IMMATURE GRANULOCYTE % (AUTO) 1.4 % (0.0-0.5); LYMPHOCYTES # (AUTO) 2.2 T/MM3 (1-4.8); MEAN CORPUSCULAR HGB 28.5 UUG (26-34); MEAN CORPUSCULAR HGB CONC(MCHC 31.3 GM/DL (31-37); MEAN CORPUSCULAR VOLUME 91.1 UM3 (80-100); MEAN PLATELET VOLUME 8.9 UM3 (9.4-12.4); MONOCYTES # (AUTO) 0.8 T/MM3 (0-0.8); MONOCYTES % (AUTO) 10.5 % (0-9.0); NEUTROPHILS #(AUTO)-ABSOLUTE 4.4 T/MM3 (1.8-7.7); NEUTROPHILS % (AUTO) 55.3 % (33-66); RED BLOOD COUNT 3.26 M/MM3 (4.00-5.20)
[2016-12-27 06:04] LABS: ANION GAP 12 MEQ/L (5-15); BUN/CREATININE RATIO 27 RATIO (6-26); CALCIUM 8.8 MG/DL (8.4-10.2); CHLORIDE 97 MEQ/L (98-107); CO2 - CARBON DIOXIDE 30 MEQ/L (22-30); CREATININE 0.9 MG/DL (0.7-1.2); GLOMERULAR FILTRATION RATE 59; GLUCOSE 110 MG/DL (65-110); SODIUM 139 MEQ/L (134-144)
[2016-12-27] MEDS: OMEPRAZOLE 20 MG CAPSULE PO SCH (06:25)
[2016-12-27] MEDS: FUROSEMIDE 20 MG TABLET PO SCH ×2 (06:26→12:17)
[2016-12-27] MEDS: LEVOTHYROXINE 50 MCG TABLET PO SCH (06:26)
[2016-12-27 08:00] VITALS: BP 186/87; PULSE 79; RESP 20; TEMP 97.7; O2SAT 93
--- NOTE | 2016-12-27 08:20 | DI ---
Indication: ITS.REASON: increased swelling and ecchymosis to right lower extremity PROCEDURE: US VENOUS DUPLEX, LOWER EXT RT: Encounter: Initial Comparison: January 27, 2015 Technique: Color Doppler duplex and grayscale sonographic imaging of the right lower extremity was performed. Findings: There is no evidence for acute deep venous thrombosis in the right thigh. Specifically, serial graded compression was performed from the inguinal ligament to the popliteal bifurcation, on the right thigh, demonstrating appropriate compressibility of the deep venous system. In addition, color and pulsed Doppler demonstrate appropriate spontaneous flow, variation with respiration, and augmentation with calf compression. At the ankle, normal flow is identified in the posterior tibial veins; these vessels are also normal in caliber. Impression: No evidence of acute DVT in the right lower limb. .
[2016-12-27] MEDS: CALCIUM 600mg + VIT D 400 TABLET PO SCH (08:44)
[2016-12-27] MEDS: ACETAMINOPHEN 325 MG TABLET PO SCH ×4 (08:44→21:25)
[2016-12-27] MEDS: OMEGA-3 ACID ESTERS 1 G CAPSULE PO SCH (08:45)
[2016-12-27] MEDS: MAGNESIUM OXIDE 400 MG TABLET PO SCH (08:45)
[2016-12-27] MEDS: CARVEDILOL 25 MG TABLET PO SCH ×2 (08:45→17:57)
[2016-12-27] MEDS: ASPIRIN *EC* 325mg TABLET PO SCH ×2 (08:45→21:24)
[2016-12-27] MEDS: MULTIVITAMIN + MINERAL TABLET PO SCH (08:45)
[2016-12-27] MEDS: DOCUSATE SODIUM 100 MG CAPSULE PO SCH ×2 (08:45→21:24)
[2016-12-27] MEDS: MULTIVIT + MINERALS (OPTI-GEN) PO SCH (08:45)
[2016-12-27] MEDS: LOSARTAN 50 MG TABLET PO SCH ×2 (08:46→21:25)
[2016-12-27] MEDS: CLONIDINE 0.1 MG TABLET PO SCH ×2 (08:46→21:24)
--- NOTE | 2016-12-27 13:58 | PDIRUTEAM ---
Multidisciplinary Team Meeting Nursing Hx Incontinence: Yes Bladder Goal: 5 Supervision/Setup Pedraza Y/N: No Bladder Continent or Incontine: Incontinent Incontinent Product Used: Pull-up Number of Times Incontinent of: 0 Cleaning Ability-Bladder: 5 Supervision/Setup Bladder Incontinence Managemen: 3 Moderate Assistance Bowel Goal: 5 Supervision/Setup Colostomy Y/N: No Bowel Incontinent/Continent: Incontinent Bowel Number of Accidents: 0 Number of times Incontinent of: 0 Cleaning Ability-Bowel: 5 Supervision/Setup Bowel Incontinence Management: 1 Total Assistance Toileting Ability: 6 Modified Ransom Vital Signs Vital Signs Date Time Temp Pulse Resp B/P Pulse Ox O2 Delivery O2 Flow Rate FiO2 12/27/16 08:00 79 20 12/27/16 08:00 97.7 186/87 93 Room Air Current Medications Current Medications Medications (Trade) Dose Ordered Sig/Patrick Route PRN Reason Start Time Stop Time Status Last Admin Dose Admin Acetaminophen (Tylenol Regular Strength) 650 mg QID PO 12/18/16 21:00 12/27/16 12:18 Aspirin (Ecotrin) 325 mg BID PO 12/18/16 21:00 12/27/16 08:45 Calcium/Vitamin D (Caltrate + D) 1 tab DAILY PO 12/19/16 09:00 12/27/16 08:44 Carvedilol (Coreg) 25 mg BIDWM PO 12/19/16 08:00 12/27/16 08:45 Clonidine HCl (Catapres) 0.05 mg BID PO 12/18/16 21:00 12/27/16 08:46 Docusate Sodium (Colace) 100 mg BID PO 12/18/16 21:00 12/27/16 08:45 Furosemide (Lasix) 20 mg BID PO 12/18/16 21:00 12/19/16 08:28 DC 12/18/16 20:46 Levothyroxine Sodium (Synthroid) 50 mcg ACB PO 12/19/16 06:30 12/27/16 06:26 Losartan Potassium (COZAAR 50 mg) 50 mg BID PO 12/18/16 21:00 12/27/16 08:46 Magnesium Hydroxide (Mom) 30 ml 0800 PO 12/19/16 08:00 12/26/16 18:31 DC 12/22/16 08:34 Magnesium Oxide (Magox) 400 mg DAILY PO 12/19/16 09:00 12/27/16 08:45 Multivitamins/ Minerals (Therapeutic - M) 1 tab DAILY PO 12/19/16 09:00 12/27/16 08:45 Ndqip-7-Ghri Ethyl Esters (Lovaza) 1 g DAILY PO 12/19/16 09:00 12/27/16 08:45 Omeprazole (Prilosec) 20 mg ACB PO 12/19/16 06:30 12/27/16 06:25 Polyethylene Glycol (Miralax) 17 g DAILY PO 12/19/16 09:00 12/26/16 18:27 DC 12/25/16 09:04 Potassium Chloride (Kdur) 20 meq BIDWM PO 12/18/16 21:00 Future Hold 12/20/16 08:14 Tramadol HCl (Ultram) 1-2 TABLETS Q6H PRN PO PAIN 12/18/16 18:00 12/26/16 22:02 Multivitamins/ Minerals (Vision) 1 tab DAILY PO 12/19/16 09:00 12/27/16 08:45 Scopolamine HBr (Transderm-Scop Patch Removal) 1 removal Q3D TD 12/21/16 07:45 12/21/16 07:47 DC 12/21/16 09:11 Furosemide (Lasix) 20 mg BID PO 12/19/16 09:00 12/19/16 09:09 DC 12/19/16 08:32 Furosemide (Lasix) 20 mg BID. PO 12/19/16 17:00 12/22/16 10:52 DC 12/22/16 08:37 Furosemide (Lasix) 20 mg BID.. PO 12/22/16 14:00 12/24/16 12:00 DC 12/24/16 08:48 Furosemide (Lasix) 20 mg 0630,12 PO 12/24/16 12:00 12/27/16 12:17 Comments Working well with staff. Has been lost at night and cant find her way around. Physical Therapy Bed Transfer Ability: 5 Supervision/Setup Bed Transfer Assistance Needed: 1 Person Chair Transfer Ability: 5 Supervision/Setup Chair Transfer Assistance Need: 1 Person Chair FIM Score Reason: REQUIRES CUEING TO MAINTAIN SAFETY Overall Wheelchair Transfer Ab: 4 Minimal Assistance Wheelchair Transfer Assistance: 1 Person Overall Toilet / Commode Trans: 6 Modified Ransom Ambulation Ability: 5 Supervision/Setup Ambulation Assistance Needed: 1 Person Walk FIM Score Reason: CGA to SBA Ambulation Distance: 268 Occupational Therapy Grooming Ability: 6 Modified Ransom Bathing Ability: 5 Supervision/Setup Upper Body Dressing Ability: 6 Modified Ransom Lower Body Dressing Ability: 6 Modified Ransom Lower Body Dressing Assistance: 1 Person Toileting Assistance Needed: 1 Person Toileting FIM Score Reason: needs railing/walker to perform hygiene Comments Has needed equipment except for 2 wheel walker. Reeval friday for possible d/c after. Homehealth and walker recommended. Barriers to d/c: pain , endurance. Care Plan Condition at time of discharge: Fair IRU Discharge Disposition: Home Health Service Interventions/Goals Has needed equipment except for 2 wheel walker. Reeval friday for possible d/c after. Homehealth and walker recommended. Barriers to d/c: pain , endurance. balance. D/c with front wheel walker. ANITA LEE MD December 27, 2016 13:56
[2016-12-27 16:08] VITALS: BP 129/67; PULSE 81; RESP 18; TEMP 98.2; O2SAT 94
--- NOTE | 2016-12-27 18:44 | NUR ---
Shift summary Patient ambulating with FWW, gait belt, min assist. Dressing to right knee clean, dry and intact. Polar savlador to right knee. Incontinent of urine x1 this shift. Min assist for incontinence. Transfers with min to stand by assist. Patient wears glasses. Scheduled tylenol for pain.
[2016-12-27 19:56] VITALS: PULSE 81; RESP 18
[2016-12-27 20:01] VITALS: BP 139/70; PULSE 85; RESP 18; TEMP 98.9; O2SAT 95
[2016-12-27] MEDS: TRAMADOL 50 MG TABLET PO PRN (21:25)
--- NOTE | 2016-12-28 03:57 | NUR ---
Status Patient is alert and oriented times three, pleasant and cooperative. She is doing well with transfers and ambulating to restroom and back with FWW and gait belt and supervision. She is providing her own vaishnavi care and managing her own clothing. She uses sock assist tool and human capital analyst well. Polar pack used a good portion of the night. SCDs are on. She requested PRN pain medication at HS, rating her pain at 2/10, but reporting it increases when she gets up. Dressing to knee is clean dry and intact. No swelling or erythema or heat to area. Leg elevated with bed and a pillow. Side rails are up times two, bed alarm on and call light within reach.
--- NOTE | 2016-12-28 04:57 | NUR ---
Chart Check 24 hour chart check completed
[2016-12-28] MEDS: FUROSEMIDE 20 MG TABLET PO SCH ×2 (06:33→12:12)
[2016-12-28] MEDS: LEVOTHYROXINE 50 MCG TABLET PO SCH (06:34)
[2016-12-28] MEDS: OMEPRAZOLE 20 MG CAPSULE PO SCH (06:34)
[2016-12-28 08:00] VITALS: BP 140/71; PULSE 82; RESP 16; TEMP 98.6; O2SAT 94
[2016-12-28 08:20] VITALS: PULSE 82; RESP 16
[2016-12-28] MEDS: MAGNESIUM OXIDE 400 MG TABLET PO SCH (08:38)
[2016-12-28] MEDS: MULTIVIT + MINERALS (OPTI-GEN) PO SCH (08:39)
[2016-12-28] MEDS: LOSARTAN 50 MG TABLET PO SCH ×2 (08:39→21:15)
[2016-12-28] MEDS: ACETAMINOPHEN 325 MG TABLET PO SCH ×4 (08:39→21:15)
[2016-12-28] MEDS: CLONIDINE 0.1 MG TABLET PO SCH ×2 (08:40→21:18)
[2016-12-28] MEDS: ASPIRIN *EC* 325mg TABLET PO SCH ×2 (08:40→21:15)
[2016-12-28] MEDS: MULTIVITAMIN + MINERAL TABLET PO SCH (08:40)
[2016-12-28] MEDS: CALCIUM 600mg + VIT D 400 TABLET PO SCH (08:40)
[2016-12-28] MEDS: CARVEDILOL 25 MG TABLET PO SCH ×2 (08:40→17:28)
[2016-12-28] MEDS: DOCUSATE SODIUM 100 MG CAPSULE PO SCH ×2 (08:43→21:15)
[2016-12-28] MEDS: OMEGA-3 ACID ESTERS 1 G CAPSULE PO SCH (09:34)
[2016-12-28] MEDS: TRAMADOL 50 MG TABLET PO PRN (09:34)
--- NOTE | 2016-12-28 14:21 | PNPDOC ---
Subjective Date DATE: 12/28/16 TIME: 14:12 Subjective Alessandra is doing very well. She was pleasant and very conversational. Her knee pain is minimal now that she's able to sit and relax. It was hurting much more during therapy this morning. She reports that she was constipated initially but that has resolved, and she's having a daily BM. She denies any problems breathing. No abdominal pain or nausea. Most of her conversation was focused on Rayshawn burgos - she stated that she really appreciated having him as her PCP. Objective Vital Signs Vital signs Vital Signs Date Time Temp Pulse Resp B/P Pulse Ox O2 Delivery O2 Flow Rate FiO2 12/28/16 08:20 82 16 12/28/16 08:00 98.6 140/71 94 Room Air Telemetry Rhythm: Sinus Rhythm Height (Feet): 5 Height (Inches): 2.00 Weight (Kilograms): 74.800 General General Appearance: Alert, Orientated x 3, Well Nourished, Well Developed, No Acute Distress Eyes (Brief) Eyes: FOUND: PERRL, NOT FOUND: scleral icterus ENMT (Brief) ENMT: FOUND: mucosa moist, NOT FOUND: pharnyx erythema Respiratory (Brief) Respiratory: FOUND: clear all lozano, equal bilaterally Cardiovascular (Brief) Cardiac: FOUND: murmur (3/6), regular rate, regular rhythm Abdomen (Brief) Abdominal: FOUND: BS normo active x4, soft, NOT FOUND: distended, tender Extremities (Brief) Extremity : Extremity Finding: FOUND: discoloration (ecchymosis right leg), edema ( postop Rt leg) Integumentary (Brief) Integumentary: FOUND: dry, pink, warm Psychiatric (Brief) Psychiatric: FOUND: alert, attentive, normal affect, oriented Laboratory Laboratory Laboratory Tests 12/27/16 05:26 Laboratory Tests 12/27/16 05:26 Assessment & Plan Problems: (1) Status post total right knee replacement Status: Acute Assessment & Plan: 12/17/[address] Crowder. (2) Normocytic anemia Status: Acute Assessment & Plan: most likely post-op related. (3) Pulmonary HTN Status: Chronic (4) Diastolic CHF, chronic Status: Chronic (5) Hypertension Status: Chronic (6) Hyperlipemia Status: Chronic (7) Hypothyroidism Status: Chronic (8) GERD (gastroesophageal reflux disease) Status: Chronic Qualifiers: Esophagitis presence: esophagitis presence not specified Qualified Codes: K21.9 - Gastro-esophageal reflux disease without esophagitis (9) Osteoarthritis Status: Chronic Qualifiers: Osteoarthritis location: multiple joints Osteoarthritis type: primary Qualified Codes: M15.0 - Primary generalized (osteo)arthritis (10) Incontinence Status: Chronic (11) Constipation Status: Chronic Qualifiers: Constipation type: slow transit constipation Qualified Codes: K59.01 - Slow transit constipation (12) Allergic rhinitis Status: Chronic Qualifiers: Allergic rhinitis trigger: unspecified Allergic rhinitis seasonality: unspecified seasonality Qualified Codes: J30.9 - Allergic rhinitis, unspecified (13) Obesity (BMI 30-39.9) Status: Chronic Plan/Intensity of Service Venous doppler was neg for DVT. Labs done yesterday - hgb down from 10.5 to 9.3. Will repeat next week. Chemistry panel was unremarkable. Otherwise medically stable. DVT Prophylaxis: other (ASA) Code Status Full Code Hospital Course Summary Disclaimer The hospital course summary below is not to be considered part of the above Progress Note. Hospital Course Summary 12/22/16 Overall, Alessandra is doing well. She does voice some mild concern about the right lower extremity swelling and erythema. Encouraged her to utilize ice packs. We will continue to monitor carefully. Does not appear to be acutely infected as there is no drainage. She is afebrile with a normal white count. Continue with postoperative anticoagulation of 325 milligrams aspirin twice a day Monitor blood pressure and continue on current regimen Catapres, Coreg Continue Lasix twice a day for ongoing diuresis Postoperative hemoglobin has remained stable at 10.5. Electrolytes reviewed this morning are normal. Take to encourage work with PT and OT for ongoing postoperative strengthening of improved function. 12/26/16 She continues to have moderate pain to the right lower extremity along with increasing swelling and ecchymosis. To rule out an acute DVT. We will obtain a venous Doppler of the right lower extremity. She continues on aspirin 325 milligrams twice a day for postoperative anticoagulation. Tylenol and tramadol for pain control Recheck CBC tomorrow morning to follow. Postoperative blood counts. In today to encourage work with PT and OT for ongoing strengthening 12/28/16 Venous doppler was neg for DVT. Labs done yesterday - hgb down from 10.5 to 9.3. Will repeat next week. Chemistry panel was unremarkable. Otherwise medically stable. TOMAS MELENDEZ APRN December 28, 2016 14:16
[2016-12-28 16:00] VITALS: BP 140/69; PULSE 75; RESP 16; TEMP 98.1; O2SAT 96
--- NOTE | 2016-12-28 17:59 | NUR ---
SHIFT SUMMARY PT HAS BEEN PLEASANT AND COOPERATIVE. HAS BEEN OUT TO DINING ROOM FOR MEALS. PT AMBULATES WITH FWW AND GAIT BELT, STAND BY ASSIST. PT DID NEED REMINDED TO WAIT FOR STAFF BEFORE STANDING. PT WAS TOLD EVEN THOUGH SHE IS GOING HOME SOON A STAFF MEMBER STILL NEEDS TO BE PRESENT.
--- NOTE | 2016-12-28 19:00 | NUR ---
Report: Report received from off going nurse.
[2016-12-28 21:12] VITALS: BP 116/58; PULSE 72; RESP 20; TEMP 98.3; O2SAT 96
[2016-12-29 00:02] VITALS: PULSE 72; RESP 20
--- NOTE | 2016-12-29 01:00 | NUR ---
Summary: Report given to off going nurse. VSS. Alessandra is a pleasant and cooperative patient. She is alert and oriented x three. She is able to make her needs known.Appropriate use of the call light.Able to take meds whole.She reports pain 2/10,scheduled Tylenol given .Polar pack to right knee prior to going to bed.She has been continent of bladder. She was able to manage her clothes and hygiene. Ambulates and transfers with fww gb and sba.Gait is steady.Mepilex to her right knee C/D/I.When in bed her siderails are up x two and bed alarms intact.
--- NOTE | 2016-12-29 05:47 | NUR ---
SHIFT SUMMARY Alessandra has rested through the night, awakening to use bathroom several times. Polar Adllas to right knee during night for pain relief. Incont. x 1 of bladder. Ambulates with CGA using FWW and gait belt. Performs own vaishnavi care, clothing managment, bed mobility. Addendum: 12/29/16 at 0614 by ABNER VASQUEZ RN 2 bladder accidents this noc. Incont. x 2.
[2016-12-29] MEDS: OMEPRAZOLE 20 MG CAPSULE PO SCH (06:25)
[2016-12-29] MEDS: FUROSEMIDE 20 MG TABLET PO SCH ×2 (06:25→11:57)
[2016-12-29] MEDS: LEVOTHYROXINE 50 MCG TABLET PO SCH (06:25)
[2016-12-29 08:00] VITALS: PULSE 73; RESP 12
[2016-12-29 08:10] VITALS: BP 160/89; PULSE 73; RESP 12; TEMP 98; O2SAT 97
[2016-12-29] MEDS: OMEGA-3 ACID ESTERS 1 G CAPSULE PO SCH (09:05)
[2016-12-29] MEDS: LOSARTAN 50 MG TABLET PO SCH ×2 (09:06→22:03)
[2016-12-29] MEDS: ASPIRIN *EC* 325mg TABLET PO SCH ×2 (09:06→22:03)
[2016-12-29] MEDS: TRAMADOL 50 MG TABLET PO PRN ×2 (09:06→22:02)
[2016-12-29] MEDS: CALCIUM 600mg + VIT D 400 TABLET PO SCH (09:06)
[2016-12-29] MEDS: ACETAMINOPHEN 325 MG TABLET PO SCH ×4 (09:06→22:02)
[2016-12-29] MEDS: CLONIDINE 0.1 MG TABLET PO SCH ×2 (09:07→22:03)
[2016-12-29] MEDS: MULTIVIT + MINERALS (OPTI-GEN) PO SCH (09:07)
[2016-12-29] MEDS: CARVEDILOL 25 MG TABLET PO SCH ×2 (09:07→17:41)
[2016-12-29] MEDS: MAGNESIUM OXIDE 400 MG TABLET PO SCH (09:07)
[2016-12-29] MEDS: MULTIVITAMIN + MINERAL TABLET PO SCH (09:07)
[2016-12-29] MEDS: DOCUSATE SODIUM 100 MG CAPSULE PO SCH ×2 (09:07→22:03)
[2016-12-29 15:56] VITALS: BP 156/67; PULSE 75; RESP 12; TEMP 97.8; O2SAT 96
[2016-12-29 19:10] VITALS: BP 139/66; PULSE 79; RESP 20; TEMP 98.2; O2SAT 94
--- NOTE | 2016-12-29 21:57 | PNPDOC ---
IRU Subjective Date DATE: 12/29/16 TIME: 21:54 Subjective Working well with PT and OT. She rested today. Ate in commons. Tired and sore, but grateful for chance to get strengthened so she can return home. IRU Objective Vital Signs Vital signs Vital Signs Date Time Temp Pulse Resp B/P Pulse Ox O2 Delivery O2 Flow Rate FiO2 12/29/16 15:56 97.8 75 12 156/67 96 Room Air Telemetry Rhythm: Sinus Rhythm Height (Feet): 5 Height (Inches): 2.00 Weight (Kilograms): 75.100 General General Appearance: Alert, Orientated x 2 Respiratory (Brief) Respiratory: FOUND: clear all lozano, equal bilaterally Cardiovascular (Brief) Cardiac: FOUND: regular rate, regular rhythm Assessment & Plan Problems: (1) Hypertension Status: Chronic Assessment & Plan: managed by medical. (2) Status post total right knee replacement Status: Acute Assessment & Plan: incision stable. Pt improving strength and balance. Stamina also improving. Reeval this week. (3) Hypernatremia Status: Acute Code Status Full Code Interventions to Obtain Goals PT Treatment Plan: Therapeutic Exercise, Gait Training, Functional Activities , Patient/Family Education OT Treatment Plan: ADL's (basic care), Ther. Exercise for ADL's, UE Functional Training, Balance Training, Pt./Family Education, IADL's Hospital Course Summary Disclaimer The hospital course summary below is not to be considered part of the above Progress Note. Hospital Course Summary 12/22/16 Overall, Alessandra is doing well. She does voice some mild concern about the right lower extremity swelling and erythema. Encouraged her to utilize ice packs. We will continue to monitor carefully. Does not appear to be acutely infected as there is no drainage. She is afebrile with a normal white count. Continue with postoperative anticoagulation of 325 milligrams aspirin twice a day Monitor blood pressure and continue on current regimen Catapres, Coreg Continue Lasix twice a day for ongoing diuresis Postoperative hemoglobin has remained stable at 10.5. Electrolytes reviewed this morning are normal. Take to encourage work with PT and OT for ongoing postoperative strengthening of improved function. 12/26/16 She continues to have moderate pain to the right lower extremity along with increasing swelling and ecchymosis. To rule out an acute DVT. We will obtain a venous Doppler of the right lower extremity. She continues on aspirin 325 milligrams twice a day for postoperative anticoagulation. Tylenol and tramadol for pain control Recheck CBC tomorrow morning to follow. Postoperative blood counts. In today to encourage work with PT and OT for ongoing strengthening 12/28/16 Venous doppler was neg for DVT. Labs done yesterday - hgb down from 10.5 to 9.3. Will repeat next week. Chemistry panel was unremarkable. Otherwise medically stable. ANITA LEE MD December 29, 2016 21:57
[2016-12-29 22:00] VITALS: PULSE 79; RESP 20
--- NOTE | 2016-12-30 01:02 | NUR ---
Chart Check 24 hour chart check completed
[2016-12-30] MEDS: LEVOTHYROXINE 50 MCG TABLET PO SCH (06:02)
[2016-12-30] MEDS: OMEPRAZOLE 20 MG CAPSULE PO SCH (06:02)
[2016-12-30] MEDS: FUROSEMIDE 20 MG TABLET PO SCH ×2 (06:04→12:24)
--- NOTE | 2016-12-30 06:20 | NUR ---
Summary VSS. Alessandra is a pleasant and cooperative patient. She is alert and oriented x three. She is able to make her needs known.Appropriate use of the call light.Able to take meds whole.Scheduled Tylenol given along with Ultram 50 mg for discomfort at hs .Polar pack to right knee thru the night .She has been incontinent of bladder x two. She was able to manage her clothes and hygiene. Ambulates and transfers with fww gb and sba.Gait is steady.Mepilex to her right knee C/D/I.When in bed her siderails are up x two and bed alarms intact
[2016-12-30 07:40] VITALS: BP 176/97; PULSE 77; RESP 16; TEMP 97.5; O2SAT 97
[2016-12-30] MEDS: ACETAMINOPHEN 325 MG TABLET PO SCH ×4 (09:28→21:58)
[2016-12-30] MEDS: MAGNESIUM OXIDE 400 MG TABLET PO SCH (09:28)
[2016-12-30] MEDS: CALCIUM 600mg + VIT D 400 TABLET PO SCH (09:28)
[2016-12-30] MEDS: ASPIRIN *EC* 325mg TABLET PO SCH ×2 (09:29→21:54)
[2016-12-30] MEDS: OMEGA-3 ACID ESTERS 1 G CAPSULE PO SCH (09:29)
[2016-12-30] MEDS: LOSARTAN 50 MG TABLET PO SCH ×2 (09:29→21:55)
[2016-12-30] MEDS: CLONIDINE 0.1 MG TABLET PO SCH ×2 (09:29→21:54)
[2016-12-30] MEDS: MULTIVITAMIN + MINERAL TABLET PO SCH (09:29)
[2016-12-30 09:30] VITALS: BP 156/80; PULSE 80; RESP 18; TEMP 97.8; O2SAT 97
[2016-12-30] MEDS: CARVEDILOL 25 MG TABLET PO SCH ×2 (09:30→17:55)
[2016-12-30] MEDS: DOCUSATE SODIUM 100 MG CAPSULE PO SCH ×2 (09:30→21:54)
[2016-12-30] MEDS: MULTIVIT + MINERALS (OPTI-GEN) PO SCH (09:30)
--- NOTE | 2016-12-30 13:12 | NUR ---
[employer] FAXED ORDERS FOR FRONT WHEELED WALKER TO [facility]. Addendum: 12/30/16 at 1313 by SARANYA KENNEDY THIS WORKER REQUESTED THAT THE WALKER BE DELIVERED TO PT'S ROOM.
--- NOTE | 2016-12-30 13:26 | PNPDOC ---
Subjective Date DATE: 12/30/16 TIME: 13:16 Subjective Alessandra is seen today in follow up s/p right knee. She is doing good and she is excited that she will be able to be discharged tomorrow. Pain has been well controlled of Ultram. Denies having chest pain, shortness of breath or GI complaints. She does inquire about having her toenails trimmed prior to discharge. Objective Vital Signs Vital signs Vital Signs Date Time Temp Pulse Resp B/P Pulse Ox O2 Delivery O2 Flow Rate FiO2 12/30/16 09:30 80 18 12/30/16 09:30 97.8 156/80 97 Room Air Telemetry Rhythm: Sinus Rhythm Height (Feet): 5 Height (Inches): 2.00 Weight (Kilograms): 74.400 General General Appearance: Alert, Orientated x 3, Cooperative, No Acute Distress Eyes (Brief) Eyes: FOUND: EOMI ENMT (Brief) ENMT: FOUND: mucosa moist, normal dentition, NOT FOUND: pharnyx erythema Neck (Brief) Neck: FOUND: midline, NOT FOUND: adenopathy, carotid bruits, tracheal deviation Respiratory (Brief) Respiratory: FOUND: clear all lozano, equal bilaterally, NOT FOUND: wheezes Cardiovascular (Brief) Cardiac: FOUND: regular rate, regular rhythm, NOT FOUND: murmur, pedal edema Capillary Refill: <2 sec Abdomen (Brief) Abdominal: FOUND: BS normo active x4, soft, NOT FOUND: distended, tender Lymphatic (Brief) Lymphatic: NOT FOUND: adenopathy Musculoskeletal (Brief) Musculoskeletal: FOUND: tenderness (Right knee pain- Post-op) Integumentary (Brief) Integumentary: FOUND: dry, pink, warm Neurologic (Brief) Neurological: FOUND: cranial 2-12 intact Psychiatric (Brief) Psychiatric: FOUND: alert, attentive, normal affect, oriented Assessment & Plan Problems: (1) Status post total right knee replacement Status: Acute Assessment & Plan: 12/17/[address] Crowder. (2) Normocytic anemia Status: Acute Assessment & Plan: most likely post-op related. 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 Asked nursing staff to find out about toenail trimming policy for tomorrow Labs have remained stable Pain is controlled on Ultram Hopeful for discharge tomorrow Code Status Full Code Hospital Course Summary Disclaimer The hospital course summary below is not to be considered part of the above Progress Note. Hospital Course Summary 12/22/16 Overall, Alessandra is doing well. She does voice some mild concern about the right lower extremity swelling and erythema. Encouraged her to utilize ice packs. We will continue to monitor carefully. Does not appear to be acutely infected as there is no drainage. She is afebrile with a normal white count. Continue with postoperative anticoagulation of 325 milligrams aspirin twice a day Monitor blood pressure and continue on current regimen Catapres, Coreg Continue Lasix twice a day for ongoing diuresis Postoperative hemoglobin has remained stable at 10.5. Electrolytes reviewed this morning are normal. Take to encourage work with PT and OT for ongoing postoperative strengthening of improved function. 12/26/16 She continues to have moderate pain to the right lower extremity along with increasing swelling and ecchymosis. To rule out an acute DVT. We will obtain a venous Doppler of the right lower extremity. She continues on aspirin 325 milligrams twice a day for postoperative anticoagulation. Tylenol and tramadol for pain control Recheck CBC tomorrow morning to follow. Postoperative blood counts. In today to encourage work with PT and OT for ongoing strengthening 12/28/16 Venous doppler was neg for DVT. Labs done yesterday - hgb down from 10.5 to 9.3. Will repeat next week. Chemistry panel was unremarkable. Otherwise medically stable. 5/29 Medically Alessandra is doing well. Asked nursing staff to find out about toenail trimming policy for tomorrow Labs have remained stable Pain is controlled on Ultram Hopeful for discharge tomorrow EVANGELINA DYER APRN December 30, 2016 13:23
[2016-12-30 16:35] VITALS: BP 125/63; PULSE 74; RESP 18; TEMP 98; O2SAT 95
--- NOTE | 2016-12-30 18:27 | NUR ---
Summary Pt. is very pleasant. VS's stable. Pt. is on RA. She has denied n/v. Pt. is a supervision-minimal assist transfer x1 with FWW and gait belt. Pt. has ambulated to all meals. She is incontinent of bladder at times. I/O adequate. Pt. has been rating ache pain in right knee a 3-11/11. She is on scheduled Tylenol. Please see eMAR. Re-positioning and polar pack encouraged. Right knee mepilex dressing C/D/I. Bilateral pedal pulses palpable. Will pass on report to night baker.
[2016-12-30 19:33] VITALS: BP 143/67; PULSE 79; RESP 16; TEMP 97.6; O2SAT 95
[2016-12-30 21:45] VITALS: PULSE 79; RESP 16
[2016-12-30] MEDS: TRAMADOL 50 MG TABLET PO PRN (21:58)
--- NOTE | 2016-12-31 00:46 | NUR ---
Chart Check 24 hour chart check completed
--- NOTE | 2016-12-31 02:48 | NUR ---
Summary Vital signs are stable. Alessandra is pleasant and cooperative with all cares. She is alert and oriented x three. She is able to make her needs known and uses the call light appropriately. She takes her meds whole. She took scheduled Tylenol 650mg given along with Ultram 50 mg for discomfort at hs .Polar pack to right knee used thru the night. She is able to manage her clothes and hygiene after urinating and after bm. She ambulates and transfers with fww gb and sba. Her gait is steady. Mepilex to her right knee is C/D/I. When in bed her siderails are up x two and bed alarms intact.
[2016-12-31] MEDS: LEVOTHYROXINE 50 MCG TABLET PO SCH (04:46)
[2016-12-31] MEDS: FUROSEMIDE 20 MG TABLET PO SCH ×2 (04:47→12:09)
[2016-12-31] MEDS: OMEPRAZOLE 20 MG CAPSULE PO SCH (04:47)
[2016-12-31 07:13] LABS: HGB - HEMOGLOBIN 10.7 GM/DL (12-16)
[2016-12-31 07:40] VITALS: BP 176/97; PULSE 77; RESP 16; TEMP 97.5; O2SAT 97
[2016-12-31 08:00] VITALS: PULSE 77; RESP 18
[2016-12-31] MEDS: DOCUSATE SODIUM 100 MG CAPSULE PO SCH (08:57)
[2016-12-31] MEDS: OMEGA-3 ACID ESTERS 1 G CAPSULE PO SCH (08:57)
[2016-12-31] MEDS: ACETAMINOPHEN 325 MG TABLET PO SCH ×2 (08:57→12:09)
[2016-12-31] MEDS: CLONIDINE 0.1 MG TABLET PO SCH (08:57)
[2016-12-31] MEDS: ASPIRIN *EC* 325mg TABLET PO SCH (08:58)
[2016-12-31] MEDS: CARVEDILOL 25 MG TABLET PO SCH (08:58)
[2016-12-31] MEDS: MAGNESIUM OXIDE 400 MG TABLET PO SCH (08:58)
[2016-12-31] MEDS: MULTIVIT + MINERALS (OPTI-GEN) PO SCH (08:58)
[2016-12-31] MEDS: MULTIVITAMIN + MINERAL TABLET PO SCH (08:58)
[2016-12-31] MEDS: LOSARTAN 50 MG TABLET PO SCH (08:58)
[2016-12-31] MEDS: CALCIUM 600mg + VIT D 400 TABLET PO SCH (08:58)
--- NOTE | 2016-12-31 09:40 | NUR ---
CM DC PLANNED FOR TODAY. SPOKE WITH PT ABOUT THIS, SHE WAS AGREEABLE. REVIEWED IM WITH PT; SHE SIGNED WITH NO QUESTIONS/CONCERNS. REVIEWED IRU POC; SHE SIGNED WITH NO QUESTIONS. REVIEWED DME; UPDATED HER THAT WALKER WILL BE DELIVERED TO HER ROOM AROUND NOON (PER PHONE CALL WITH SIRIA AT [facility]). SHE SAID SHE WILL ALSO BORROW HER DAUGHTER'S WALKER, SO SHE WILL HAVE 2, TO MAKE IT EASIER AT HOME (ONE WILL STAY IN THE BATHROOM). SHE SAID SHE WILL ALSO BE BORROWING HER DAUGHTER'S RAISED TOILET SEAT. PT HAD NO FURTHER DME NEEDS. REVIEWED HOME HEALTH; SHE HAD NO PREFERENCE, EXCEPT ONE IN [place]OWN. PROVIDED LIST, REVIEWED LOCAL ONES; SHE STILL HAD NO PREFERENCE. DISCUSSED [facility], DISCLOSED THE FINANCIAL RELATIONSHIP; SHE WAS AGREEABLE TO THIS. SHE SAID SHE WILL CALL HER SPOUSE NOW, TO PICK HER UP LATER TODAY. SHE HAD NO FURTHER QUESTIONS/NEEDS REGARDING DC. Addendum: 12/31/16 at 0944 by SARANYA KENNEDY Amended: Links added.
--- NOTE | 2016-12-31 10:48 | DSPDOC ---
General Date Date DATE: 12/31/16 TIME: 10:45 Attending Physician Walter Lee MD Admitting Physician Walter Lee MD Consulting Physician Luis Husain MD Admitting Diagnosis S/Pleft total knee with functional deficits Discharge Diagnosis (1) Allergic rhinitis (2) Osteoarthritis (3) Incontinence (4) Constipation (5) History of skin cancer (6) Diastolic CHF, chronic (7) Hypertension (8) GERD (gastroesophageal reflux disease) (9) Obesity (BMI 30-39.9) (10) Hyperlipemia (11) Hypothyroidism (12) Pulmonary HTN Laboratory Laboratory Tests Test 12/31/16 06:55 Hemoglobin 10.7GM/DL (12-16) History of Present Illness 86-year-old female admitted status post right total knee replacement. She is in need of strengthening due to the surgery and conditioning before hand. However she did have uncontrolled hypertension after her surgery was completed. She is requiring 4 different blood pressure medication and is still being adjusted by medical. She is not appropriate to be discharged due to the instability of her blood pressure. She is appropriate to be admitted to IRU for continued therapy and control blood pressure. Hospital Course 12/22/16 Overall, Alessandra is doing well. She does voice some mild concern about the right lower extremity swelling and erythema. Encouraged her to utilize ice packs. We will continue to monitor carefully. Does not appear to be acutely infected as there is no drainage. She is afebrile with a normal white count. Continue with postoperative anticoagulation of 325 milligrams aspirin twice a day Monitor blood pressure and continue on current regimen Catapres, Coreg Continue Lasix twice a day for ongoing diuresis Postoperative hemoglobin has remained stable at 10.5. Electrolytes reviewed this morning are normal. Take to encourage work with PT and OT for ongoing postoperative strengthening of improved function. 12/26/16 She continues to have moderate pain to the right lower extremity along with increasing swelling and ecchymosis. To rule out an acute DVT. We will obtain a venous Doppler of the right lower extremity. She continues on aspirin 325 milligrams twice a day for postoperative anticoagulation. Tylenol and tramadol for pain control Recheck CBC tomorrow morning to follow. Postoperative blood counts. In today to encourage work with PT and OT for ongoing strengthening 12/28/16 Venous doppler was neg for DVT. Labs done yesterday - hgb down from 10.5 to 9.3. Will repeat next week. Chemistry panel was unremarkable. Otherwise medically stable. 12/30 Medically Alessandra is doing well. Asked nursing staff to find out about toenail trimming policy for tomorrow Labs have remained stable Pain is controlled on Ultram Hopeful for discharge tomorrow 12/31/16 Stable for discharge both medically and physically. Improved FIMs and safe to be home with supervision. D/c with 2 wheel walker. Follow up with PCP, use home health for PT and OT. Walter Lee MD Problems: (1) Status post total right knee replacement Status: Acute Assessment & Plan: 12/17/[address] Crowder. (2) Normocytic anemia Status: Acute Assessment & Plan: most likely post-op related. (3) Pulmonary HTN Status: Chronic (4) Diastolic CHF, chronic Status: Chronic (5) Hypertension Status: Chronic (6) Hyperlipemia Status: Chronic (7) Hypothyroidism Status: Chronic (8) GERD (gastroesophageal reflux disease) Status: Chronic (9) Osteoarthritis Status: Chronic (10) Incontinence Status: Chronic (11) Constipation Status: Chronic (12) Allergic rhinitis Status: Chronic (13) Obesity (BMI 30-39.9) Status: Chronic Code Status Full Code Home Meds Active Scripts Docusate Sodium (Colace) 100 Mg Capsule, 100 MG PO BID, #60 CAP Prov:NICHOLE WEATHERS 12/18/16 Polyethylene Glycol 3350 (Healthylax) 17 Gm Powd.pack, 17 G PO DAILY for 30 Days Prov:NICHOLE WEATHERS 12/18/16 Magnesium Hydroxide (Milk of Magnesia) 400 Mg/5 Ml Oral.susp, 30 ML PO 0800 for 30 Days Prov:NICHOLE WEATHERS 12/18/16 Tramadol HCl (Ultram) 50 Mg Tablet, 50-100 MG PO Q6H Y for PAIN, #50 TAB Prov:NICHOLE WEATHERS 12/18/16 Aspirin *EC* (Aspirin EC) 325 Mg Tablet., 325 MG PO BID, #84 TAB Take this for blood clot prevention for 6 weeks. Prov:NICHOLE WEATHERS 12/18/16 Acetaminophen (Tylenol) 325 Mg Tablet, 650 MG PO QID, #50 TAB Prov:NICHOLE WEATHERS 12/18/16 Reported Medications Losartan Potassium (Cozaar) 50 Mg Tablet, 50 MG PO BID, TAB 1 TAB PO IN AM, AND 0.5 TAB IN PM 11/28/16 Levothyroxine Sodium (Levothyroxine Sodium) 50 Mcg Tablet, 50 MCG PO ACB, TAB Once daily before breakfast. 11/11/16 Fluticasone Propionate (Flonase Allergy Relief 50 mcg/actuation Nasal) 9.9 Ml [place].susp, 2 SPRAY EA NOSTRIL DAILY Y for ALLERY SYMPTOMS 11/11/16 Vit A/Vit C/Vit E/Zinc/Copper (Preservision Areds Tablet) 1 Each Tablet, 1 TAB PO DAILY 11/11/16 [place]-3 Fatty Acids/Fish Oil ([place] 3 1,000 mg Softgel) 1 Each Capsule, 2 CAP PO DAILY 11/11/16 Magnesium Oxide (Magnesium) 500 Mg Capsule, 500 MG PO DAILY, CAP ON FRI, FRI, Friday11/11/16 Furosemide (Lasix) 40 Mg Tablet, 0.5 TAB PO BID, TAB ONE HALF TABLET IN AM AND ONE HALF TABLET AT NOON 11/11/16 Carvedilol (Coreg) 25 Mg Tablet, 1 TAB PO BIDWM, TAB BEST WITH FOOD. 11/11/16 Clonidine HCl (Clonidine HCl) 0.1 Mg Tablet, 0.5 TAB PO BID, TAB 1 TAB IN AM AND 0.5 TAB PO IN PM 11/11/16 Calcium Carbonate/Vitamin D3 (Calcium 600 + Vit D 400 Caplet) 1 Each Tablet, 1 TAB PO DAILY 04/08/15 Multivitamin (Multivitamins) 1 Each Tablet, 1 TAB PO DAILY 04/08/15 Omeprazole (Omeprazole) 20 Mg Capsule.dr, 1 CAP PO ACB 04/08/15 Potassium Chloride (Klor-Con M10) 10 Meq Tablet, 2 TAB PO BID 04/08/15 Meclizine HCl (Meclizine HCl) 25 Mg Tablet, 1 TAB PO Q6HR Y for dizziness, TAB 0300,0900,1500,2100 04/08/15 Face to Face Encounter I met with patient on the day of dismissal and discussed follow up appointments , medications, and safety plan. Discharge Disposition home WALTER LEE MD December 31, 2016 10:47
[2016-12-31] MEDS ORDERED: POTA10TA16 PO (10:59)
[2016-12-31] MEDS ORDERED: CARV25TA PO (10:59)
[2016-12-31] MEDS ORDERED: FISH1CAP28 PO (10:59)
[2016-12-31] MEDS ORDERED: OMEP20CA10 PO (10:59)
[2016-12-31] MEDS ORDERED: LEVO50TA11 PO (10:59)
[2016-12-31] MEDS ORDERED: TRAM50TA53 PO (10:59)
[2016-12-31] MEDS ORDERED: LOSA50TA52 PO (10:59)
[2016-12-31] MEDS ORDERED: FURO20TA4 PO (10:59)
[2016-12-31] MEDS ORDERED: CLON0.1T13 PO (10:59)
[2016-12-31] MEDS ORDERED: MECL-103 PO (10:59)
[2016-12-31 11:50] LABS: ALBUMIN/GLOBULIN RATIO 1.3 RATIO (1.1-2.2); ALKALINE PHOSPHATASE 80 U/L (38-126); ALT (SGPT) 40 U/L (9-52); ANION GAP 11 MEQ/L (5-15); AST (SGOT) 26 U/L (14-36); BUN/CREATININE RATIO 33 RATIO (6-26); CALCIUM 9.8 MG/DL (8.4-10.2); CHLORIDE 98 MEQ/L (98-107); CO2 - CARBON DIOXIDE 32 MEQ/L (22-30); GLOMERULAR FILTRATION RATE 52; GLUCOSE 120 MG/DL (65-110); POTASSIUM 4.1 MEQ/L (3.6-5); SODIUM 141 MEQ/L (134-144); TOTAL PROTEIN 7.2 G/DL (6.3-8.2)
--- NOTE | 2016-12-31 12:43 | PNPDOC ---
IRU Subjective Date DATE: 12/31/16 TIME: 12:41 Subjective Working well with PT adn OT, planning on d/c today. Pleased to be going home. IRU Objective Vital Signs Vital signs Vital Signs Date Time Temp Pulse Resp B/P Pulse Ox O2 Delivery O2 Flow Rate FiO2 12/31/16 08:00 77 18 12/31/16 07:40 97.5 176/97 97 Room Air Telemetry Rhythm: Sinus Rhythm Height (Feet): 5 Height (Inches): 2.00 Weight (Kilograms): 74.000 General General Appearance: Alert, Orientated x 2 Respiratory (Brief) Respiratory: FOUND: clear all lozano, equal bilaterally Cardiovascular (Brief) Cardiac: FOUND: regular rate, regular rhythm Integumentary (Brief) Comments right knee incision healing well, no cellulitis. Laboratory Laboratory Laboratory Tests Test 12/31/16 06:55 Hemoglobin 10.7GM/DL Turbidity < 20 Sodium Level 141MEQ/L Potassium Level 4.1MEQ/L Chloride Level 98MEQ/L Carbon Dioxide Level 32MEQ/L Anion Gap 11MEQ/L Blood Urea Nitrogen 33.0MG/DL Creatinine 1.0MG/DL Glomerular Filtration Rate Calc 52 BUN/Creatinine Ratio 33RATIO Glucose Level 120MG/DL Calculated Osmolality 279MOSM/KG Calcium Level 9.8MG/DL Total Bilirubin 0.40MG/DL Icterus Index < 2 Aspartate Amino Transf (AST/SGOT) 26U/L Alanine Aminotransferase (ALT/SGPT) 40U/L Alkaline Phosphatase 80U/L Total Protein 7.2G/DL Albumin 4.0G/DL Globulin 3.2G/DL Albumin/Globulin Ratio 1.3RATIO Chemistry Specimen Hemolysis < 15 Assessment & Plan Problems: (1) Hypertension Status: Chronic Assessment & Plan: managed by medical. (2) Status post total right knee replacement Status: Acute Assessment & Plan: PT and OT have followed plan of care and FIMs improved significantly. D/C today to home with PT/OT. (3) Hypernatremia Status: Acute Assessment & Plan: medical managed. DVT Prophylaxis: SCD'S Code Status Full Code Interventions to Obtain Goals PT Treatment Plan: Therapeutic Exercise, Gait Training, Functional Activities , Patient/Family Education OT Treatment Plan: ADL's (basic care), Ther. Exercise for ADL's, UE Functional Training, Balance Training, Pt./Family Education, IADL's Hospital Course Summary Disclaimer The hospital course summary below is not to be considered part of the above Progress Note. Hospital Course Summary 12/22/16 Overall, Alessandra is doing well. She does voice some mild concern about the right lower extremity swelling and erythema. Encouraged her to utilize ice packs. We will continue to monitor carefully. Does not appear to be acutely infected as there is no drainage. She is afebrile with a normal white count. Continue with postoperative anticoagulation of 325 milligrams aspirin twice a day Monitor blood pressure and continue on current regimen Catapres, Coreg Continue Lasix twice a day for ongoing diuresis Postoperative hemoglobin has remained stable at 10.5. Electrolytes reviewed this morning are normal. Take to encourage work with PT and OT for ongoing postoperative strengthening of improved function. 12/26/16 She continues to have moderate pain to the right lower extremity along with increasing swelling and ecchymosis. To rule out an acute DVT. We will obtain a venous Doppler of the right lower extremity. She continues on aspirin 325 milligrams twice a day for postoperative anticoagulation. Tylenol and tramadol for pain control Recheck CBC tomorrow morning to follow. Postoperative blood counts. In today to encourage work with PT and OT for ongoing strengthening 12/28/16 Venous doppler was neg for DVT. Labs done yesterday - hgb down from 10.5 to 9.3. Will repeat next week. Chemistry panel was unremarkable. Otherwise medically stable. 12/30 Medically Alessandra is doing well. Asked nursing staff to find out about toenail trimming policy for tomorrow Labs have remained stable Pain is controlled on Ultram Hopeful for discharge tomorrow 12/31/16 Stable for discharge both medically and physically. Improved FIMs and safe to be home with supervision. D/c with 2 wheel walker. Follow up with PCP, use home health for PT and OT. ANITA Willoughby MD, MD December 31, 2016 12:43
--- NOTE | 2016-12-31 12:46 | PNPDOC ---
IRU Subjective Date DATE: 12/27/16 TIME: 1600 Pt evaluated for Team meeting 12/27 Subjective PT working well with PT and OT, improving strength and she can tell she is doing better. IRU Objective Vital Signs Vital signs Vital Signs Date Time Temp Pulse Resp B/P Pulse Ox O2 Delivery O2 Flow Rate FiO2 12/31/16 08:00 77 18 12/31/16 07:40 97.5 176/97 97 Room Air Telemetry Rhythm: Sinus Rhythm Height (Feet): 5 Height (Inches): 2.00 Weight (Kilograms): 74.000 General General Appearance: Alert, Orientated x 2 Respiratory (Brief) Respiratory: FOUND: clear all loz[place], equal bilaterally Cardiovascular (Brief) Cardiac: FOUND: regular rate, regular rhythm Laboratory Laboratory Laboratory Tests Test 12/31/16 06:55 Hemoglobin 10.7GM/DL Turbidity < 20 Sodium Level 141MEQ/L Potassium Level 4.1MEQ/L Chloride Level 98MEQ/L Carbon Dioxide Level 32MEQ/L Anion Gap 11MEQ/L Blood Urea Nitrogen 33.0MG/DL Creatinine 1.0MG/DL Glomerular Filtration Rate Calc 52 BUN/Creatinine Ratio 33RATIO Glucose Level 120MG/DL Calculated Osmolality 279MOSM/KG Calcium Level 9.8MG/DL Total Bilirubin 0.40MG/DL Icterus Index < 2 Aspartate Amino Transf (AST/SGOT) 26U/L Alanine Aminotransferase (ALT/SGPT) 40U/L Alkaline Phosphatase 80U/L Total Protein 7.2G/DL Albumin 4.0G/DL Globulin 3.2G/DL Albumin/Globulin Ratio 1.3RATIO Chemistry Specimen Hemolysis < 15 Assessment & Plan Problems: (1) Hypertension Status: Chronic Assessment & Plan: managed by medial. (2) Status post total right knee replacement Status: Acute Assessment & Plan: Pt improving strength and FIMs Plan to d/c early last week. (3) Hypernatremia Status: Acute Assessment & Plan: stable, managed by medical. DVT Prophylaxis: SCD'S Code Status Full Code Interventions to Obtain Goals PT Treatment Plan: Therapeutic Exercise, Gait Training, Functional Activities , Patient/Family Education OT Treatment Plan: ADL's (basic care), Ther. Exercise for ADL's, UE Functional Training, Balance Training, Pt./Family Education, IADL's Hospital Course Summary Disclaimer The hospital course summary below is not to be considered part of the above Progress Note. Hospital Course Summary 12/22/16 Overall, Alessandra is doing well. She does voice some mild concern about the right lower extremity swelling and erythema. Encouraged her to utilize ice packs. We will continue to monitor carefully. Does not appear to be acutely infected as there is no drainage. She is afebrile with a normal white count. Continue with postoperative anticoagulation of 325 milligrams aspirin twice a day Monitor blood pressure and continue on current regimen Catapres, Coreg Continue Lasix twice a day for ongoing diuresis Postoperative hemoglobin has remained stable at 10.5. Electrolytes reviewed this morning are normal. Take to encourage work with PT and OT for ongoing postoperative strengthening of improved function. 12/26/16 She continues to have moderate pain to the right lower extremity along with increasing swelling and ecchymosis. To rule out an acute DVT. We will obtain a venous Doppler of the right lower extremity. She continues on aspirin 325 milligrams twice a day for postoperative anticoagulation. Tylenol and tramadol for pain control Recheck CBC tomorrow morning to follow. Postoperative blood counts. In today to encourage work with PT and OT for ongoing strengthening 12/28/16 Venous doppler was neg for DVT. Labs done yesterday - hgb down from 10.5 to 9.3. Will repeat next week. Chemistry panel was unremarkable. Otherwise medically stable. 12/30 Medically Alessandra is doing well. Asked nursing staff to find out about toenail trimming policy for tomorrow Labs have remained stable Pain is controlled on Ultram Hopeful for discharge tomorrow 12/31/16 Stable for discharge both medically and physically. Improved FIMs and safe to be home with supervision. D/c with 2 wheel walker. Follow up with PCP, use home health for PT and OT. Kevin LEE,KEVIN Rollins MD December 31, 2016 12:46
--- NOTE | 2016-12-31 14:15 | NUR ---
Discharge Summary Pt. is very pleasant. VS's stable. Pt. is on RA. She has denied n/v. Pt. is a Mod-I to supervision assist transfer x1 with FWW and gait belt. Pt. has ambulated to all meals. She is incontinent of bladder at times. I/O adequate. Pt. has been rating ache pain in right knee a 2/10 this shift. She is on scheduled Tylenol. Please see eMAR. Re-positioning and polar pack encouraged. Right knee mepilex dressing C/D/I. Bilateral pedal pulses palpable. Discharge instructions and meds reviewed with pt. Prescriptions put in packet and sent with pt. Pt. did not request any prescriptions be called in. Pt. is wheeled out to ER entrance by ZECHARIAH Walker, and this RN. is present. Pt. is discharged to home.
--- NOTE | 2016-12-31 15:43 | NUR ---
CM PRIOR TO DC: WALKER DELIVERED TO PT'S ROOM. HOME HEALTH ORDERS PROVIDED TO MOUNA WITH [facility].
== END 2016-12-31 14:15 | disposition home health service (06) | DRG 560 ==
PROVIDERS: ADMIT Family Medicine; ATTEND Family Medicine
PROC: F07Z9FZ Gait Training/Functional Ambulation Treatment using Assistive, Adaptive, Supportive or Protective Equipment (ICD-10-PCS; principal; 2016-12-18)
PROC: F07M6ZZ Therapeutic Exercise Treatment of Musculoskeletal System - Whole Body (ICD-10-PCS; 2016-12-18)
PROC: F08Z4ZZ Home Management Treatment (ICD-10-PCS; 2016-12-18)
DX: Z47.1 Aftercare following joint replacement surgery (principal); E87.0 Hyperosmolality and hypernatremia; I50.32 Chronic diastolic (congestive) heart failure; Z96.651 Presence of right artificial knee joint; I10 Essential (primary) hypertension; M19.91 Primary osteoarthritis, unspecified site; R32 Unspecified urinary incontinence; I11.0 Hypertensive heart disease with heart failure; K21.9 Gastro-esophageal reflux disease without esophagitis; E66.9 Obesity, unspecified; E78.5 Hyperlipidemia, unspecified; E03.9 Hypothyroidism, unspecified; I27.2 Other secondary pulmonary hypertension; D64.9 Anemia, unspecified; Z79.82 Long term (current) use of aspirin; Z68.29 Body mass index [BMI] 29.0-29.9, adult
CPT/HCPCS: 36415; 80048; 80053; 85018; 85025